=== PATIENT | female | born 1940 | race Caucasian/White ===

== ENCOUNTER 2018-01-03 10:59 | Emergency (ER) | payer OTHER ==
[~2018-01-03] VITALS: Ht 152.4 cm; Wt 69.9 kg
[~2018-01-03 10:59] MED LIST: PRED1SUS3 OPR
[2018-01-03 11:03] VITALS: TEMP 36.6; Ht 152.4 cm; Wt 69.9 kg
[2018-01-03 11:28] VITALS: O2SAT 97
[2018-01-03] MEDS ORDERED: OPTIRAY 320 IV PRN (11:30)
--- NOTE | 2018-01-03 11:39 | EMERGENCY ROOM VISIT NOTE ---
ED Visit Note First contact with patient: 11:06 CHIEF COMPLAINT: Shortness of breath, left upper back pain HISTORY OF PRESENTING ILLNESS: This is a 77-year-old female who presents to the emergency department with complaint of shortness of breath and left upper back pain that started yesterday. Patient states that she has been having a cough for the past week that she attributes to allergies, she states yesterday she was having a coughing fit when she got a sudden sharp pain in her left upper back. She describes the pain is constant, sharp and stabbing, worse with lying down, better with getting up and walking, rates as 8/10. She has been taking ibuprofen which she states helps the pain. She states that her cough has been productive of some light yellow sputum, she denies any blood. She denies any fevers or chills. She denies any chest pain. She denies any dizziness or syncope. She denies abdominal pain, back pain, nausea or vomiting, diarrhea, bloody or black stools, urinary symptoms, or unusual rash. Patient states that she has not seen her doctor in several years. REVIEW OF SYSTEMS: A complete 10 point review of systems was reviewed with the patient with pertinent positives and negatives as per history of present illness. All else were negative. PAST MEDICAL HISTORY: Patient reports a remote history of iron deficiency anemia , she is not currently on medications for this. SOCIAL HISTORY: Lives at home. She denies tobacco use, alcohol or recreational drug use. ALLERGIES: No known allergies. PHYSICAL EXAM: CONSTITUTIONAL: Pleasant and cooperative. No acute distress. Well appearing and well nourished. HEENT: Normocephalic, atraumatic. Pupils equal, round and reactive to light, EOMI. TMs normal. Pharynx normal. NECK: Supple, full active range of motion without discomfort. No cervical adenopathy. RESPIRATORY: Slightly diminished in the bases, otherwise clear to auscultation bilaterally with no wheezing, crackles, rhonchi or stridor. Breathing appears mildly labored, but no tachypnea or accessory muscle use. Equal expansion bilaterally. CARDIOVASCULAR: Regular rate and rhythm with no murmurs, rubs or gallops. Normal peripheral perfusion. No edema. GASTROINTESTINAL: Soft, nontender, nondistended. No palpable masses or HSM. Bowel sounds present in all quadrants. MUSCULOSKELETAL: Full range of motion of all joints without discomfort. INTEGUMENTARY: No rash or other significant dermatologic conditions noted. NEUROLOGIC: Alert and oriented X 4 with normal affect. Normal strength and sensation in all 4 extremities. No focal neurologic deficits noted. Normal speech. Normal gait observed. ED COURSE AND MEDICAL DECISION MAKING: CC: Patient presenting with complaint of left upper back pain, shortness of breath, and cough DIFFERENTIAL DIAGNOSIS: Includes, but not limited to viral URI, bronchitis, pneumonia, PE, rib fracture, musculoskeletal sprain/strain, costochondritis, ACS , among others. INTERPRETATION OF LABS: No leukocytosis, anemia (appears microcytic), no significant electrolyte abnormalities, normal renal function, normal liver enzymes and lipase. Negative troponin. IMAGING: CHEST 2 VIEWS ROUTINE HISTORY: 77 years-old Female CHEST PAIN acute atypical chest pain COMPARISON: None available TECHNIQUE: PA and lateral views of the chest FINDINGS: The cardiomediastinal and hilar silhouettes are within normal limits. No pneumothorax, pleural effusion, focal airspace consolidation or overt pulmonary edema. Degenerative changes of the shoulders and spine. IMPRESSION: No acute process. ----- (CHEST FOR PE) ANGIO WITH CT DOSE: 443.35 mGy.cm HISTORY: 77 years-old Female presents with acute atypical chest pain and shortness of breath with cough TECHNIQUE: Multiple CTA images of the chest were obtained after the intravenous administration of 88 ml Optiray 320. Coronal and sagittal MIPS were obtained from the axial data set and were submitted for review. A dose lowering technique was utilized adhering to the principles of ALARA. COMPARISON: Chest radiographs of same day FINDINGS: CTA: Moderate multichamber cardiac enlargement without pericardial effusion. Coronary arterial calcifications are noted. Thoracic aorta is normal in both course and caliber without aneurysm, dissection or significant atherosclerotic plaquing. The imaged great vessels appear patent. The pulmonary arterial tree is opacified to level of the lobar branches with the segmental and subsegmental branches not well seen secondary to respiratory motion, notably at the level of the lung bases. CT CHEST: No dominant thyroid nodule. 7 mm right tracheoesophageal recess lymph node is seen on image 27 series 4. Mildly enlarged 11 mm subcarinal lymph node. There are multiple prominent nonenlarged paratracheal lymph nodes also present. There is no pneumothorax or pleural effusion. Mild dependent subsegmental atelectasis. No suspicious pulmonary nodules or masses. Mild bronchial wall thickening is noted bilaterally. No acute process of the imaged upper abdomen. Soft tissues are within normal limits. Degenerative changes of the spine are noted. IMPRESSION: 1. No evidence of acute aortic pathology or evidence of pulmonary thromboembolic disease. Study however is limited secondary to respiratory motion as above. 2. Mild mediastinal adenopathy, possibly reactive. 3. Mild bilateral bronchial wall thickening suggests bronchitis. No lobar airspace consolidation to suggest pneumonia. 4. Cardiomegaly with coronary arterial disease. EKG: Shows normal sinus rhythm with a rate of 81 bpm, no acute ischemic changes noted by my interpretation. No previous EKGs available for comparison. MEDICATION RECONCILIATION: I attest that I have personally reviewed the patient 's current medication list. INITIAL VITAL SIGNS REVIEW: I reviewed the patient's initial vital signs and interpret them as follows: T: Afebrile; BP: Hypertensive; HR: Within normal limits; RR: Within normal limits; Pulse Ox: Within normal limits on room air. Blood pressure screening: The patient was found to have an elevated blood pressure and was referred to their primary doctor for recheck and further treatment. SUMMARY: Patient was evaluated at bedside, history and physical exam performed. Patient is alert and oriented, in no acute distress, but does have mildly labored breathing. EKG reviewed at bedside, noting normal sinus rhythm with no acute ischemic changes. Orders were placed at bedside for labs, chest x-ray, CT chest to evaluate for PE. Patient discussed with Dr. Joaquin, who agrees with my assessment and plan. Labs and imaging reviewed as above, no evidence for PE or other significant cardiopulmonary disease. Findings consistent with bronchitis. Patient was given IV Toradol for her pain, with good improvement. She was given an albuterol inhaler with spacer for her cough, she states that this has helped. Labs notable for anemia, which appears to be microcytic. Digital rectal exam was performed with survey cad technician serving as rn cardiovascular icu, noting brown stool that is guaiac negative. Patient does report a history of iron deficiency anemia in the past, but states she has not been taking iron supplements for years. Spoke with Tyrell from case management, we are unable to obtain any previous lab values for comparison. Given patient's reported history of iron deficiency anemia and that she appears to be clinically stable, I do feel she is appropriate for discharge with PCP follow-up. Case management worked with the patient to establish a follow-up appointment with her PCP to address the anemia, as well as follow-up on her hypertension and bronchitis from today. Patient reassessed multiple times throughout ED stay, she appears more comfortable and states that she is feeling much better. She is asking to be discharged home. Patient was updated on all results and plan for discharge, she was encouraged to follow closely with her PCP. She was sent home with the albuterol inhaler and instructed on its use. Patient was also given strict return precautions should her symptoms worsen, she verbalized understanding. Patient was discharged home in stable condition and ambulatory. Current/Historical Medications No Active Prescriptions or Reported Meds Allergies Coded Allergies: No Known Allergies (Unverified , 01/03/18) Vital Signs Date Time Temp Pulse Resp B/P (MAP) Pulse Ox O2 Delivery O2 Flow Rate FiO2 01/03/18 15:11 93 20 198/93 100 01/03/18 14:11 83 20 207/91 97 Room Air 01/03/18 12:52 95 01/03/18 12:46 95 20 209/97 98 Room Air 01/03/18 11:28 97 Room Air 01/03/18 11:03 36.6 74 18 166/75 100 Room Air Laboratory Results 01/03/18 11:20 Red Blood Count 3.80, Mean Corpuscular Volume 78.2, Mean Corpuscular Hemoglobin 23.4, Mean Corpuscular Hemoglobin Concent 30.0, Mean Platelet Volume 9.6, Neutrophils (%) (Auto) 53.0, Lymphocytes (%) (Auto) 32.1, Monocytes (%) (Auto) 10.4, Eosinophils (%) (Auto) 3.7, Basophils (%) (Auto) 0.4, Neutrophils # (Auto ) 2.59, Lymphocytes # (Auto) 1.57, Monocytes # (Auto) 0.51, Eosinophils # (Auto ) 0.18, Basophils # (Auto) 0.02 01/03/18 11:20 Test 01/03/18 11:20 White Blood Count 4.89 K/uL (4.8-10.8) Red Blood Count 3.80 M/uL (4.2-5.4) Hemoglobin 8.9 g/dL (12.0-16.0) Hematocrit 29.7 % (37-47) Mean Corpuscular Volume 78.2 fL (80-100) Mean Corpuscular Hemoglobin 23.4 pg (25-34) Mean Corpuscular Hemoglobin Concent 30.0 g/dl (32-36) Platelet Count 365 K/uL (130-400) Mean Platelet Volume 9.6 fL (7.4-10.4) Neutrophils (%) (Auto) 53.0 % Lymphocytes (%) (Auto) 32.1 % Monocytes (%) (Auto) 10.4 % Eosinophils (%) (Auto) 3.7 % Basophils (%) (Auto) 0.4 % Neutrophils # (Auto) 2.59 K/uL (1.4-6.5) Lymphocytes # (Auto) 1.57 K/uL (1.2-3.4) Monocytes # (Auto) 0.51 K/uL (0.11-0.59) Eosinophils # (Auto) 0.18 K/uL (0-0.5) Basophils # (Auto) 0.02 K/uL (0-0.2) RDW Standard Deviation 47.4 fL (36.4-46.3) RDW Coefficient of Variation 16.6 % (11.5-14.5) Immature Granulocyte % (Auto) 0.4 % Immature Granulocyte # (Auto) 0.02 K/uL (0.00-0.02) Red Blood Cell Morphology Unremarkable Anion Gap 5.0 mmol/L (3-11) Est Creatinine Clear Calc Drug Dose 33.7 ml/min Estimated GFR () 50.1 Estimated GFR (Non- 43.3 BUN/Creatinine Ratio 13.5 (10-20) Calcium Level 8.5 mg/dl (8.5-10.1) Total Bilirubin 0.3 mg/dl (0.2-1) Direct Bilirubin 0.1 mg/dl (0-0.2) Aspartate Amino Transf (AST/SGOT) 19 U/L (15-37) Alanine Aminotransferase (ALT/SGPT) 21 U/L (12-78) Alkaline Phosphatase 100 U/L (45-117) Troponin I < 0.015 ng/ml (0-0.045) Total Protein 7.7 gm/dl (6.4-8.2) Albumin 3.4 gm/dl (3.4-5.0) Lipase 159 U/L (73-393) Medications Administered Medications (Trade) Dose Ordered Sig/Ana Route Start Time Stop Time Status Last Admin Dose Admin Ketorolac Tromethamine (Toradol Inj) 15 mg NOW STAT IV 01/03/18 13:56 01/03/18 13:58 DC 01/03/18 14:04 15 MG Albuterol (Ventolin Hfa Inhaler) 2 puffs NOW ONCE INH 01/03/18 14:00 01/03/18 14:01 DC 01/03/18 14:04 2 PUFFS Departure Information Impression Primary Impression: Musculoskeletal back pain Additional Impression: Acute bronchitis Dispostion Home / Self-Care Condition GOOD Prescriptions No Active Prescriptions or Reported Meds Referrals Lionel Marroquin D.O. (PCP) Patient Instructions ED Bronchitis Asthmatic, ED Spasm Back No Trauma, My [facility] Additional Instructions You have been evaluated in the emergency department for your cough and back pain. There is no evidence of pneumonia on your chest x-ray. It is suspected that you have bronchitis, which is most likely caused by a virus. Use the albuterol inhaler TWO puffs every 4 hours with the spacer as needed for cough, wheezing, chest tightness. You should also use this before bed to help prevent coughing so that you can sleep better at night. For chest pain, you can use the following [id number] medicines (if >12 yo) : - Regular strength (325mg/tab) Tylenol (acetaminophen) 2 tabs every 4-6 hours as needed. Do not exceed 10 tablets in a 24 hour period. Avoid taking more than 3000 mg of Tylenol per day. This includes any other sources of acetaminophen you may take on a regular basis. - Regular strength (200 mg/tab) Advil (ibuprofen) 3 tabs every 6-8 hours as needed. Do not exceed a dose of 2400 mg per day. - For best results, alternate dosing of Tylenol and Advil. Take it easy for the next few days, no strenuous activity, heavy lifting, or bending/twisting motions, to allow your back to rest. Alternate heat and ice for comfort. After heat, you may do gentle stretching and massage to the area. Drink plenty of fluids to stay well hydrated. Please follow-up with your PCP in the next few days to be rechecked if your symptoms are not getting any better. You also need to have your blood pressure rechecked and follow-up of your anemia. Please return to the emergency department if your symptoms worsen over the next 2-3 days despite treatment course outlined above. Return to the emergency department if you develop the following symptoms of: inability to swallow solids , liquids, or drool; excessive wheezing or inability to catch your breath; worsening chest pain, coughing up blood, severe dizziness or passing out; fever or pain that becomes unmanageable with [id number] medications; or any other concerns. Problem Qualifiers Additional Impression: Acute bronchitis Bronchitis organism: unspecified organism Qualified Codes: J20.9 - Acute bronchitis, unspecified
[2018-01-03 11:58] LABS: ALBUMIN 3.4 gm/dl (3.4-5.0); ALT/SGPT 21 U/L (12-78); AST/SGOT 19 U/L (15-37); BLOOD UREA NITROGEN 16 mg/dl (7-18); CALCIUM 8.5 mg/dl (8.5-10.1); CARBON DIOXIDE 24 mmol/L (21-32); GLUCOSE 96 mg/dl (70-99); HEMATOCRIT 29.7 % (37-47); HEMOGLOBIN 8.9 g/dL (12.0-16.0); LIPASE 159 U/L (73-393); MEAN CELL VOLUME 78.2 fL (80-100); MEAN CORPUSCULAR HEMOGLOBIN 23.4 pg (25-34); MEAN PLATELET VOLUME 9.6 fL (7.4-10.4); PLATELET COUNT 365 K/uL (130-400); POTASSIUM 4.1 mmol/L (3.5-5.1); RED CELL DISTRIBUTION WIDTH CV 16.6 % (11.5-14.5); RED CELL DISTRIBUTION WIDTH SD 47.4 fL (36.4-46.3); SODIUM 141 mmol/L (136-145); WHITE BLOOD COUNT 4.89 K/uL (4.8-10.8)
[2018-01-03 12:03] LABS: ALKALINE PHOSPHATASE 100 U/L (45-117); TOTAL PROTEIN 7.7 gm/dl (6.4-8.2)
--- NOTE | 2018-01-03 12:21 | DIAGNOSTIC IMAGING REPORT ---
CHEST 2 VIEWS ROUTINE HISTORY: 77 years-old Female CHEST PAIN acute atypical chest pain COMPARISON: None available TECHNIQUE: PA and lateral views of the chest FINDINGS: The cardiomediastinal and hilar silhouettes are within normal limits. No pneumothorax, pleural effusion, focal airspace consolidation or overt pulmonary edema. Degenerative changes of the shoulders and spine. IMPRESSION: No acute process. The above report was generated using voice recognition software. It may contain grammatical, syntax or spelling errors. Electronically signed by: Yung Maguire M.D. 01/03/2018 12:20 PM Dictated Date/Time: 01/03/2018 12:18 PM
--- NOTE | 2018-01-03 12:55 | DIAGNOSTIC IMAGING REPORT ---
(CHEST FOR PE) ANGIO WITH CT DOSE: 443.35 mGy.cm HISTORY: 77 years-old Female presents with acute atypical chest pain and shortness of breath with cough TECHNIQUE: Multiple CTA images of the chest were obtained after the intravenous administration of 88 ml Optiray 320. Coronal and sagittal MIPS were obtained from the axial data set and were submitted for review. A dose lowering technique was utilized adhering to the principles of ALARA. COMPARISON: Chest radiographs of same day FINDINGS: CTA: Moderate multichamber cardiac enlargement without pericardial effusion. Coronary arterial calcifications are noted. Thoracic aorta is normal in both course and caliber without aneurysm, dissection or significant atherosclerotic plaquing. The imaged great vessels appear patent. The pulmonary arterial tree is opacified to level of the lobar branches with the segmental and subsegmental branches not well seen secondary to respiratory motion, notably at the level of the lung bases. CT CHEST: No dominant thyroid nodule. 7 mm right tracheoesophageal recess lymph node is seen on image 27 series 4. Mildly enlarged 11 mm subcarinal lymph node. There are multiple prominent nonenlarged paratracheal lymph nodes also present. There is no pneumothorax or pleural effusion. Mild dependent subsegmental atelectasis. No suspicious pulmonary nodules or masses. Mild bronchial wall thickening is noted bilaterally. No acute process of the imaged upper abdomen. Soft tissues are within normal limits. Degenerative changes of the spine are noted. IMPRESSION: 1. No evidence of acute aortic pathology or evidence of pulmonary thromboembolic disease. Study however is limited secondary to respiratory motion as above. 2. Mild mediastinal adenopathy, possibly reactive. 3. Mild bilateral bronchial wall thickening suggests bronchitis. No lobar airspace consolidation to suggest pneumonia. 4. Cardiomegaly with coronary arterial disease. The above report was generated using voice recognition software. It may contain grammatical, syntax or spelling errors. Electronically signed by: Yung Maguire M.D. 01/03/2018 12:53 PM Dictated Date/Time: 01/03/2018 12:47 PM
[2018-01-03 12:57] LABS: BASO % 0.4 %; BASO ABS # 0.02 K/uL (0-0.2); EOS % 3.7 %; EOS ABS # 0.18 K/uL (0-0.5); IG# 0.02 K/uL (0.00-0.02); LYMPH % 32.1 %; LYMPH ABS # 1.57 K/uL (1.2-3.4); MONO % 10.4 %; MONO ABS # 0.51 K/uL (0.11-0.59); NEUT ABS # 2.59 K/uL (1.4-6.5)
--- NOTE | 2018-01-03 13:04 | EMERGENCY ROOM VISIT NOTE ---
ED Visit Note First contact with patient: 11:06 Patient was seen by our PA/SENIOR ADVISOR. I was involved in the patient's care and did evaluate the patient myself. I was involved in the care throughout the ER stay. The patient presents with pleuritic chest pain. Hemoglobin is somewhat low, this will need to be further investigated. Cardiac workup is benign. No findings to suggest PE or pneumonia or pneumothorax by CT, bronchitis was suggested. Patient was reassured and will be discharged home with outpatient follow-up.
[2018-01-03] MEDS ORDERED: KETOROLAC TROMETHAMINE 30 MG/ML VIAL IV STA (13:56)
[2018-01-03] MEDS ORDERED: ALBUTEROL HFA 8 GM INHALER INH ONE (14:00)
[2018-01-03 15:11] VITALS: BP 198/93; PULSE 93; O2SAT 100
== END 2018-01-03 15:13 | disposition home or self-care (01) ==
LOC: C.EDB 11:01 → C.EDC 15:13
DX: J20.9 Acute bronchitis, unspecified (principal); M54.9 Dorsalgia, unspecified

== ENCOUNTER 2021-04-16 09:07 | Observation (INO) ==
[2021-04-16] MEDS ORDERED: ONDANSETRON INJ 2 MG/ML 2 ML VIAL IV STA (09:30)
[2021-04-16] MEDS ORDERED: KETOROLAC TROMETHAMINE 15 MG/ML VIAL IV ONE (09:30)
[2021-04-16] MEDS ORDERED: MoRPHine SULFATE 2 MG/ML CARP IV STA (09:30)
--- NOTE | 2021-04-16 09:33 | Emergency Department Note ---
Impression & Plan Cecum mass, Anemia, Hypertension, Back pain ED Provider Note NAME: KATJA TSAI AGE: 80 SEX: F : 1940 ARRIVES VIA: Walk-In INFORMANT: Patient ED PROVIDER(S): Bryan Cordero DO CHIEF COMPLAINT: Left back pain HPI: Patient is an 80-year-old female who presents ER for left lower back pain. This has been present for the past 6 months. She notes it comes and goes. Pain currently is an 8 out of 10. She notes it is worse when lying down and she will get spasms and shocks to get up. When she walks around it improves. She denies any belly pain, nausea, vomiting, or diarrhea. She has been taking Tylenol with minimal improvement. Denies any dysuria, urgency, or frequency. No other exacerbating or remitting factors other than significantly worsened with palpation. She denies any weakness or numbness in the legs. Pain does go down to her left lower buttocks. She has spasms going up to her left mid thoracic spine. ROS: See above HPI for pertinent positives & negatives. A total of 10 systems reviewed and were otherwise negative. PAST MEDICAL HISTORY:See Below PAST SURGICAL HISTORY:See Below FAMILY HISTORY:See Below SOCIAL HISTORY:See Below HOME MEDICATIONS:See Below ALLERGIES:See Below VITALS:See Below PHYSICAL EXAMINATION: GENERAL: Sitting up in bed, alert, well appearing, well nourished, no distress, non-toxic EYE EXAM: normal conjunctiva. NECK: supple, no nuchal rigidity, no adenopathy, non-tender LUNGS: Clear to auscultation. Normal chest wall mechanics HEART: S1 normal and S2 normal ABDOMEN: abdomen soft, non-tender, normo-active bowel sounds, no masses, no rebound or guarding. BACK: Back is symmetrical on inspection and there is no deformity, no midline tenderness, diffuse lower lumbar paraspinal tenderness tracking up to the lower mid thoracic SKIN: no rashes and no bruising UPPER EXTREMITIES: upper extremities are grossly normal. LOWER EXTREMITIES: Flexion and extension of the hips, knees, ankles, and EHL 5/5 bilaterally. Gross sensation is intact. DPs are 2/4 bilateral. Patellar and Achilles reflexes are 2/4 bilateral. Able to walk without difficulty. NEURO EXAM: Normal sensorium, cranial nerves II-XII grossly intact, normal speech, no gross weakness of arms, no gross weakness of legs. MEDICAL DECISION MAKING: Patient is an 80-year-old female who presents the ER for left-sided back pain. On exam she has reproducible pain radiating down to the back. IV was established blood work was obtained. Labs show no significant leukocytosis. There is a significant anemia of 5.9. Patient was fairly pale appearing. BMP with a slightly low CO2 at 20. LFTs bilirubin was unremarkable. Lipase was normal. UA was clean. Covid was negative. Patient was typed and crossed. She was ordered 2 units of PRBCs. Rectal was performed with nurse at bedside but no stool present. It was heme-negative. CT abdomen pelvis shows cecal mass. CT lumbar spine showed DJD. Patient was given IV fluids morphine and updated bedside. She was given an order 2 units of PRBCs while in the ER. Discussed with hospitalist admitted for further work-up. Triage Nursing notes reviewed. Limited review of prior medical records performed Vital Signs: reviewed and remarkable for HTN Differential diagnosis: Differential diagnoses includes but is not limited to lumbar radiculopathy, kidney stone, muscle strain, facture, cauda equina, mass, and disc herniation. ER treatment provided: See below Diagnostics interpreted by me: Cardiac Monitoring: An order was placed for continuous cardiac monitoring. The monitor shows a rate of 62 with sinus rhythm. Laboratory studies: As stated above and show below. Imaging studies: CT abdomen pelvis shows a cecal mass Consultation(s): Discussed with Hugh Calabrese for admission Discussed with Debra carias from general surgery in regards to the CT showing cecal mass and pushing on the appendix with mild surrounding inflammation Procedures: none Critical Care: I have personally spent 31 minutes of critical care time in the direct management of this patient. This includes bedside care, interpretation of diagnostic studies, and testing, discussion with consultants, patient, and family members, and other required patient management activities. This 31 minutes is in excess of all separately billable procedures. Past Med/Surg History Medical History (Updated 04/16/21 @ 16:14 by Bryan Cordero DO) Anemia CKD (chronic kidney disease) stage 4, GFR 15-29 ml/min Surgical History (Updated 04/16/21 @ 12:18 by Juancho Calabrese MD) H/O section Social History (Updated 04/16/21 @ 12:19 by Juancho Calabrese MD) Smoking Status: Former smoker Tobacco Type: Cigarettes Hx Alcohol Use: Yes (Occasional) Alcohol type: beer Hx Substance Use: No Feels Safe at Home: Yes Allergies Allergies Allergy/AdvReac Type Severity Reaction Status Date / Time No Known Allergies Allergy Unverified 04/16/21 11:26 Home Meds Home Medications Medication Instructions Recorded Confirmed acetaminophen 500 mg tablet 1,000 mg PO Q6H PRN 04/16/21 04/16/21 (Tylenol Extra Strength) Results & Data (ED) Vital Signs Vital Signs - 24 hr 04/16/21 09:12 04/16/21 09:54 04/16/21 10:22 Temperature 36.4 C L Temperature Source Oral Pulse Rate 78 Pulse Rate [Finger] 97 H Pulse Rhythm Regular Pulse Strength Normal Respiratory Rate 20 22 Respiratory Effort / Characteristics Non-Labored Spontaneous Respiratory Depth Normal Respiratory Pattern Regular Blood Pressure 173/67 H Blood Pressure [Left Arm] 193/81 H Blood Pressure Mean 102 Blood Pressure Mean [Left Arm] 118 Pulse Oximetry 100 96 96 Oxygen Delivery Method Room Air Room Air Room Air Sepsis Recent Fever Within 48 Hours No Sepsis New/Unexplained Change in Mental Status N/A Sepsis Action Taken by Nursing No Action Required 04/16/21 10:47 04/16/21 12:08 Temperature 36.8 C Temperature Source Oral Pulse Rate 69 Pulse Rate [Finger] 94 H Pulse Rhythm Pulse Strength Respiratory Rate 20 14 Respiratory Effort / Characteristics Respiratory Depth Respiratory Pattern Blood Pressure 187/65 H Blood Pressure [Left Arm] 191/86 H Blood Pressure Mean 105 Blood Pressure Mean [Left Arm] 121 Pulse Oximetry 98 97 Oxygen Delivery Method Room Air Sepsis Recent Fever Within 48 Hours Sepsis New/Unexplained Change in Mental Status Sepsis Action Taken by Nursing Laboratory Data Result diagrams: 04/16/21 09:45 04/16/21 09:45 Lab Results 04/16/21 04/16/21 04/16/21 Range/Units 09:45 09:45 10:29 WBC 6.69 (4.8-10.8) K/uL RBC 3.57 L (4.2-5.4) M/uL Hgb 5.9 L* (12.0-16.0) g/dL Hct 22.8 L (37-47) % MCV 63.9 L (80-100) fL MCH 16.5 L (25-34) pg MCHC 25.9 L (32-36) g/dL RDW Std Deviation 48.3 H (36.4-46.3) fL RDW Coeff of Stevie 20.4 H (11.5-14.5) % Plt Count 656 H (130-400) K/uL MPV 9.2 (7.4-10.4) fL Immature Gran % (Auto) 0.1 % Neut % (Auto) 55.7 % Lymph % (Auto) 33.5 % [place] % (Auto) 6.6 % Eos % (Auto) 3.7 % Baso % (Auto) 0.4 % Neut # (Auto) 3.72 (1.4-6.5) K/uL Lymph # (Auto) 2.24 (1.2-3.4) K/uL [place] # (Auto) 0.44 (0.11-0.59) K/uL Eos # (Auto) 0.25 (0-0.5) K/uL Baso # (Auto) 0.03 (0-0.2) K/uL Immature Gran # (Auto) 0.01 (0.00-0.02) K/uL Hypochromasia Present Anisocytosis Present Sodium 143 (136-145) mmol/L Potassium 4.2 (3.5-5.1) mmol/L Chloride 112 H (98-107) mmol/L Carbon Dioxide 20 L (21-32) mmol/L Anion Gap 11.0 (3-11) BUN 13 (7-18) mg/dl Creatinine 1.29 H (0.6-1.2) mg/dl Est Cr Clr Drug Dosing 26.0 ml/min Est GFR ( Amer) 45.0 ml/min Est GFR (Non-Af Amer) 38.8 ml/min BUN/Creatinine Ratio 10.3 (10-20) Glucose 90 (70-99) mg/dl Calcium 8.5 (8.5-10.1) mg/dl Total Bilirubin 0.3 (0.2-1) mg/dl AST 11 L (15-37) U/L ALT 11 L (12-78) U/L Alkaline Phosphatase 110 (45-117) U/L Total Protein 7.5 (6.4-8.2) gm/dl Albumin 3.3 L (3.4-5.0) gm/dl Globulin 4.2 H (2.5-4.0) gm/dl Albumin/Globulin Ratio 0.8 L (0.9-2) Lipase 135 (73-393) U/L COVID-19 Eval Order SARS-CoV-2 (PCR) (Negative) Blood Type A Positive Blood Type Recheck Antibody Screen NEGATIVE Crossmatch See Detail 04/16/21 04/16/21 04/16/21 Range/Units 11:03 11:45 11:45 WBC (4.8-10.8) K/uL RBC (4.2-5.4) M/uL Hgb (12.0-16.0) g/dL Hct (37-47) % MCV (80-100) fL MCH (25-34) pg MCHC (32-36) g/dL RDW Std Deviation (36.4-46.3) fL RDW Coeff of Stevie (11.5-14.5) % Plt Count (130-400) K/uL MPV (7.4-10.4) fL Immature Gran % (Auto) % Neut % (Auto) % Lymph % (Auto) % [place] % (Auto) % Eos % (Auto) % Baso % (Auto) % Neut # (Auto) (1.4-6.5) K/uL Lymph # (Auto) (1.2-3.4) K/uL [place] # (Auto) (0.11-0.59) K/uL Eos # (Auto) (0-0.5) K/uL Baso # (Auto) (0-0.2) K/uL Immature Gran # (Auto) (0.00-0.02) K/uL Hypochromasia Anisocytosis Sodium (136-145) mmol/L Potassium (3.5-5.1) mmol/L Chloride (98-107) mmol/L Carbon Dioxide (21-32) mmol/L Anion Gap (3-11) BUN (7-18) mg/dl Creatinine (0.6-1.2) mg/dl Est Cr Clr Drug Dosing ml/min Est GFR ( Amer) ml/min Est GFR (Non-Af Amer) ml/min BUN/Creatinine Ratio (10-20) Glucose (70-99) mg/dl Calcium (8.5-10.1) mg/dl Total Bilirubin (0.2-1) mg/dl AST (15-37) U/L ALT (12-78) U/L Alkaline Phosphatase (45-117) U/L Total Protein (6.4-8.2) gm/dl Albumin (3.4-5.0) gm/dl Globulin (2.5-4.0) gm/dl Albumin/Globulin Ratio (0.9-2) Lipase (73-393) U/L COVID-19 Eval Order Covid19 at [facility] SARS-CoV-2 (PCR) NEGATIVE (Negative) Blood Type Blood Type Recheck A Positive Antibody Screen Crossmatch Administered Medications Discontinued Medications Ioversol (Optiray 320 100ml) 95 ml IV ONCE ONE Stop: 04/16/21 10:35 Last Admin: 04/16/21 10:35 Dose: 95 ml Documented by: [id number] Ketorolac Tromethamine (Ketorolac Tromethamine 15 Mg/Ml Vial) 10 mg IV NOW ONE Stop: 04/16/21 09:31 Last Admin: 04/16/21 09:50 Dose: 10 mg Documented by: [id number] Morphine Sulfate (Morphine Sulfate 2 Mg/Ml Carp) 2 mg IV NOW STA Stop: 04/16/21 09:31 Last Admin: 04/16/21 09:50 Dose: 2 mg Documented by: [id number] Morphine Sulfate (Morphine Sulfate 10 Mg/Ml Carp/Vial) 6 mg IV NOW STA Stop: 04/16/21 10:39 Last Admin: 04/16/21 10:44 Dose: 6 mg Documented by: [id number] Ondansetron HCl (Ondansetron Inj 2 Mg/Ml 2 Ml Vial) 4 mg IV NOW STA Stop: 04/16/21 09:31 Last Admin: 04/16/21 09:49 Dose: 4 mg Documented by: [id number] Imaging Data Radiologist's Impression: Lumbar Spine CT 04/16/21 09:30 CT OF THE LUMBAR SPINE CLINICAL HISTORY: Lower back pain. COMPARISON STUDY: No previous studies for comparison. TECHNIQUE: Helical axial images of the lumbar spine were obtained. Sagittal and coronal reconstructions were viewed. Automated exposure control was utilized for the study. A dose lowering technique was utilized adhering to the principles of ALARA. FINDINGS: For purposes of numbering on this exam, the L5-S1 disc space is assigned to axial image 293 of 351. There is mild dextroscoliosis of the upper lumbar spine and mild levoscoliosis of the mid to lower lumbar spine. Vertebral body heights are maintained. No acute fracture. There are no suspicious osseous lesions. Paravertebral soft tissues are unremarkable. There bilateral renal parapelvic cysts. Several small bilateral renal calculi are present. No suspicious lesions are identified within visualized skeletal structures. The sacroiliac joints are intact. The central canal and neural foramen are suboptimally assessed by CT. There is moderate multilevel facet arthrosis and degenerative disc disease with disc space narrowing and osteophytosis. There is vacuum disc phenomenon at several levels. Multiple disc bulges are present. There is no evidence for severe central canal stenosis. IMPRESSION: 1. No acute lumbar spine fracture or subluxation. 2. Moderate multilevel degenerative disc disease and facet arthrosis within the lumbar spine. Suboptimal evaluation of central canal given CT technique. 3. Mild S-shaped scoliosis of the lumbar spine. 4. Right-sided nephrolithiasis. ACT 112: Negative or not required by law. Electronically signed by: Carlos Linn M.D. 04/16/2021 10:15 AM Abdomen/Pelvis CT 04/16/21 10:[address] WITH IV CONTRAST CT DOSE: 333.29 mGycm HISTORY: Acute low back pain and lower abdominal discomfort back pain lower hgb TECHNIQUE: Multiaxial CT images of the abdomen and pelvis were performed following the IV administration of 95 cc of Optiray, A dose lowering technique was utilized adhering to the principles of ALARA. COMPARISON STUDY: CT lumbar spine of same day FINDINGS: Moderate cardiomegaly. Mild bibasilar atelectasis/scarring. No pneumatosis or pneumoperitoneum. The spleen, pancreas and adrenal glands are unremarkable. Mild gallbladder distention. Unremarkable liver. Patency of the hepatic and portal veins. Bilateral renal sinus cysts. Cortical thinning of the kidneys. 2 mm nonobstructing calculus of the interpolar right kidney. No ureteral calculi or hydronephrosis. Pelvic floor relaxation with small cystocele. Mild urinary bladder wall thickening. Small fat filled left inguinal hernia. The fundal endometrium measures the upper limits of normal at 5 mm. The fundal uterus is heterogeneous. No adnexal mass lesion. Moderate atherosclerosis of the aorta without aneurysm. Unremarkable IVC. No adenopathy. No paravertebral edema or retroperitoneal hematoma identified. No bowel obstruction. Colonic diverticulosis. Masslike thickening within the base of the cecum measures 4.6 x 3.2 x 3.7 cm. There are a few adjacent lymph nodes within the right lower quadrant mesentery measuring up to 6 mm. The appendix measures the upper limits of normal at 6 mm and is fluid-filled. Trace periappendiceal stranding. Unremarkable soft tissues. Degenerative changes of the spine, pelvis and hips. Mild sigmoidal scoliosis of the lumbar spine. No suspicious bone lesions. IMPRESSION: 1. Masslike thickening at the base of the cecum measuring up to 4.6 cm is suspicious for a possible mucosal neoplasm. Correlation with colonoscopy recommended. No associated bowel obstruction. 2. The appendix measures in the upper limits of normal at 6 mm and is fluid- filled with trace periappendiceal stranding. The previously described abnormality of the cecum may partially obstruct the appendix. Correlate with clinical exam findings and laboratory analysis to exclude acute appendicitis. 3. Nonenlarged lymph nodes of the right lower quadrant mesentery, equivocal for lymphatic metastasis. 4. Nonobstructing right nephrolithiasis. 5. Additional findings as above. ACT 112: Negative or not required by law. The above report was generated using voice recognition software. It may contain grammatical, syntax or spelling errors. Electronically signed by: Timo Maguire M.D. 04/16/2021 11:05 AM Chest X-Ray 04/16/21 10:02 SINGLE VIEW CHEST CLINICAL HISTORY: Thoracic back pain FINDINGS: An AP, portable, upright chest radiograph is compared to chest x-ray and chest CT dated 01/03/2018. The heart is enlarged noting atherosclerotic calcification of the thoracic aorta. The pulmonary vasculature is noncongested. Enlargement of the central pulmonary arteries suggests pulmonary artery hypertension. Chronic interstitial thickening is similar to previous. There is bibasilar scarring/atelectasis. No airspace consolidation or large pleural effusion is identified. No pneumothorax is seen. The skeletal structures are osteopenic. The bony thorax is grossly intact. IMPRESSION: Cardiomegaly with no acute cardiopulmonary abnormality. ACT 112: Negative or not required by law. Electronically signed by: Stephon Mendieta M.D. 04/16/2021 11:05 AM Discharge Plan Visit Data Chief Complaint: Back Injury/Pain Stated Complaint: BACK PAIN ED Provider: Bryan Cordero Discharge Problem: Cecum mass, Anemia, Hypertension, Back pain Patient Disposition: Admitted As Inpatient Discharge Instructions Interventions: ED Discharge Assessment Last Done: 04/16/21 15:06
[2021-04-16 10:01] LABS: Hematocrit (blood only) 22.8 % (37-47); Hemoglobin 5.9 g/dL (12.0-16.0); Mean Corpuscular Hemoglobin 16.5 pg (25-34); Mean Corpuscular Hgb Conc 25.9 g/dL (32-36); Mean Corpuscular Volume 63.9 fL (80-100); Mean Platelet Volume 9.2 fL (7.4-10.4); Platelet Count 656 K/uL (130-400); RDW Coefficient of Variation 20.4 % (11.5-14.5); RDW Standard Deviation 48.3 fL (36.4-46.3); Red Blood Count 3.57 M/uL (4.2-5.4); White Blood Count 6.69 K/uL (4.8-10.8)
[2021-04-16] MEDS ORDERED: SODIUM CHLORIDE 0.9% 250 ML IV PRN (10:02)
--- NOTE | 2021-04-16 10:16 | CT Scan Report ---
CT OF THE LUMBAR SPINE CLINICAL HISTORY: Lower back pain. COMPARISON STUDY: No previous studies for comparison. TECHNIQUE: Helical axial images of the lumbar spine were obtained. Sagittal and coronal reconstruct ions were viewed. Automated exposure control was utilized for the study. A dose lowering technique was utilized adhering to the principles of ALARA. FINDINGS: For purposes of numbering on this exam, the L5-S1 disc space is assigned to axial image 293 of 351. There is mild dextroscoliosis of the upper lumbar spine and mild levoscoliosis of the mid to lower lumbar spine. Vertebral body heights are maintained. No acute fracture. There are no suspiciou s osseous lesions. Paravertebral soft tissues are unremarkable. There bilateral renal parapelvic cyst s. Several small bilateral renal calculi are present. No suspicious lesions are identified within vis ualized skeletal structures. The sacroiliac joints are intact. The central canal and neural foramen a re suboptimally assessed by CT. There is moderate multilevel facet arthrosis and degenerative disc di sease with disc space narrowing and osteophytosis. There is vacuum disc phenomenon at several levels. Multiple disc bulges are present. There is no evidence for severe central canal stenosis. IMPRESSION: 1. No acute lumbar spine fracture or subluxation. 2. Moderate multilevel degenerative disc disease and facet arthrosis within the lumbar spine. Subopti mal evaluation of central canal given CT technique. 3. Mild S-shaped scoliosis of the lumbar spine. 4. Right-sided nephrolithiasis. ACT 112: Negative or not required by law. Electronically signed by: Carlos Linn M.D. 04/16/2021 10:15 AM
[2021-04-16 10:18] LABS: Albumin Level 3.3 gm/dl (3.4-5.0); BUN Creatinine Ratio 10.3 (10-20); Calcium 8.5 mg/dl (8.5-10.1); Est GFR (Non-African American) 38.8 ml/min; Potassium 4.2 mmol/L (3.5-5.1)
[2021-04-16 10:21] LABS: Albumin Globulin Ratio 0.8 (0.9-2); Bilirubin,Total 0.3 mg/dl (0.2-1); Globulin 4.2 gm/dl (2.5-4.0); Total Protein 7.5 gm/dl (6.4-8.2)
[2021-04-16 10:30] LABS: Anisocytosis Present; Basophils # (auto) 0.03 K/uL (0-0.2); Basophils % (auto) 0.4 %; Eosinophils # (auto) 0.25 K/uL (0-0.5); Eosinophils % (auto) 3.7 %; Hypochromasia Present; Immature Granulocytes # (auto) 0.01 K/uL (0.00-0.02); Immature Granulocytes % (auto) 0.1 %; Lymphocytes # (auto) 2.24 K/uL (1.2-3.4); Lymphocytes % (auto) 33.5 %; Monocytes # (auto) 0.44 K/uL (0.11-0.59); Monocytes % (auto) 6.6 %; Neutrophils # (auto) 3.72 K/uL (1.4-6.5); Neutrophils % (auto) 55.7 %
[2021-04-16] MEDS ORDERED: OPTIRAY 320 100ml IV ONE (10:34)
[2021-04-16] MEDS ORDERED: MoRPHine SULFATE 10 MG/ML CARP/VIAL IV STA (10:38)
--- NOTE | 2021-04-16 11:06 | XRay Report ---
SINGLE VIEW CHEST CLINICAL HISTORY: Thoracic back pain FINDINGS: An AP, portable, upright chest radiograph is compared to chest x-ray and chest CT dated 12/23. The heart is enlarged noting atherosclerotic calcification of the thoracic aorta. The pulmona ry vasculature is noncongested. Enlargement of the central pulmonary arteries suggests pulmonary [place] ry hypertension. Chronic interstitial thickening is similar to previous. There is bibasilar scarring/ atelectasis. No airspace consolidation or large pleural effusion is identified. No pneumothorax is se en. The skeletal structures are osteopenic. The bony thorax is grossly intact. IMPRESSION: Cardiomegaly with no acute cardiopulmonary abnormality. ACT 112: Negative or not required by law. Electronically signed by: Stephon Mendieta M.D. 04/16/2021 11:05 AM
--- NOTE | 2021-04-16 11:06 | CT Scan Report ---
ABDOMEN AND PELVIS CT WITH IV CONTRAST CT DOSE: 333.29 mGycm HISTORY: Acute low back pain and lower abdominal discomfort back pain lower hgb TECHNIQUE: Multiaxial CT images of the abdomen and pelvis were performed following the IV administrat ion of 95 cc of Optiray, A dose lowering technique was utilized adhering to the principles of ALARA. COMPARISON STUDY: CT lumbar spine of same day FINDINGS: Moderate cardiomegaly. Mild bibasilar atelectasis/scarring. No pneumatosis or pneumoperiton eum. The spleen, pancreas and adrenal glands are unremarkable. Mild gallbladder distention. Unremarka ble liver. Patency of the hepatic and portal veins. Bilateral renal sinus cysts. Cortical thinning of the kidneys. 2 mm nonobstructing calculus of the in terpolar right kidney. No ureteral calculi or hydronephrosis. Pelvic floor relaxation with small cyst ocele. Mild urinary bladder wall thickening. Small fat filled left inguinal hernia. The fundal endome trium measures the upper limits of normal at 5 mm. The fundal uterus is heterogeneous. No adnexal mas s lesion. Moderate atherosclerosis of the aorta without aneurysm. Unremarkable IVC. No adenopathy. No paravertebral edema or retroperitoneal hematoma identified. No bowel obstruction. Colonic diverticulosis. Masslike thickening within the base of the cecum measur es 4.6 x 3.2 x 3.7 cm. There are a few adjacent lymph nodes within the right lower quadrant mesentery measuring up to 6 mm. The appendix measures the upper limits of normal at 6 mm and is fluid-filled. Trace periappendiceal stranding. Unremarkable soft tissues. Degenerative changes of the spine, pelvis and hips. Mild sigmoidal scoliosis of the lumbar spine. No suspicious bone lesions. IMPRESSION: 1. Masslike thickening at the base of the cecum measuring up to 4.6 cm is suspicious for a possible m ucosal neoplasm. Correlation with colonoscopy recommended. No associated bowel obstruction. 2. The appendix measures in the upper limits of normal at 6 mm and is fluid-filled with trace periapp endiceal stranding. The previously described abnormality of the cecum may partially obstruct the appe ndix. Correlate with clinical exam findings and laboratory analysis to exclude acute appendicitis. 3. Nonenlarged lymph nodes of the right lower quadrant mesentery, equivocal for lymphatic metastasis. 4. Nonobstructing right nephrolithiasis. 5. Additional findings as above. ACT 112: Negative or not required by law. The above report was generated using voice recognition software. It may contain grammatical, syntax o r spelling errors. Electronically signed by: Timo Maguire M.D. 04/16/2021 11:05 AM
--- NOTE | 2021-04-16 12:27 | History & Physical Report ---
Date of Service April 16, 2021 Assessment & Plan (1) Anemia: Plan: Hgb of 5.9 in the ED. Microcytic. Pending 2 units of PRBCs. No overt melena or hematochezia; this likely represents chronic bleed from cancer and iron deficiency. - Recheck hgb tomorrow morning after units of blood given (2) Cecum mass: Plan: Concerning for cancer given lack of prior screenings. - Clear liquid diet - GI consulted for possible inpatient colonoscopy (3) Back pain: Plan: Chief complaint. Almost certainly MSK as she has clear tenderness to palpation along the left-side of her back. No spinal tenderness or pain. No red-flag symptoms. - Tylenol PRN - Voltaren gel TID along left back - Baclofen TID PRN (4) CKD (chronic kidney disease) stage 4, GFR 15-29 ml/min: Plan: Cr was 1.29. Last Cr was 1.2 in 2018. I suspect CKD rather than acute kidney injury. Appears euvolemic on exam. - Monitor Cr (5) Hypertension: Plan: Likely undiagnosed as her BP is steadily 170-180/60s in the ED. No symptoms of urgency/emergency. Not a "pill taker," so unclear if she will take HTN meds as outpatient in any event. - Monitor (6) DVT prophylaxis: Plan: SCDs - Holding heparin until after discussion about colonoscopy with GI. I doubt she is having an acute bleed, and cancer would place her at a higher risk of VTE, so consider chemoprophylaxis if no colonoscopy planned for tomorrow. History of Present Illness Primary Care Provider: Manjeet Heath MD 80yo F w/ no major PMH (rarely sees doctors) who presents with anemia and cecal mass. Actually presented with chief complaint of MSK back pain on the left side. The pain began on Friday without inciting event. Goes from left shoulder to left SI joint. Has tried Tylenol, OTC lotions, and massage with only minimal improvement. Came to the ER for this. Routine labs were ordered due to her l ooking pale, and she was found to be anemic. CT a/p revealed a cecal mass concerning for malignancy. She reports no change in appetite, but does admit to weight loss from 159 lbs -> 125 lbs over the last few months. Denies any melena, hematochezia, or other GI changes. No fevers, chills, sweats, shortness of breath, or other concerns. She will get 2 units of PRBC in the ED. GI consulted for plan for colonoscopy which she is open to having done. Allergies Allergy/AdvReac Type Severity Reaction Status Date / Time No Known Allergies Allergy Unverified 04/16/21 11:26 Home Medications Medication Instructions Recorded Confirmed Type acetaminophen 500 mg tablet 1,000 mg PO Q6H PRN 04/16/21 04/16/21 History (Tylenol Extra Strength) Past Med/Surg History Medical History (Updated 04/16/21 @ 12:25 by Juancho Calabrese MD) Anemia CKD (chronic kidney disease) stage 4, GFR 15-29 ml/min Surgical History (Updated 04/16/21 @ 12:18 by Juancho Calabrese MD) H/O section Social History (Updated 04/16/21 @ 12:19 by Juancho Calabrese MD) Smoking Status: Former smoker Tobacco Type: Cigarettes Hx Alcohol Use: Yes (Occasional) Alcohol type: beer Hx Substance Use: No Feels Safe at Home: Yes Review of Systems Review of Systems: All systems reviewed & are unremarkable except as noted in HPI & below Physical Exam Constitutional: WD/WN, vitals as above Eyes: EOM intact bilaterally; no conjunctival abnormality ENMT: external ear and nose normal, oropharynx normal Neck: trachea midline, no thyromegaly normal visual inspection Respiratory: normal respiratory effort, lungs clear to auscultation no respiratory distress Cardiovascular: RRR, no murmur, no edema Gastrointestinal (Abdomen): Inspection/Auscultation: abdomen normal to inspection; abdomen not distended Musculoskeletal: no cyanosis or clubbing, extremities motor strength 5/5 Skin: no rashes, warm and dry Neurologic: moves all extremities and awake Psychiatric: Orientation: alert, oriented to person and cooperative Results & Data Results & Data ([facility]) Vital Signs (Past 12 Hours) Vital Signs Temp Pulse Pulse Resp BP BP Pulse Ox 04/16/21 12:08 36.8 C 69 14 187/65 H 97 04/16/21 10:47 94 H 20 191/86 H 98 04/16/21 10:22 97 H 22 193/81 H 96 04/16/21 09:54 96 04/16/21 09:12 36.4 C L 78 20 173/67 H 100 Code Status & VTE Plan VTE Prophylaxis Plan VTE Prophylaxis will be ordered: Yes PG Care Time/CCT Total # of Minutes Spent Total Time Spent with Patient: Total time spent is greater than 50% in coordination of care (as documented) at patient's floor/unit and/or counseling patient: Coding Level of Care Code 42443 Initial Inpt Care Lvl 3 Diagnoses Cecum mass K63.89 Anemia D64.9 Back pain M54.9 Hypertension I10 DVT prophylaxis Z29.9 CKD (chronic kidney disease) stage 4, GFR 15-29 ml/min N18.4
[2021-04-16 15:21] LABS: Appearance Urine Clear (Clear); Bilirubin Urine Negative (Negative); Blood Urine Negative (Negative); Color Urine Yellow; Glucose Urine UA Negative (Negative); Ketones Urine Negative (Negative); Leukocyte Esterase Urine Negative (Negative); Nitrite Urine Negative (Negative); Protein Urine Negative (Negative); Specific Gravity Urine 1.023 (1.000-1.030); Urobilinogen Urine Negative (Negative); pH Urine 5.5 (4.5-7.5)
[2021-04-16] MEDS ORDERED: ONDANSETRON INJ 2 MG/ML 2 ML VIAL IV PRN (16:12)
[2021-04-16] MEDS ORDERED: ACETAMINOPHEN 500 MG TAB PO PRN (16:35)
[2021-04-16] MEDS ORDERED: hydrALAZINE HCL 20 MG/ML VIAL IV PRN (16:50)
--- NOTE | 2021-04-16 17:23 | Gastrointestinal Consultation ---
Date of Consultation April 16, 2021 Assessment & Plan (1) Cecum mass: (2) Anemia: (3) Abnormal CT of the abdomen: Patient agreeable to undergo colonoscopy tomorrow Clear liquid diet Dulcolax/Miralax bowel prep tonight NPO after bowel prep Colonoscopy in the AM Transfuse PRN as per the primary team Control of HTN as per primary team History of Present Illness Reason for Consultation: Abnormal CT scan Abdomen Attending Physician: Juancho Calabrese MD History of Present Illness Jeana Carrera is a pleasant 80 yo CF who presented to the [facility] ER today with complaints of back pain. She underwent lab testing, and was noted to be profoundly anemic with an H/H of 5.9/22.8. She subsequently underwent a CT scan of the abd/pelvis, and was noted to have a probable mass in the cecum. She received 2u PRBC in transfusion. She was subsequently admitted. At the time I saw her, she states that she continues to have back pain, rated at 5/10 in intensity, chronic achy, and relieved with "pain medications." She states that she is not having any fevers, chills, nausea, vomiting, hematemesis, melena, hematochezia, dysuria, hematuria or abdominal pain. She states that she has never undergone a colonoscopy in the past. 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 Beliefs That Will Affect Care: None Current Living Situation: Significant Other Feels Safe at Home: Yes Assistive Devices: Denture - Upper and Denture - Lower Review of Systems Constitutional: as per Subjective / HPI Eyes: as per Subjective / HPI Ear, Nose, Mouth, Throat: as per Subjective / HPI Respiratory: as per Subjective / HPI Cardiovascular: as per Subjective / HPI Gastrointestinal: as per Subjective / HPI Musculoskeletal: as per Subjective / HPI Integumentary: as per Subjective / HPI Neurologic: as per Subjective / HPI Psychiatric: as per Subjective / HPI Endocrine: as per Subjective / HPI Hematologic / Lymphatic: as per Subjective / HPI Allergy / Immunological: as per Subjective / HPI Physical Exam Constitutional: WD/WN, vitals as above Eyes: + anicteric sclerae ENMT: external ear and nose normal, oropharynx normal Neck: trachea midline, no thyromegaly Respiratory: normal respiratory effort, lungs clear to auscultation Cardiovascular: RRR, no murmur, no edema Gastrointestinal (Abdomen): normal bowel sounds, soft, nontender, no hepatosplenomegaly Skin: + pallor Psychiatric: A+Ox3, euthymic affect Results & Data ([facility]) Vital Signs (Past 12 Hours) Vital Signs Temp Pulse Pulse Resp BP BP BP 04/16/21 16:39 68 216/74 H 04/16/21 16:21 36.5 C 76 18 192/77 H 04/16/21 16:12 36.5 C 76 18 192/77 H 04/16/21 15:27 37 C 65 20 205/75 H 04/16/21 15:10 36.7 C 70 18 185/71 H 04/16/21 15:06 55 L 20 176/83 H 04/16/21 14:41 36.6 C 60 22 173/71 H 04/16/21 14:40 36.6 C 60 18 176/83 H 04/16/21 14:26 36.7 C 58 L 20 148/81 H 04/16/21 14:25 36.6 C 59 L 20 177/77 H 04/16/21 14:10 36.6 C 60 20 170/75 H 04/16/21 13:44 74 20 170/67 H 04/16/21 13:43 36.6 C 60 20 170/67 H 04/16/21 13:10 36.6 C 62 18 145/71 H 04/16/21 12:40 36.9 C 67 15 185/42 H 04/16/21 12:25 36.7 C 64 20 171/81 H 04/16/21 12:08 36.8 C 69 14 187/65 H 04/16/21 10:47 94 H 20 191/86 H 04/16/21 10:22 97 H 22 193/81 H 04/16/21 09:54 04/16/21 09:12 36.4 C L 78 20 173/67 H Pulse Ox 04/16/21 16:39 04/16/21 16:21 97 04/16/21 16:12 97 04/16/21 15:27 98 04/16/21 15:10 99 04/16/21 15:06 95 04/16/21 14:41 94 04/16/21 14:40 95 04/16/21 14:26 99 04/16/21 14:25 96 04/16/21 14:10 95 04/16/21 13:44 97 04/16/21 13:43 95 04/16/21 13:10 98 04/16/21 12:40 99 04/16/21 12:25 97 04/16/21 12:08 97 04/16/21 10:47 98 04/16/21 10:22 96 04/16/21 09:54 96 04/16/21 09:12 100 PG Care Time/CCT Total # of Minutes Spent Total Time Spent with Patient: Total time spent is greater than 50% in coordination of care (as documented) at patient's floor/unit and/or counseling patient: Coding Level of Care Code 84979 Initial Inpt Care Lvl 3 Diagnoses Cecum mass K63.89 Anemia D64.9 Anemia type: unspecified type Abnormal CT of the abdomen R93.5 (1) Anemia Anemia type: unspecified type Qualified Code(s): D64.9 - Anemia, unspecified
[2021-04-16] MEDS: DICLOFENAC SOD 1% GEL 100 GM TUBE EXT SCH ×2 (17:49→20:39)
[2021-04-16] MEDS ORDERED: bisacodyL 5 MG TABEC PO ONE (18:00)
[2021-04-16] MEDS ORDERED: POLYETHYLENE (MIRALAX) 17 GM PACK PO ONE (20:00)
[2021-04-17] MEDS ORDERED: POLYETHYLENE (MIRALAX) 17 GM PACK PO ONE (02:00)
[2021-04-17 07:41] LABS: Hematocrit (blood only) 30.3 % (37-47); Hemoglobin 8.9 g/dL (12.0-16.0); Mean Corpuscular Hemoglobin 20.6 pg (25-34); Mean Corpuscular Hgb Conc 29.4 g/dL (32-36); Mean Corpuscular Volume 70.3 fL (80-100); Mean Platelet Volume 9.6 fL (7.4-10.4); Platelet Count 514 K/uL (130-400); RDW Standard Deviation 61.9 fL (36.4-46.3); Red Blood Count 4.31 M/uL (4.2-5.4); White Blood Count 8.43 K/uL (4.8-10.8)
[2021-04-17 08:13] LABS: BUN Creatinine Ratio 12.9 (10-20); Calcium 8.6 mg/dl (8.5-10.1); Creatinine Clr Calc Pharmacy 24.6 ml/min; Est GFR (Non-African American) 38.8 ml/min; Magnesium 2.2 mg/dl (1.8-2.4); Potassium 3.8 mmol/L (3.5-5.1)
--- NOTE | 2021-04-17 09:16 | History & Physical Bridge Note ---
Date of Service April 17, 2021 History & Physical Bridge Note I have examined the patient, reviewed the History & Physical and in the interval since the performance of the History & Physical I have noted the following changes of clinical significance: no changes noted proceed with colonoscopy. risks/benefits and procedure discussed with patient, who agrees to proceed
[2021-04-17] MEDS: DICLOFENAC SOD 1% GEL 100 GM TUBE EXT SCH ×3 (09:34→20:34)
--- NOTE | 2021-04-17 09:38 | Anesthesiology Consultation ---
Date of Service April 17, 2021 Assessment & Plan Chart Review Chart Review: Acceptable Risk for Surgery Consults Requested none History Surgery Operation Date: 04/17/21 16:30 Proposed Procedures p Colonoscopy Dr. Bartlett - Elias Bartlett DO Height/Weight Height: 5 ft Weight: 52.2 kg Allergies Allergy/AdvReac Type Severity Reaction Status Date / Time No Known Allergies Allergy Unverified 04/16/21 11:26 Medications Home Medications Medication Instructions Recorded Confirmed Last Taken acetaminophen 500 mg tablet 1,000 mg PO Q6H PRN 04/16/21 04/16/21 04/16/21 06:30 (Tylenol Extra Strength) 1000 mg Active Medications Generic Name Dose Route Start Last Admin Trade Name Freq PRN Reason Stop Dose Admin Diclofenac Sodium 4 gm 04/16/21 16:12 04/17/21 09:34 Diclofenac Sod 1% Gel 100 Gm Tube EXT 05/16/21 16:11 Not Given TID PARUL Hydralazine HCl 5 mg 04/16/21 16:50 04/16/21 17:49 Hydralazine Hcl 20 Mg/Ml Vial IV 05/16/21 16:49 5 mg Q4 PRN Administration hypertension Past Medical History Medical History Anemia CKD (chronic kidney disease) stage 4, GFR 15-29 ml/min Past Surgical History Surgical History H/O section Social History Smoking Status: Former smoker Hx Alcohol Use: Yes Alcohol type: beer alcohol intake frequency: a few times a month Hx Substance Use: No Physical Exam Vital Signs Last Vital Signs Temp 36.7 C 04/17/21 07:19 Pulse 68 04/17/21 07:19 Resp 17 04/17/21 07:19 BP 184/67 H 04/17/21 07:19 Pulse Ox 98 04/17/21 07:19 Testing Laboratory Results 04/17/21 07:08 04/17/21 07:08 Urine Color Yellow 04/16/21 14:10 Urine Appearance Clear (Clear) 04/16/21 14:10 Urine pH 5.5 (4.5-7.5) 04/16/21 14:10 Ur Specific [place] 1.023 (1.000-1.030) 04/16/21 14:10 Urine Protein Negative (Negative) 04/16/21 14:10 Urine Glucose (UA) Negative (Negative) 04/16/21 14:10 Urine Ketones Negative (Negative) 04/16/21 14:10 Urine Nitrite Negative (Negative) 04/16/21 14:10 Ur Leukocyte Esterase Negative (Negative) 04/16/21 14:10 Blood Type A Positive 04/16/21 10:29 Antibody Screen NEGATIVE 04/16/21 10:29
[2021-04-17] MEDS ORDERED: PROPOFOL IV EMULSION 10 MG/ML 20 ML VIAL IV ONE (09:49)
[2021-04-17] MEDS ORDERED: LIDOCAINE 2% 2 ML VIAL/AMP(20MG/ML) INFIL ONE (09:49)
[2021-04-17] MEDS ORDERED: ONDANSETRON INJ 2 MG/ML 2 ML VIAL ONE (09:49)
[2021-04-17] MEDS ORDERED: ENDOSCOPIC MARKER 5 ML SYR TOP ONE (09:50)
--- NOTE | 2021-04-17 10:42 | GI REPORT ---
Patient Name: Jeana Carrera Procedure Date: 04/17/2021 9:51 AM Date of : 1940 Admit Type: Inpatient Age: 80 Gender: Female Attending MD: Pipe Keller MD Procedure: Colonoscopy Providers: Pipe Keller MD Referring MD: Nora Doll Md Indications: Abnormal CT of the GI tract Medicines: Monitored Anesthesia Care Complications: No immediate complications. Estimated blood loss: None. Estimated Blood Loss: Estimated blood loss: none. Procedure: Pre-Anesthesia Assessment: - Prior Anticoagulants: The patient has taken no previous anticoagulant or antiplatelet agents. - ASA Grade Assessment: II - A patient with mild systemic disease. After I obtained informed consent, the scope was passed under direct vision. Throughout the procedure, the patient's blood pressure, pulse, and oxygen saturations were monitored continuously. The scope was introduced through the anus and advanced to the cecum, identified by appendiceal orifice and ileocecal valve. The colonoscopy was performed without difficulty. The patient tolerated the procedure well. The quality of the bowel preparation was fair. Findings: A fungating and infiltrative partially obstructing large mass was found in the cecum and at the ileocecal valve. No bleeding was present. Biopsies were taken with a cold forceps for histology. Estimated blood loss: none. Area was tattooed with an injection of 3 mL of Fanta ink. Non-bleeding internal hemorrhoids were found. The hemorrhoids were small. Multiple small and large-mouthed diverticula were found in the sigmoid colon and descending colon. Impression: - Preparation of the colon was fair. 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 Biopsied. Tattooed. - Non-bleeding internal hemorrhoids. - Diverticulosis in the sigmoid colon and in the descending colon. Recommendation: - Resume previous diet today. - Await pathology results. -surgical consultation for possible resection -obtain CT chest with contrast to further evaluate - Return patient to [facility] for ongoing care. Pipe Keller MD 04/17/2021 10:42:17 AM This report has been signed electronically. Note Initiated On: 04/17/2021 9:51 AM Number of Addenda: 0 I attest to the content of the Intraoperative Record and orders documented therein, exceptions below {[id number]}
--- NOTE | 2021-04-17 11:03 | Anesthesiology Progress Note ---
Date of Service April 17, 2021 Anesthesia Post Procedure Vital Signs Vital Signs: Temp Pulse Pulse Resp BP BP BP 04/17/21 10:53 86 18 151/78 H 04/17/21 10:38 97 H 18 151/78 H 04/17/21 09:34 36.8 C 69 16 170/79 H 04/17/21 07:19 36.7 C 68 17 184/67 H 04/16/21 22:29 36.6 C 66 16 153/66 H 04/16/21 16:39 68 216/74 H 04/16/21 16:21 36.5 C 76 18 192/77 H 04/16/21 16:12 36.5 C 76 18 192/77 H 04/16/21 15:27 37 C 65 20 205/75 H 04/16/21 15:10 36.7 C 70 18 185/71 H 04/16/21 15:06 55 L 20 176/83 H 04/16/21 14:41 36.6 C 60 22 173/71 H 04/16/21 14:40 36.6 C 60 18 176/83 H 04/16/21 14:26 36.7 C 58 L 20 148/81 H 04/16/21 14:25 36.6 C 59 L 20 177/77 H 04/16/21 14:10 36.6 C 60 20 170/75 H 04/16/21 13:44 74 20 170/67 H 04/16/21 13:43 36.6 C 60 20 170/67 H 04/16/21 13:10 36.6 C 62 18 145/71 H 04/16/21 12:40 36.9 C 67 15 185/42 H 04/16/21 12:25 36.7 C 64 20 171/81 H 04/16/21 12:08 36.8 C 69 14 187/65 H Pulse Ox 04/17/21 10:53 98 04/17/21 10:38 98 04/17/21 09:34 100 04/17/21 07:19 98 04/16/21 22:29 97 04/16/21 16:39 04/16/21 16:21 97 04/16/21 16:12 97 04/16/21 15:27 98 04/16/21 15:10 99 04/16/21 15:06 95 04/16/21 14:41 94 04/16/21 14:40 95 04/16/21 14:26 99 04/16/21 14:25 96 04/16/21 14:10 95 04/16/21 13:44 97 04/16/21 13:43 95 04/16/21 13:10 98 04/16/21 12:40 99 04/16/21 12:25 97 04/16/21 12:08 97 Pain Intensity Back: Pain Intensity: 3 Transfer of Care Handoff Completed per policy Notes Mental Status: alert / awake / arousable and participated in evaluation Patient Amnestic to Procedure: Yes Nausea / Vomiting: adequately controlled Pain: adequately controlled Airway Patency, RR, SpO2: stable & adequate BP & HR: stable & adequate Hydration State: stable & adequate Anesthetic Complications: no major complications apparent
[2021-04-17] MEDS: BACLOFEN 10 MG TAB PO PRN (11:37)
[2021-04-17] MEDS ORDERED: IRON SUCROSE 300 MG in SODIUM CHLORIDE 0.9% 250 ML IV ONE (12:30)
[2021-04-17] MEDS ORDERED: OPTIRAY 320 100ml IV ONE (13:25)
--- NOTE | 2021-04-17 14:20 | Hospitalist Progress Note ---
Date of Service April 17, 2021 Assessment & Plan (1) Anemia: Plan: Presented with Hgb of 5.9 in the ED. Microcytic. No overt melena or hematochezia; this likely represents chronic bleed from cancer and iron deficiency. Hemoglobin 3 years ago was also low at 8.9 during an ER visit for back pain and cough, but she never followed up with a primary care physician at that time she has not seen a doctor in for 5 years Received 2 units of PRBCs overnight and hemoglobin has improved to 8.9 today -Give IV Venofer 300 mg x 1 now -Follow CBC in the morning -Management of cecal mass as below (2) Cecum mass: Plan: Concerning for cancer on imaging and on colonoscopy Mass is partially obstructing but not a complete obstruction, she is moving her bowels regularly and has no abdominal pain Appreciate GI consultation-colonoscopy showed a fungating and infiltrative partially obstructing large mass in the cecum and at the ileocecal valve without bleeding. Biopsies were taken and are pending -Obtain chest CT to look for metastases-this is negative -Advance to regular diet as patient is undecided about whether she wants to have surgical resection of this mass -Consult general surgery appreciated-patient would like to discuss with her children and get back to us on whether or not she would like a surgical resection Will check preoperative ECG. She does have chronic kidney disease and I auscultated a right carotid bruit on examination but no heart murmur. She can achieve at least 4 METS prior to admission. She does not have diabetes but does have untreated hypertension Overall, she is likely average perioperative risk for cardiovascular morbidity and mortality as long as carotid Doppler without significant stenosis and ECG without obvious abnormality. She should proceed with surgery as planned if she chooses to. (3) Back pain: Plan: Chief complaint. Almost certainly MSK as she has clear tenderness to palpation along the left-side of her back. No spinal tenderness or pain. CT chest negative Possibly related just to severe anemia-is improving now after transfusion and muscle relaxers as well as Voltaren gel - Tylenol PRN - Voltaren gel TID along left back - Baclofen TID PRN (4) CKD (chronic kidney disease) stage 4, GFR 15-29 ml/min: Plan: Cr was 1.29 on admission and stable now. Last Cr was 1.2 in 2018. I suspect CKD stage III-IV rather than acute kidney injury. Appears euvolemic on exam. -Avoid nephrotoxins -renally dose meds when appropriate -follow BMP (5) Hypertension: Plan: Blood pressures are consistently high now and on previous ER visit from several years ago She has not followed by a physician routinely She is agreeable to starting treatment for hypertension Given that she is with elevation in creatinine and at risk for dehydration with upcoming possible surgery and/or chemotherapy, will start metoprolol 12.5 mg p.o. twice daily and titrate upwards as needed (6) Carotid bruit: Plan: Right side Check carotid ultrasound (7) Thrombocytosis: Plan: Platelets are elevated in the 600s on admission now improved in the 500s This is certainly a reactive thrombocytosis to severe anemia (8) DVT prophylaxis: Plan: SCDs, no chemical anticoagulation due to likely GI bleeding Disposition-continued stay Admission and Anticipated Discharge Date Admission Date: April 16, 2021 Subjective Patient just returned for colonoscopy. She knows that she has a mass in her cecum that was biopsied and is waiting to see if it is cancer. She denies any abdominal pain. The left sided back pain she was having stretched from her left shoulder all the way down to her lower back and felt like spasms coming and going. It is improved somewhat today with muscle relaxers. She received 2 units of PRBCs yesterday and her blood count is up. We discussed options for surgical resection of her tumor versus oncology follow- up with just chemotherapy if it does indeed nocturnist to be a cancer. She reports that typically she can go up and down flight of stairs and walk around her house without any chest pain. She does get some shortness of breath with walking up hills. She has never had any cardiac issues. She has been told in the past that she had high blood pressure but is not on medication. She has never smoked. She reports last time she went to her doctor was about 4-5 years ago. I discussed her care with the surgery PA Review of Systems Review of Systems: All systems reviewed & are unremarkable except as noted in HPI & below Physical Exam Constitutional: WD/WN, vitals as above Eyes: + anicteric sclerae Neck: trachea midline, no thyromegaly Respiratory: normal respiratory effort, lungs clear to auscultation Cardiovascular: RRR, no murmur, no edema Chest (Breasts): Chest: normal inspection of chest Gastrointestinal (Abdomen): normal bowel sounds, soft, nontender, no hepatosplenomegaly Musculoskeletal: Extremities: extremities normal to inspection; no cyanosis and no clubbing Positive tenderness palpation over left paraspinous muscles up and down the spine Skin: no rashes, warm and dry Neurologic: moves all extremities and awake; no focal motor deficits Psychiatric: A+Ox3, euthymic affect Lymphatic: no lymphedema Results & Data Results & Data ([facility]) Vital Signs (Past 12 Hours) Vital Signs Temp Pulse Resp BP BP Pulse Ox 04/17/21 12:30 36.7 C 82 17 178/61 H 100 04/17/21 11:29 36.7 C 70 16 182/81 H 100 04/17/21 11:08 84 18 172/75 H 98 04/17/21 10:53 86 18 151/78 H 98 04/17/21 10:38 97 H 18 151/78 H 98 04/17/21 09:34 36.8 C 69 16 170/79 H 100 04/17/21 07:19 36.7 C 68 17 184/67 H 98 Laboratory Results 04/17/21 04/17/21 Range/Units 07:08 07:08 WBC 8.43 (4.8-10.8) K/uL RBC 4.31 (4.2-5.4) M/uL Hgb 8.9 L D (12.0-16.0) g/dL Hct 30.3 L (37-47) % MCV 70.3 L D (80-100) fL MCH 20.6 L (25-34) pg MCHC 29.4 L (32-36) g/dL RDW Std Deviation 61.9 H (36.4-46.3) fL RDW Coeff of Stevie 24.0 H (11.5-14.5) % Plt Count 514 H (130-400) K/uL MPV 9.6 (7.4-10.4) fL Sodium 141 (136-145) mmol/L Potassium 3.8 (3.5-5.1) mmol/L Chloride 111 H (98-107) mmol/L Carbon Dioxide 21 (21-32) mmol/L Anion Gap 9.0 (3-11) BUN 17 (7-18) mg/dl Creatinine 1.29 H (0.6-1.2) mg/dl Est Cr Clr Drug Dosing 24.6 ml/min Est GFR ( Amer) 45.0 ml/min Est GFR (Non-Af Amer) 38.8 ml/min BUN/Creatinine Ratio 12.9 (10-20) Glucose 87 (70-99) mg/dl Calcium 8.6 (8.5-10.1) mg/dl Magnesium 2.2 (1.8-2.4) mg/dl PG Care Time/CCT Total # of Minutes Spent Total Time Spent with Patient: Total time spent is greater than 50% in coordination of care (as documented) at patient's floor/unit and/or counseling patient: Coding Level of Care Code 52026 Subseq Hosp Care Lvl 3 Diagnoses Anemia D64.9 Anemia type: unspecified type Cecum mass K63.89 Back pain M54.5 Back pain laterality: unspecified Back pain location: low back pain Chronicity: acute Sciatica presence: unspecified whether sciatica present CKD (chronic kidney disease) stage 4, GFR 15-29 ml/min N18.4 Hypertension I10 Hypertension type: unspecified DVT prophylaxis Z29.9 Carotid bruit R09.89 Thrombocytosis D47.3 (1) Anemia Anemia type: unspecified type Qualified Code(s): D64.9 - Anemia, unspecified (2) Back pain Back pain laterality: unspecified Back pain location: low back pain Chronicity: acute Sciatica presence: unspecified whether sciatica present Qualified Code(s): M54.5 - Low back pain (3) Hypertension Hypertension type: unspecified Qualified Code(s): I10 - Essential (primary) hypertension
--- NOTE | 2021-04-17 14:22 | CT Scan Report ---
CT OF THE CHEST WITH IV CONTRAST CLINICAL HISTORY: suspected colon CA,CT chest for staging COMPARISON STUDY: Chest CT January 03, 2018. Chest radiograph April 16, 2021. TECHNIQUE: Following IV administration of 94 mL of Optiray, helical axial images of the chest were o btained. Sagittal and coronal reconstructions were viewed as well as maximal intensity projections o n an independent 3-D workstation. Automated exposure control was utilized for the study. A dose low ering technique was utilized adhering to the principles of ALARA. CT DOSE: 204.31 mGycm FINDINGS: No enlarged axillary, mediastinal or hilar lymph nodes are present. Moderate cardiomegaly is noted. There is no pericardial effusion. There is no pneumothorax or pleural effusion. Linear opac ities within the lungs favor atelectasis. There is no suspicious pulmonary nodule. There is no consol idation to suggest pneumonia. No suspicious lesions are identified within visualized portions of the bony thorax. Visualized portions of the upper abdomen are unremarkable. IMPRESSION: No evidence of metastatic disease within the chest. ACT 112: Negative or not required by law. Electronically signed by: Carlos Linn M.D. 04/17/2021 2:21 PM
--- NOTE | 2021-04-17 15:40 | Ultrasound Report ---
US carotid doppler BI CLINICAL HISTORY: 80 years-old Female with right carotid bruit. COMPARISON: None TECHNIQUE: Multiple real time sonographic images of the carotid bifurcations were obtained assessing sung scale, color Doppler and spectral wave form appearance FINDINGS: RIGHT CAROTID: The peak systolic velocity measured within the right ICA is83 cm/sec. The end diasto lic velocity measured 21 cm/sec. The ICA to CCA ratio measured 1.2 which correlates with a stenosis of 0-50%. Mild atherosclerotic plaque of the right carotid bulb. LEFT CAROTID: The peak systolic velocity measured within the left ICA is114 cm/sec. The end diastol ic velocity measured 37 cm/sec. The ICA to CCA ratio measured 1.6 which correlates with a stenosis of 0-50%. Mild atherosclerotic plaque of the left carotid bulb. There is normal antegrade vertebral flow bilaterally. IMPRESSION: 1. Mild atherosclerotic plaque of the carotid bulbs without hemodynamically significant stenosis. 2. Normal antegrade vertebral flow bilaterally. ACT 112: Negative or not required by law. The above report was generated using voice recognition software. It may contain grammatical, syntax o r spelling errors. Electronically signed by: Timo Maguire M.D. 04/17/2021 3:38 PM
--- NOTE | 2021-04-17 16:17 | Surgery Consultation ---
Date of Consultation April 17, 2021 Assessment & Plan (1) Cecum mass: 80 year-old female who presented to ED for left back pain found to be anemic with hgb of [address] scan of abdomen and pelvis showing cecal mass. 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 Biopsies obtained. CT of chest showing no evidence of metastatic disease. She is not having any abdominal pain. Plan: Patient is unsure what she would want in regards to surgical intervention and does want surgical intervention tomorrow. Discussed options of surgical resection, no surgical intervention, and oncology evaluation for possible chemo and/or radiation. Will discuss with patient tomorrow further about options as she needs some time to think about everything continue reg diet continue medical management (2) Anemia: likely secondary to colonic mass s/p transfusion Dr. baltazar has seen and discussed above with patient History of Present Illness Reason for Consultation: Cecal mass Requesting Physician: Nora Doll MD Attending Physician: Nora Doll MD History of Present Illness Jeana is a 80 year-old female who presented to emergency department yesterday with complaint of left sided back pain. She looked pale upon ED evaluation and labs and ct scan were ordered which showed hemoglobin of 5 and a cecal mass respectively. She did not present to the emergency department due to abdominal pain. Lost about 20 pounds in last few months. Never had prior colonoscopy. She underwent colonoscopy today which showed a fungating partially obstructing mass in the cecum and ileocecal valve. No active bleeding. Biopsies were obtained. Our services consulted for possible resection. Allergies Allergy/AdvReac Type Severity Reaction Status Date / Time No Known Allergies Allergy Verified 04/17/21 09:54 Home Medications Medication Instructions Recorded Confirmed Type acetaminophen 500 mg tablet 1,000 mg PO Q6H PRN 04/16/21 04/16/21 History (Tylenol Extra Strength) Patient History Medical History (Updated 04/17/21 @ 14:21 by Nora Doll MD) Anemia Carotid bruit CKD (chronic kidney disease) stage 4, GFR 15-29 ml/min Surgical History H/O section Social History Smoking Status: Former smoker Tobacco Type: Cigarettes Hx Alcohol Use: Yes Alcohol type: beer Hx Substance Use: No Preferred Language: Spanish Communication Ability: Effective Adobe Cq Developer Required: No Beliefs That Will Affect Care: None Current Living Situation: Significant Other Feels Safe at Home: Yes Assistive Devices: None Physical Exam Constitutional: WD/WN, vitals as above no acute distress and not ill appearing Respiratory: normal respiratory effort; no respiratory distress, no labored breathing and no retractions Skin: no rashes, warm and dry Psychiatric: Orientation: alert and oriented x 3 Results & Data ([facility]) Vital Signs (Past 12 Hours) Vital Signs Temp Pulse Resp BP BP Pulse Ox 04/17/21 15:30 37.2 C 95 H 17 169/73 H 97 04/17/21 12:30 36.7 C 82 17 178/61 H 100 04/17/21 11:29 36.7 C 70 16 182/81 H 100 04/17/21 11:08 84 18 172/75 H 98 04/17/21 10:53 86 18 151/78 H 98 04/17/21 10:38 97 H 18 151/78 H 98 04/17/21 09:34 36.8 C 69 16 170/79 H 100 04/17/21 07:19 36.7 C 68 17 184/67 H 98 Laboratory Results 04/17/21 04/17/21 Range/Units 07:08 07:08 WBC 8.43 (4.8-10.8) K/uL RBC 4.31 (4.2-5.4) M/uL Hgb 8.9 L D (12.0-16.0) g/dL Hct 30.3 L (37-47) % MCV 70.3 L D (80-100) fL MCH 20.6 L (25-34) pg MCHC 29.4 L (32-36) g/dL RDW Std Deviation 61.9 H (36.4-46.3) fL RDW Coeff of Stevie 24.0 H (11.5-14.5) % Plt Count 514 H (130-400) K/uL MPV 9.6 (7.4-10.4) fL Sodium 141 (136-145) mmol/L Potassium 3.8 (3.5-5.1) mmol/L Chloride 111 H (98-107) mmol/L Carbon Dioxide 21 (21-32) mmol/L Anion Gap 9.0 (3-11) BUN 17 (7-18) mg/dl Creatinine 1.29 H (0.6-1.2) mg/dl Est Cr Clr Drug Dosing 24.6 ml/min Est GFR ( Amer) 45.0 ml/min Est GFR (Non-Af Amer) 38.8 ml/min BUN/Creatinine Ratio 12.9 (10-20) Glucose 87 (70-99) mg/dl Calcium 8.6 (8.5-10.1) mg/dl Magnesium 2.2 (1.8-2.4) mg/dl Diagnostic Findings ABDOMEN AND PELVIS CT WITH IV CONTRAST CT DOSE: 333.29 mGycm HISTORY: Acute low back pain and lower abdominal discomfort back pain lower hgb TECHNIQUE: Multiaxial CT images of the abdomen and pelvis were performed following the IV administration of 95 cc of Optiray, A dose lowering technique was utilized adhering to the principles of ALARA. COMPARISON STUDY: CT lumbar spine of same day FINDINGS: Moderate cardiomegaly. Mild bibasilar atelectasis/scarring. No pneumatosis or pneumoperitoneum. The spleen, pancreas and adrenal glands are unremarkable. Mild gallbladder distention. Unremarkable liver. Patency of the hepatic and portal veins. Bilateral renal sinus cysts. Cortical thinning of the kidneys. 2 mm nonobstructing calculus of the interpolar right kidney. No ureteral calculi or hydronephrosis. Pelvic floor relaxation with small cystocele. Mild urinary bladder wall thickening. Small fat filled left inguinal hernia. The fundal endometrium measures the upper limits of normal at 5 mm. The fundal uterus is heterogeneous. No adnexal mass lesion. Moderate atherosclerosis of the aorta without aneurysm. Unremarkable IVC. No adenopathy. No paravertebral edema or retroperitoneal hematoma identified. No bowel obstruction. Colonic diverticulosis. Masslike thickening within the base of the cecum measures 4.6 x 3.2 x 3.7 cm. There are a few adjacent lymph nodes within the right lower quadrant mesentery measuring up to 6 mm. The appendix measures the upper limits of normal at 6 mm and is fluid-filled. Trace periappendiceal stranding. Unremarkable soft tissues. Degenerative changes of the spine, pelvis and hips. Mild sigmoidal scoliosis of the lumbar spine. No suspicious bone lesions. IMPRESSION: 1. Masslike thickening at the base of the cecum measuring up to 4.6 cm is suspicious for a possible mucosal neoplasm. Correlation with colonoscopy recommended. No associated bowel obstruction. 2. The appendix measures in the upper limits of normal at 6 mm and is fluid- filled with trace periappendiceal stranding. The previously described abnormality of the cecum may partially obstruct the appendix. Correlate with clinical exam findings and laboratory analysis to exclude acute appendicitis. 3. Nonenlarged lymph nodes of the right lower quadrant mesentery, equivocal for lymphatic metastasis. 4. Nonobstructing right nephrolithiasis. 5. Additional findings as above. CT OF THE CHEST WITH IV CONTRAST CLINICAL HISTORY: suspected colon CA,CT chest for staging COMPARISON STUDY: Chest CT January 03, 2018. Chest radiograph April 16, 2021. TECHNIQUE: Following IV administration of 94 mL of Optiray, helical axial images of the chest were obtained. Sagittal and coronal reconstructions were viewed as well as maximal intensity projections on an independent 3-D workstation. Automated exposure control was utilized for the study. A dose lowering technique was utilized adhering to the principles of ALARA. CT DOSE: 204.31 mGycm FINDINGS: No enlarged axillary, mediastinal or hilar lymph nodes are present. Moderate cardiomegaly is noted. There is no pericardial effusion. There is no pneumothorax or pleural effusion. Linear opacities within the lungs favor atelectasis. There is no suspicious pulmonary nodule. There is no consolidation to suggest pneumonia. No suspicious lesions are identified within visualized portions of the bony thorax. Visualized portions of the upper abdomen are unremarkable. IMPRESSION: No evidence of metastatic disease within the chest. (1) Anemia Anemia type: unspecified type Qualified Code(s): D64.9 - Anemia, unspecified
[2021-04-17] MEDS: METOPROLOL TARTRATE 25 MG TAB PO SCH ×2 (16:39→20:33)
[2021-04-18] MEDS: DICLOFENAC SOD 1% GEL 100 GM TUBE EXT SCH ×2 (07:50→15:43)
[2021-04-18] MEDS: METOPROLOL TARTRATE 25 MG TAB PO SCH (07:50)
[2021-04-18 08:00] LABS: Hematocrit (blood only) 31.9 % (37-47); Mean Corpuscular Hemoglobin 20.3 pg (25-34); Mean Corpuscular Hgb Conc 28.2 g/dL (32-36); Mean Corpuscular Volume 71.8 fL (80-100); Mean Platelet Volume 9.5 fL (7.4-10.4); Platelet Count 490 K/uL (130-400); RDW Coefficient of Variation 24.9 % (11.5-14.5); RDW Standard Deviation 64.9 fL (36.4-46.3); Red Blood Count 4.44 M/uL (4.2-5.4); White Blood Count 6.79 K/uL (4.8-10.8)
[2021-04-18 08:12] LABS: Anisocytosis Present; Basophils # (auto) 0.02 K/uL (0-0.2); Basophils % (auto) 0.3 %; Eosinophils # (auto) 0.22 K/uL (0-0.5); Eosinophils % (auto) 3.2 %; Hypochromasia Present; Immature Granulocytes # (auto) 0.02 K/uL (0.00-0.02); Immature Granulocytes % (auto) 0.3 %; Lymphocytes # (auto) 1.62 K/uL (1.2-3.4); Lymphocytes % (auto) 23.9 %; Microcytosis Present; Monocytes # (auto) 0.49 K/uL (0.11-0.59); Monocytes % (auto) 7.2 %; Neutrophils # (auto) 4.42 K/uL (1.4-6.5); Neutrophils % (auto) 65.1 %
[2021-04-18 08:29] LABS: BUN Creatinine Ratio 11.8 (10-20); Calcium 8.4 mg/dl (8.5-10.1); Creatinine Clr Calc Pharmacy 22.5 ml/min; Est GFR (African American) 40.4 ml/min; Est GFR (Non-African American) 34.8 ml/min; Potassium 3.4 mmol/L (3.5-5.1)
[2021-04-18] MEDS: BACLOFEN 10 MG TAB PO PRN (08:32)
[2021-04-18] MEDS ORDERED: POTASSIUM CHLORIDE CRTAB 20 MEQ TABCR PO STA (10:41)
[2021-04-18] MEDS ORDERED: METOPROLOL TARTRATE 25 MG TAB PO ONE (10:42)
[2021-04-18] MEDS ORDERED: IRON SUCROSE 300 MG in SODIUM CHLORIDE 0.9% 250 ML IV ONE (11:30)
--- NOTE | 2021-04-18 16:08 | XCELERA ---
[id number] \\[id number]
--- NOTE | 2021-04-18 16:38 | Surgery Consultation ---
Date of Consultation April 18, 2021 Assessment & Plan (1) Cecum mass: She has been back on regular diet. She also prefers to home and coordinate timing of surgery with her family. As long as H&H remains stable, she can be discharged and scheduled as an outpatient as early as next week or soon thereafter within the next few weeks. Supervising Physician Co-Signing Physician Notes Patient seen and examined, labs and imaging reviewed, agree with above. 80 y/o female presented with back pain, and noted to be anemic. CT with cecal mass and no mets, colonoscopy with fungating mass in cecum and ic valve, path pending. On exam afvss, nad, aaox3. abd soft, nt, nd. hct stable after transfusion, CT personally reviewed and agree with cecal mass and no e/o mets, though some enlarged lymph nodes. Recommend laparoscopic assisted right hemicolectomy, offered as inpatient or outpatient, patient elects for outpatient surgery. CEA pending, follow up in clinic to schedule. History of Present Illness Attending Physician: Nora Doll MD History of Present Illness 80 y/o female came to the ED for back pain, was found to be anemic and admitted for evaluation. H&H has been stable after 2 units PRBCs, colonoscopy shows cecal mass, no active bleeding. She requested second opinion for laparoscopic resection. Allergies Allergy/AdvReac Type Severity Reaction Status Date / Time No Known Allergies Allergy Verified 04/17/21 09:54 Home Medications Medication Instructions Recorded Confirmed Type acetaminophen 500 mg tablet 1,000 mg PO Q6H PRN 04/16/21 04/16/21 History (Tylenol Extra Strength) Patient History Medical History Anemia Carotid bruit CKD (chronic kidney disease) stage 4, GFR 15-29 ml/min Surgical History H/O section Social History Smoking Status: Former smoker Tobacco Type: Cigarettes Hx Alcohol Use: Yes Alcohol type: beer Hx Substance Use: No Preferred Language: Hebrew Communication Ability: Effective Squaring Shear Operator Required: No Beliefs That Will Affect Care: None Current Living Situation: Significant Other Feels Safe at Home: Yes Assistive Devices: None Review of Systems Constitutional: no fatigue, no malaise, no weakness and no weight loss Gastrointestinal: no abdominal pain, no nausea, no blood in stools and no melena Physical Exam Constitutional: WD/WN, vitals as above Respiratory: normal respiratory effort, lungs clear to auscultation Cardiovascular: RRR, no murmur, no edema Gastrointestinal (Abdomen): Inspection/Auscultation: + abdominal surgical scar; abdomen not distended Percussion/Palpation: abdomen soft; abdomen nontender Results & Data ([facility]) Vital Signs (Past 12 Hours) Vital Signs Temp Pulse Resp BP Pulse Ox 04/18/21 16:16 37.0 C 56 L 16 161/62 H 97 04/18/21 07:25 36.8 C 53 L 16 170/65 H 97 PG Care Time/CCT Total # of Minutes Spent Total Time Spent with Patient: Total time spent is greater than 50% in coordination of care (as documented) at patient's floor/unit and/or counseling patient: Coding Level of Care Code 01571 Initial Inpt Care Lvl 1 Diagnoses Cecum mass K63.89
--- NOTE | 2021-04-18 17:11 | Discharge Summary ---
Date of Service April 18, 2021 Admission HPI Per Admitting Provider 80yo F w/ no major PMH (rarely sees doctors) who presents with anemia and cecal mass. Actually presented with chief complaint of MSK back pain on the left side. The pain began on Friday without inciting event. Goes from left shoulder to left SI joint. Has tried Tylenol, OTC lotions, and massage with only minimal improvement. Came to the ER for this. Routine labs were ordered due to her looking pale, and she was found to be anemic. CT a/p revealed a cecal mass concerning for malignancy. She reports no change in appetite, but does admit to weight loss from 159 lbs -> 125 lbs over the last few months. Denies any melena, hematochezia, or other GI changes. No fevers, chills, sweats, shortness of breath, or other concerns. She will get 2 units of PRBC in the ED. GI consulted for plan for colonoscopy which she is open to having done. Principal Diagnosis Severe anemia, Cecal mass, Left sided MSK back pain, HTN Discharge Exam Constitutional WD/WN, vitals as above Eyes + anicteric sclerae Neck trachea midline, no thyromegaly Respiratory normal respiratory effort, lungs clear to auscultation Cardiovascular RRR, no murmur, no edema Chest (Breasts) Chest: normal inspection of chest Gastrointestinal (Abdomen) normal bowel sounds, soft, nontender, no hepatosplenomegaly Musculoskeletal Extremities: extremities normal to inspection; no cyanosis and no clubbing Skin no rashes, warm and dry Neurologic moves all extremities and awake; no focal motor deficits Psychiatric A+Ox3, euthymic affect Lymphatic no lymphedema Discharge Data Allergies Allergy/AdvReac Type Severity Reaction Status Date / Time No Known Allergies Allergy Verified 04/17/21 09:54 Consultations 04/16/21 11:22 ED Decision to Admit Stat 04/16/21 12:14 Consult Gastroenterology Routine 04/17/21 11:57 Consult General Surgery Routine 04/18/21 14:17 Consult General Surgery Routine Procedures Performed Operation Date: 04/17/21 16:30 Actual Procedures p Colonoscopy Biopsy Cytology - Pipe Keller MD Ordered Studies 04/16/21 09:30 CT lumbar spine wo con Stat 04/16/21 10:02 CT abd pelvis IV con only Stat 04/17/21 12:00 CT chest diagnostic w con Routine 04/17/21 15:00 US carotid doppler BI Urgent Hospital Course (1) Anemia: Presented with Hgb of 5.9 in the ED. Microcytic. No overt melena or hematochezia; this likely represents chronic bleed from cancer and iron deficiency. Hemoglobin 3 years ago was also low at 8.9 during an ER visit for back pain and cough, but she never followed up with a primary care physician at that time she has not seen a doctor in for 5 years Received 2 units of PRBCs as well as 2 doses of IV Venofer 300mg--> hemoglobin has improved to 9.0 today and stable -continue FeSO4 325mg po bid and docusate 100mg po bid on discharge -Follow CBC as outpt with PCP -Management of cecal mass as below (2) Cecum mass: Concerning for cancer on imaging and on colonoscopy Mass is partially obstructing but not a complete obstruction, she is moving her bowels regularly and has no abdominal pain Appreciate GI consultation-colonoscopy showed a fungating and infiltrative partially obstructing large mass in the cecum and at the ileocecal valve without bleeding. 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 She does have chronic kidney disease and I auscultated a right carotid bruit on examination a heart murmur. ECHO without WMAs and with preserved EF, mild increased RVSP Carotid DOppler negative She can achieve at least 4 METS prior to admission. She does not have diabetes but does have untreated hypertension which is being managed Overall, she is average perioperative risk for cardiovascular morbidity and mortality. She should proceed with surgery as planned if she chooses to. Check CEA-pending at time of discharge Discharge to home with close outpt f/u with GI, Surgery, PCP (3) Back pain: Chief complaint. Almost certainly MSK as she has clear tenderness to palpation along the left-side of her back. No spinal tenderness or pain. CT chest negative Possibly related just to severe anemia-is improving now after transfusion and muscle relaxers as well as Voltaren gel - Tylenol PRN - Voltaren gel TID along left back - Baclofen TID PRN (4) CKD (chronic kidney disease) stage 4, GFR 15-29 ml/min: Cr was 1.29 on admission and now 1.4. Last Cr was 1.2 in 2018. I suspect CKD stage III-IV rather than acute kidney injury. Appears euvolemic on exam. -Avoid nephrotoxins -renally dose meds when appropriate -follow BMP as outpt (5) Hypertension: Blood pressures are consistently high now and on previous ER visit from several years ago She has not followed by a physician routinely She is agreeable to starting treatment for hypertension Given that she is with elevation in creatinine and at risk for dehydration with upcoming possible surgery and/or chemotherapy, will start metoprolol 25 mg p.o. twice daily and titrate upwards as needed Follow up with PCP (6) Carotid bruit: Right side carotid ultrasound normal (7) Thrombocytosis: Platelets are elevated in the 600s on admission now improved in the 400s after PRBC transfusion This is certainly a reactive thrombocytosis to severe anemia (8) DVT prophylaxis: SCDs, no chemical anticoagulation due to likely GI bleeding Disposition-dc to home Total Time Total Time Spent Total Time Spent (In Minutes): 45 min Discharge Plan Discharge Items Patient Disposition: Home - Self-Care Reason For Visit: ANEMIA, CECAL MASS Discharge Diagnosis: Anemia, colon mass, Left sided back pain, Hypertension Condition on Discharge: Good Activity: As commented below Lifting: Gradually increase as tolerated Bathing: No limitations Exercise/Sports: Gradually increase as tolerated Weightbearing: Full weightbearing Non-emergency contact: Primary Care Provider, Surgeon and Guest Services Coordinator Call non-emergency contact if: you have any medication questions and your symptoms worsen Follow-up/Referrals: Uriah Heath MD [Primary Care Provider] - (Please follow up within 1-2 weeks for your hospitalization) Ronal Corbin DO, RAMON [Physician] - (If you decide to have surgery next week please call to be seen Friday or Friday, otherwise call to make an appointment in the next 1-2 weeks) Pipe Keller MD [Physician] - (Please follow up within 1 week to review your biopsy results from your colonoscopy) Diet: Heart Healthy Addtl Attending Provider Instructions: You were admitted for a finding of a severely low red blood count/anemia. You were given a blood transfusion and 2 IV iron transfusions. Your blood count improved, but is not yet back to normal. Please continue taking iron pills twice a day along with a stool softener to prevent constipation. You were found to have a large mass in your colon on colonoscopy and on a CT scan. A biopsy was taken and is still pending to see if this is cancerous or not. You were seen by the Surgeon and should call his office if you decide to schedule a colon surgery to remove the mass. You should follow up with the GI doctor within 1 week to review the results of your biopsy. You were also found to have very elevated blood pressures and were started on a blood pressure medication called metoprolol. Follow up with Dr. Heath within 1-2 weeks. Pending Studies at Discharge: Yes Stand-Alone Forms: My [facility] Medications and DC Order Prescriptions: New baclofen 5 mg tablet 5 mg PO Q8H PRN (Reason: muscle spasm) Qty: 20 RF: 0 metoprolol tartrate 25 mg Tablet 25 mg PO BID Qty: 60 RF: 0 diclofenac sodium [Voltaren Arthritis Pain] 1 % Gel 4 g EXT TID PRN (Reason: back pain) Qty: 100 RF: 0 ferrous sulfate 325 mg (65 mg iron) tablet 325 mg PO BID Qty: 60 RF: 0 docusate sodium 100 mg capsule 100 mg PO BID Qty: 60 RF: 0 Continued acetaminophen [Tylenol Extra Strength] 500 mg Tablet 1,000 mg PO Q6H PRN (Reason: Pain) RF: 0 Discharge Orders: Discharge Order (Routine); Ordered 04/18/21 Ordered By: Nora Doll Admission Data Admit Date/Time: 04/16/21 12:14 Attending Provider: Nora Doll Admit Provider: Juancho Calabrese Primary Care Provider: Uriah Heath Other Providers: Elias Bartlett ; Juancho Calabrese ; Ariel Metz ; Ronal Corbin Other Interventions: Discharge Summary Assessment (RN) Last Done: 04/17/21 10:53 Coding Level of Care Code D/C DAY MANAGEMENT >30 MINS Diagnoses Anemia D64.9 Anemia type: unspecified type Cecum mass K63.89 Back pain M54.5 Back pain laterality: unspecified Back pain location: low back pain Chronicity: acute Sciatica presence: unspecified whether sciatica present CKD (chronic kidney disease) stage 4, GFR 15-29 ml/min N18.4 Hypertension I10 Hypertension type: unspecified Carotid bruit R09.89 Thrombocytosis D47.3 DVT prophylaxis Z29.9
[2021-04-18] MEDS ORDERED: METOPROLOL TARTRATE 25 MG TAB PO SCH (21:00)
--- NOTE | 2021-04-20 16:48 | Electrocardiogram Report ---
Test Reason : Blood Pressure : / mmHG Vent. Rate : 063 BPM Atrial Rate : 063 BPM P-R Int : 242 ms QRS Dur : 078 ms QT Int : 412 ms P-R-T Axes : 058 -20 029 degrees QTc Int : 421 ms Sinus rhythm with 1st degree A-V block Moderate voltage criteria for LVH, may be normal variant Inferior infarct , age undetermined Abnormal ECG When compared with ECG of 03-JAN-2018 11:36, [place] interval has increased Inferior infarct is now Present Confirmed by Zachery Maddox ([id number]) on 04/20/2021 4:47:41 PM Referred By: Uriah Heath Confirmed By:Zachery Maddox
== END 2021-04-18 18:30 | disposition home or self-care (01) ==
LOC: ED 09:07 → INTOOBSV 12:14 → SUATTDRO 12:14 → 3N 12:14

== ENCOUNTER 2021-11-04 12:49 | Inpatient (IN) ==
[2021-11-04] MEDS ORDERED: SODIUM CHLORIDE 0.9% 1000ML 1,000 ML IV ONE (13:00)
[2021-11-04] MEDS ORDERED: ACETAMINOPHEN 1,000 MG/100 ML VIAL IV STA (13:00)
[2021-11-04 13:29] LABS: Appearance Urine Clear (Clear); Bacteria Urine Automated 1+ (Negative); Bilirubin Urine Negative (Negative); Blood Urine Negative (Negative); Color Urine Yellow; Eosinophils # (auto) 0.01 K/uL (0-0.5); Eosinophils % (auto) 0.1 %; Glucose Urine UA Negative (Negative); Hematocrit (blood only) 43.7 % (37-47); Hemoglobin 14.5 g/dL (12.0-16.0); Immature Granulocytes # (auto) 0.03 K/uL (0.00-0.02); Immature Granulocytes % (auto) 0.3 %; Ketones Urine Trace (Negative); Leukocyte Esterase Urine 2+ (Negative); Lymphocytes # (auto) 1.21 K/uL (1.2-3.4); Lymphocytes % (auto) 13.1 %; Mean Corpuscular Hemoglobin 30.1 pg (25-34); Mean Corpuscular Hgb Conc 33.2 g/dL (32-36); Mean Corpuscular Volume 90.7 fL (80-100); Mean Platelet Volume 11.3 fL (7.4-10.4); Monocytes % (auto) 5.4 %; Neutrophils # (auto) 7.52 K/uL (1.4-6.5); Neutrophils % (auto) 81.1 %; Nitrite Urine Negative (Negative); Platelet Count 385 K/uL (130-400); Protein Urine Negative (Negative); RBC Urine Automated 0-4 /hpf (0-4); RDW Coefficient of Variation 15.4 % (11.5-14.5); RDW Standard Deviation 51.5 fL (36.4-46.3); Red Blood Count 4.82 M/uL (4.2-5.4); Specific Gravity Urine 1.019 (1.000-1.030); Urobilinogen Urine Negative (Negative); WBC Urine Automated >30 /hpf (0-5); White Blood Count 9.27 K/uL (4.8-10.8)
[2021-11-04 13:58] LABS: Albumin Globulin Ratio 1.1 (0.9-2); BUN Creatinine Ratio 42.2 (10-20); Bilirubin,Total 0.5 mg/dl (0.2-1.0); Calcium 9.5 mg/dl (8.5-10.1); Est GFR (African American) 18.6 ml/min; Globulin 3.6 gm/dl (2.5-4.0); Potassium 5.7 mmol/L (3.5-5.1); Total Protein 7.6 gm/dl (6.0-8.3)
[2021-11-04] MEDS ORDERED: THIAMINE HCL 200 MG in SODIUM CHLORIDE 0.9% 50 ML IV STA (14:23)
[2021-11-04] MEDS ORDERED: PIPERACILLIN/TAZOBACTAM 4.5 GM/120 ML BAG IV ONE (14:23)
[2021-11-04] MEDS ORDERED: D5W AND NSS 1,000 ML IV STA (14:23)
[2021-11-04] MEDS ORDERED: PIPERACILL/TAZOBAC CONSULT ACTIVE PRN (14:23)
[2021-11-04 14:25] LABS: Creatine Kinase 16 U/L (26-192); Magnesium 2.3 mg/dl (1.7-2.4)
--- NOTE | 2021-11-04 14:30 | CT Scan Report ---
ABDOMEN AND PELVIS CT WITHOUT CONTRAST CT DOSE: 240.70 mGy.cm HISTORY: Acute generalized abdominal pain with weakness abd pain, weakness TECHNIQUE: Multiaxial CT images of the abdomen and pelvis were performed without contrast. A dose lo wering technique was utilized adhering to the principles of ALARA. COMPARISON STUDY: CT abdomen and pelvis 04/16/2021 FINDINGS: Imaged inferior cardiac chambers are unremarkable. Mild subsegmental bibasilar atelectasis. There are 2 solid nodules of the basal left lower lobe measuring up to 3 mm, indeterminate. Study is degraded by respiratory motion artifact and lack of contrast. No pneumatosis or pneumoperitoneum. The unenhanced spleen, moderately atrophic pancreas and adrenal glands are unremarkable. Gallbladder is mildly distended. The unenhanced liver is unremarkable. Mild nonspecific bilateral perinephric str anding. Renal sinus cysts of the kidneys without hydronephrosis. 2 mm nonobstructing calculus of the posterior interpolar right kidney. No ureteral calculi or hydronephrosis. Moderate urinary bladder di stention. Uterus and adnexa are unremarkable. Atherosclerosis of the aorta without aneurysm. Subcenti meter lymph nodes of the right lower quadrant mesentery. Colonic diverticulosis with mild to moderate rectal fecal retention. 3.4 x 4.4 cm mass of the cecum w ith extension to the ileocecal valve is redemonstrated. This results in high-grade small bowel obstru ction with numerous dilated air-filled loops of small bowel measuring up to 3.9 cm. Several loops of small bowel demonstrate mild wall thickening. Unremarkable soft tissues. Degenerative changes of the spine, pelvis and hips. Mild lumbar levoscoliosis. No destructive bone lesions are identified. IMPRESSION: 1. Infiltrative mass of the cecum and ileocecal valve is redemonstrated compatible with the patient's known biopsy-proven colonic adenocarcinoma. This results in a high-grade small bowel obstruction. 2. No pneumatosis or pneumoperitoneum. 3. Subcentimeter lymph nodes of the right lower quadrant mesentery. Attention at follow-up recommende d to exclude developing local lymphatic metastasis. 4. Nonobstructing right nephrolithiasis. 5. Incidental findings as above. ACT 112: Negative or not required by law. The above report was generated using voice recognition software. It may contain grammatical, syntax o r spelling errors. Electronically signed by: Timo Maguire M.D. 11/04/2021 2:29 PM
--- NOTE | 2021-11-04 14:39 | XRay Report ---
XR chest 1V portable HISTORY: 80 years-old Female abd pain weakness acute generalized abdominal pain with weakness COMPARISON: CT abdomen and pelvis of same day, chest radiograph 04/16/2021 TECHNIQUE: Portable AP view of the chest FINDINGS: Cardiomediastinal and hilar silhouettes are within normal limits. No pneumothorax, pleural effusion o r overt pulmonary edema. Mild subsegmental left basilar atelectasis. Skinfold projects over the later al left hemithorax. Degenerative changes of the shoulders and spine. IMPRESSION: No acute process. ACT 112: Negative or not required by law. The above report was generated using voice recognition software. It may contain grammatical, syntax o r spelling errors. Electronically signed by: Timo Maguire M.D. 11/04/2021 2:37 PM
[2021-11-04 14:43] LABS: Troponin I < 0.03 ng/ml (0-0.04)
[2021-11-04 15:13] LABS: Base Excess VBG -12.8 mEq/L; HCO3 VBG 13 mmol/L; PCO2 VBG 28 mmHg (38-50); PO2 VBG 30 mmHg; pH VBG 7.27 (7.36-7.41)
[2021-11-04 15:15] LABS: Oxygen Saturation VBG < 60.0 %
--- NOTE | 2021-11-04 16:19 | Surgery Consultation ---
Date of Consultation November 04, 2021 Assessment & Plan (1) Adenocarcinoma of cecum: This is an 80y F with a PMH of HTN, CKD, carotid bruit who presents to the [facility] ED on 11/04/21 with complaints of nausea/vomiting over the last couple of weeks. Of significance patient was diagnosed with adenocarcinoma of the cecum in the Fall of last year by colonoscopy. Despite consultations with both surgery and oncology recommending surgery she has not made any attempts to proceed and has been lost to follow up. Today she reports due to obstructive symptoms over the last couple of weeks. A CT a/p that revealed an infiltrative mass of the cecum and ileocecal valve resulting in a high-grade small bowel obstruction, in addition to some surrounding lymphadenopathy. Blood work is notable for hypoglycemia (53), JUAN on CKD with Cr: 2.6, K: 5.7, Lactate 1.2, WBC:9. On exam patient's abdomen is softly distended with mild generalized discomfort. She is tachycardic to the 100's. Patient appears willing to surgical intervention at this point. CEA 15.7 in oct 16. Given this we recommend patient be admitted to the hospitalist service for medical optimization, appreciate their assistance. NGT has been ordered. Keep NPO with IVF. We will likely proceed with OR sometime in the next few days. Pt seen and examined with Dr. Heaton. We will follow along with further recommendations forthcoming. History of Present Illness History of Present Illness This is an 80y F with a PMH of HTN, CKD, carotid bruit who presents to the [facility] ED on 11/04/21 with complaints of nausea/vomiting over the last couple of weeks. Of significance patient was diagnosed with adenocarcinoma of the cecum in the Fall of last year. It was recommended and offered to patient to undergo a right hemicolectomy and she has met with Dr. Corbin (general surgery) and Dr. Gallegos(oncology) both as an outpatient to go over her options in detail. Despite this the patient has taken significant time to think over the decision and has not made any attempts to proceed. Today she reports to the ER due to severe nausea/vomiting over the last two weeks with the inability to keep much of anything down. Today she underwent a CT a/p that revealed an infiltrative mass of the cecum and ileocecal valve resulting in a high-grade small bowel obstruction, in addition to some surrounding lymphadenopathy. Patient states her last BM was today, but was small. She is open to considering surgical intervention now. Allergies Allergy/AdvReac Type Severity Reaction Status Date / Time No Known Allergies Allergy Verified 11/04/21 15:08 Home Medications Medication Instructions Recorded Confirmed Type acetaminophen 500 mg tablet 1,000 mg PO Q6H PRN 04/16/21 11/04/21 History (Tylenol Extra Strength) Patient History Medical History Adenocarcinoma of cecum Anemia Broken ankle Carotid bruit CKD (chronic kidney disease) stage 4, GFR 15-29 ml/min Surgical History H/O section H/O colonoscopy Family History Father Diabetes Mother Kidney disease Social History Smoking Status: Former smoker Tobacco Type: Cigarettes Do You Dip or Chew Tobacco: No; Hx Alcohol Use: No Hx Substance Use: No Preferred Language: Belgian Communication Ability: Effective Private Pilot Required: No Beliefs That Will Affect Care: None marital status: / Current Living Situation: Significant Other current occupational status: retired How many Children do You have: 4 Other Information That Helps Us Care for You: No Feels Safe at Home: Yes Safety Concerns: Feels Safe At This Time Assistive Devices: None Assistive Devices Comment: dentures not here Review of Systems Constitutional: no fever and no chills Gastrointestinal: + bloating, + nausea and + vomiting Physical Exam Physical Exam: awake/alert Respiratory: normal respiratory effort Gastrointestinal (Abdomen): Inspection/Auscultation: + abdomen distended Percussion/Palpation: + abdomen tender (mild generalized discomfort) and abdomen soft Results & Data ([facility]) Vital Signs (Past 12 Hours) Vital Signs Temp Pulse Pulse Resp BP BP Pulse Ox 11/04/21 15:00 109 H 22 138/43 L 98 11/04/21 13:35 100 H 20 115/88 98 11/04/21 12:55 36.5 C 115 H 20 146/94 H 98 Diagnostic Findings ABDOMEN AND PELVIS CT WITHOUT CONTRAST CT DOSE: 240.70 mGy.cm HISTORY: Acute generalized abdominal pain with weakness abd pain, weakness TECHNIQUE: Multiaxial CT images of the abdomen and pelvis were performed without contrast. A dose lowering technique was utilized adhering to the principles of ALARA. COMPARISON STUDY: CT abdomen and pelvis 04/16/2021 FINDINGS: Imaged inferior cardiac chambers are unremarkable. Mild subsegmental bibasilar atelectasis. There are 2 solid nodules of the basal left lower lobe measuring up to 3 mm, indeterminate. Study is degraded by respiratory motion artifact and lack of contrast. No pneumatosis or pneumoperitoneum. The unenhanced spleen, moderately atrophic pancreas and adrenal glands are unremarkable. Gallbladder is mildly distended. The unenhanced liver is unremarkable. Mild nonspecific bilateral perinephric stranding. Renal sinus cysts of the kidneys without hydronephrosis. 2 mm nonobstructing calculus of the posterior interpolar right kidney. No ureteral calculi or hydronephrosis. Moderate urinary bladder distention. Uterus and adnexa are unremarkable. Atherosclerosis of the aorta without aneurysm. Subcentimeter lymph nodes of the right lower quadrant mesentery. Colonic diverticulosis with mild to moderate rectal fecal retention. 3.4 x 4.4 cm mass of the cecum with extension to the ileocecal valve is redemonstrated. This results in high-grade small bowel obstruction with numerous dilated air- filled loops of small bowel measuring up to 3.9 cm. Several loops of small bowel demonstrate mild wall thickening. Unremarkable soft tissues. Degenerative changes of the spine, pelvis and hips. Mild lumbar levoscoliosis. No destructive bone lesions are identified. IMPRESSION: 1. Infiltrative mass of the cecum and ileocecal valve is redemonstrated compatible with the patient's known biopsy-proven colonic adenocarcinoma. This results in a high-grade small bowel obstruction. 2. No pneumatosis or pneumoperitoneum. 3. Subcentimeter lymph nodes of the right lower quadrant mesentery. Attention at follow-up recommended to exclude developing local lymphatic metastasis. 4. Nonobstructing right nephrolithiasis. 5. Incidental findings as above. ACT 112: Negative or not required by law. The above report was generated using voice recognition software. It may contain grammatical, syntax or spelling errors. Electronically signed by: Timo Magurie M.D. 11/04/2021 2:29 PM PG Care Time/CCT Total # of Minutes Spent Total Time Spent with Patient: Total time spent is greater than 50% in coordination of care (as documented) at patient's floor/unit and/or counseling patient: Coding Level of Care Code 69269 Initial Inpt Care Lvl 1 Diagnoses Adenocarcinoma of cecum C18.0
--- NOTE | 2021-11-04 17:20 | History & Physical Report ---
Date of Service November 04, 2021 Assessment & Plan (1) SBO (small bowel obstruction): Plan: SBO 2/[address]: Infiltrative mass of cecum and ileocecal valve, 3.4 x 4.4 cm mass, resulting high-grade small bowel obstruction Surgery consulted. Recommended for admission, anticipate surgical intervention during this hospitalization NGT placed N.p.o. IV FM No leukocytosis Hemoglobin 14, potassium 5.7, creatinine 2.68 from prior 1.6 Troponin negative Procalcitonin negative Covid negativeCXR: No acute process (2) Acute kidney injury superimposed on CKD: Plan: JUAN Creatinine 2.6 from prior baseline 1.64 Suspect prerenal Received fluid resuscitation in ER, 1 L NSS, 1 L D5 NS Continue IV FM as above BMP daily Hold nephrotoxins - Hyperkalemia as below (3) Adenocarcinoma of cecum: Plan: Ileocecal valve adenocarcinoma Diagnosed 04/17/2021 Biopsy-provenpatient had previously refused surgical intervention Follow-up with Dr. Gao and CCP in the past Was following with every 3 hours, CEA creasing from 5.3-15 at last visit Anticipate bowel resection as noted above, may follow-up with CCP as outpatient following this. (4) CKD (chronic kidney disease) stage 4, GFR 15-29 ml/min: Plan: - As above (5) Hypertension: Plan: Patient reports previously on blood pressure medications, possibly metoprolol but she was normotensive to low without these and so these were all discontinued in the past Is not currently taking any home antihypertensives Normotensive at assessment, no additional meds at this time (6) Asymptomatic bacteriuria: Plan: Infected appearing UA -Patient denies any dysuria, burning, urgency, hesitancy, or urinary change UA 2+ leukocyte esterase, increased white blood cells, 10-20 ProThelial cells, 1+ bacteria in ER, UC pending -Follow, received antibiotics as above would not prescribe additional for this unless symptoms develop or signs of infection (7) Hyperkalemia: Plan: Volume depleted, hemoconcentrated on admission Potassium 5.7 on admission No chest pain, EKG changes Received NSS, and D5 NS hydration in ER Repeat BMP following volume resuscitation pending JUAN with management as above - Lactulose/patiromer limited by NPO status, +D5/insulin if remaining hyperkalemic Plan: DVT prophylaxis: Heparin due to JUAN Diet: N.p.o. for bowel obstruction Disposition: Medical/surgical CODE STATUS: Full code per patient, surrogate decision maker would be her miguel Marie available at [phone] History of Present Illness Primary Care Provider: Manjeet Heath MD Jeana is an 80-year-old female with a past medical history of known adenocarcinoma of the bowel, CKD 4, carotid bruits, and hypertension who presents with a small bowel obstruction. CT shows infiltrative mass of the cecum and ileocecal valve and high-grade SBO. Surgery was consulted, recommend admission and anticipate surgical intervention during this hospitalization. Jeana reports that she has had progressive nausea, vomiting, and stomach distention for the last 2 weeks. She has a known cancer in her bowels which she has not wanted surgery or treatment for up until now. She reports that 2 weeks ago her symptoms suddenly worsened, she became very nauseous and would have vomiting with any attempted meals, thin liquids, or milk. She reports her vomiting is mostly light-colored to clear/pinkish/orange. She has had no blood in her emesis, no black emesis. Denies abdominal pain, endorses abdominal soft distention. She is continued to have some bowel movements, takes laxatives at home but these are relatively small. Formed, not liquid and without blood or melena. Denies shortness of breath, difficulty breathing, chest pain, chest pressure, cough. Denies fever, chills, sweats. She denies a history of cardiac or lung disease. Medical History: Reviewed Medications: Reviewed Surgical History: Reviewed Allergies: Reviewed Social History: Code Status: Full code. Discussed with patient, she reports that in emergency she would want her medical decision-maker to be her miguel Marie Jonathan. Available at #[phone] Allergies Allergy/AdvReac Type Severity Reaction Status Date / Time No Known Allergies Allergy Verified 11/04/21 15:08 Home Medications Medication Instructions Recorded Confirmed Type acetaminophen 500 mg tablet 1,000 mg PO Q6H PRN 04/16/21 11/04/21 History (Tylenol Extra Strength) Past Med/Surg History Medical History Anemia Broken ankle Carotid bruit CKD (chronic kidney disease) stage 4, GFR 15-29 ml/min Surgical History H/O section H/O colonoscopy Family History Father Diabetes Mother Kidney disease Social History Smoking Status: Never smoker Tobacco Type: Cigarettes Hx Alcohol Use: Yes Alcohol type: beer Hx Substance Use: No Preferred Language: Guinean Communication Ability: Effective Field Marketing Representative Required: No Beliefs That Will Affect Care: None marital status: / Current Living Situation: Significant Other current occupational status: retired How many Children do You have: 4 Feels Safe at Home: Yes Assistive Devices: None Review of Systems Review of Systems: All systems reviewed & are unremarkable except as noted in HPI & below Physical Exam Physical Exam: General: A&Ox3. NAD. Cooperative. HEENT: Atraumatic, normocephalic. Visual acuity and hearing grossly intact. Pupils equal and reactive to light. Pulm: CTAB A&P. -wheezes, -rales, -rhonchi. Symmetrical chest rise. No increase in work of breathing. No respiratory distress. Cardiac: RRR, -mrg. Radial pulses intact and symmetrical. Abdominal: Softly distended, mild diffuse tenderness without rebound tenderness or guarding. Bowel sounds diminished. Extremities: Warm, dry. No edema. Sensation to soft touch intact in hands and feet without asymmetry. Blind Cleaner strength, ankle dorsiflexion, ankle plantar flexion intact bilaterally. PT pulse and radial pulse intact bilaterally. Results & Data Results & Data ([facility]) Vital Signs (Past 12 Hours) Vital Signs Temp Pulse Pulse Resp BP BP Pulse Ox 11/04/21 16:23 83 20 130/73 98 11/04/21 15:00 109 H 22 138/43 L 98 11/04/21 13:35 100 H 20 115/88 98 11/04/21 12:55 36.5 C 115 H 20 146/94 H 98 PG Care Time/CCT Total # of Minutes Spent Total Time Spent with Patient: Total time spent is greater than 50% in coordination of care (as documented) at patient's floor/unit and/or counseling patient: Coding Level of Care Code 97394 Initial Inpt Care Lvl 3 Diagnoses SBO (small bowel obstruction) K56.609 Adenocarcinoma of cecum C18.0 CKD (chronic kidney disease) stage 4, GFR 15-29 ml/min N18.4 Hypertension I10 Hypertension type: unspecified Acute kidney injury superimposed on CKD N17.9; N18.9 Asymptomatic bacteriuria R82.71 Hyperkalemia E87.5 (1) Hypertension Hypertension type: unspecified Qualified Code(s): I10 - Essential (primary) hypertension
[2021-11-04 18:28] LABS: Potassium 4.3 mmol/L (3.5-5.1)
[2021-11-04 18:29] LABS: BUN Creatinine Ratio 43.8 (10-20); Calcium 7.9 mg/dl (8.5-10.1); Creatinine Clr Calc Pharmacy 12.3 ml/min; Est GFR (African American) 23.7 ml/min; Est GFR (Non-African American) 20.5 ml/min
[2021-11-04] MEDS ORDERED: ACETAMINOPHEN 325 MG TAB PO PRN (19:02)
[2021-11-04] MEDS ORDERED: POLYETHYLENE (MIRALAX) 17 GM PACK PO PRN (19:02)
[2021-11-04] MEDS ORDERED: ONDANSETRON INJ 2 MG/ML 2 ML VIAL IV PRN (19:02)
--- NOTE | 2021-11-04 19:11 | Emergency Department Note ---
Impression & Plan SBO (small bowel obstruction), Adenocarcinoma of cecum, Acute kidney injury superimposed on CKD, Metabolic acidosis ED Provider Note NAME: KATJA TSAI AGE: 80 SEX: F ARRIVES VIA: Ambulance INFORMANT: Patient ED PROVIDER(S): Farhan Cool MD CHIEF COMPLAINT: Abdominal pain, weakness PLAN: Disposition: Admit MEDICAL DECISION MAKING: The patient is a pleasant 80-year-old woman with a past medical history of adenocarcinoma of the cecum for which she has yet to receive medical or surgical treatment who presents to the emergency department accompanied by her for evaluation of acute worsening of abdominal pain with nausea and vomiting for the past several weeks where she reports she is unable to keep food or drink distantly. She reports she has been attempting to hermosillo with milk. She reports she has moved her bowels couple of days. She reports she has been having ongoing mid abdominal pain for the past several months with decreased oral intake. She reports that she has met with apology at the cancer center and also had consultation with surgery but had yet to make any decision regarding her treatment plan. She denies any recent cough, congestion. Reports she does not like hospitals and that is why she delayed coming in but reports finally made the decision to come in today because she has been unable to walk for the past week due to weakness. On arrival the patient is acute on chronically ill-appearing but no acute distress, afebrile with heart rate in the 110s and vital signs otherwise s table. She appears clinically dry and cachectic. Her abdomen is mildly distended but soft and nontender. She exhibits generalized weakness throughout without focal weakness. EKG with ST abnormalities without overt acute ST elevation. Chest x-ray negative for acute cardiopulmonary process. WBC, H/H and platelets within normal limits. Chemistry does demonstrate anion gap metabolic acidosis with bicarbonate of 13 and anion gap of 22 which is suspected to be related to starvation ketoacidosis given the patient's poor oral intake as the patient's lactic acid was 1.2, within normal limits. Patient's VBG did demonstrate a pH of 7.27 with a component of respiratory compensation with PCO2 of 28. The patient's creatinine was elevated from baseline at 2.6, with BUN/Cr > 40 consistent with the patient's clinically dry appearance. Of S okay so CPK is within normal limits. Troponin negative/undetectable. Lipase not elevated. Procalcitonin is not significantly elevated. UA is suspicious for infection with bacteria, WBCs and leuk esterase albeit with epithelial cells present. The patient's COVID-19 RNA, NAAT test was negative. CT of the abdomen pelvis was performed and demonstrates small bowel obstruction secondary to known cecal adenocarcinoma. Evidence of lymphatic metastasis is seen. The patient reported some improvement after initial treatment with IV fluids including dextrose with normal saline. Thiamine was also administered given the patient's cachectic appearance. The patient denied any significant nausea. I did review the findings with her and her at the bedside. She does agree with plan for admission. She initially was resistant against NG tube placement. Case was discussed with general surgery on-call, Peyton Morris, general surgery PAC with Dr. Heaton, general surgery on-call who evaluated the patient at the bedside. Patient then did agree to attempt NG tube. She was also open to the possibility of surgery and so surgery will follow and plan for likely surgical intervention once she is medically stabilized. Case was discussed with Dr. Rivera, [facility] hospitalist, who will evaluate the patient for admission. Triage Nursing notes reviewed and agree them. Prior medical records reviewed Vital Signs: reviewed and remarkable for tachycardia. Differential diagnosis: Appendicitis, ovarian cyst, ovarian torsion, ectopic , TOA, PID, infections, diverticulitis, UTI, obstruction, mesenteric ischemia, aortic pathology, inflammatory bowel disease, renal colic, PUD, pancreatitis, biliary pathology, hernia, volvulus, constipation, as well as other pathologies. ER treatment provided: See below. Diagnostics interpreted by me: ECG: Sinus tachycardia, 105 bpm, P SVC's, ST abnormalities, no overt ST elevation, QTC 452, QRS 72. Cardiac Monitoring: An order for continuous cardiac monitoring was placed and demonstrated Sinus tachycardia, 105 bpm, no ectopy. Laboratory studies: See below Imaging studies: See below Consultation(s): Peyton Morris, general surgery PAC with Dr. Heaton, general surgery. Dr. Rivera, [facility] hospitalist, who will evaluate the patient for admission. HPI: The patient is a pleasant 80-year-old woman with a past medical history of adenocarcinoma of the cecum for which she has yet to receive medical or surgical treatment who presents to the emergency department accompanied by her for evaluation of acute worsening of abdominal pain with nausea and vomiting for the past several weeks where she reports she is unable to keep food or drink distantly. She reports she has been attempting to hermosillo with milk. She reports she has moved her bowels couple of days. She reports she has been having ongoing mid abdominal pain for the past several months with decreased oral intake. She reports that she has met with apology at the cancer center and also had consultation with surgery but had yet to make any decision regarding her treatment plan. She denies any recent cough, congestion. Reports she does not like hospitals and that is why she delayed coming in but reports finally made the decision to come in today because she has been unable to walk for the past week due to weakness. ROS: See above HPI for pertinent positives & negatives. A total of 10 systems reviewed and were otherwise negative. VITALS:See Below PHYSICAL EXAMINATION: GENERAL: Awake, alert, acute on chronically ill-appearing, cachectic, in no distress HENT: Normocephalic, atraumatic. Oropharynx with dry mucous membranes and otherwise unremarkable. EYES: Normal conjunctiva. Sclera non-icteric. NECK: Supple. No nuchal rigidity. FROM. No JVD. RESPIRATORY: Clear to auscultation. CARDIAC: Regular rate, normal rhythm. Extremities warm and well perfused. Pulses equal. ABDOMEN: Mildly distended but soft. Mild generalized discomfort without discrete tenderness to palpation. No rebound or guarding. No masses. RECTAL: Deferred. MUSCULOSKELETAL: Chest examination reveals no tenderness. The back is symmetrical on inspection without obvious abnormality. There is no CVA tenderness to palpation. No joint edema. LOWER EXTREMITIES: Calves are equal size bilaterally and non-tender. No edema. No discoloration. NEURO: Normal sensorium. No sensory or motor deficits noted. SKIN: No rash or jaundice noted. ED COURSE: Critical Care: I have personally spent greater than 75 minutes of critical care time in the di rect management of this patient. This includes bedside care, interpretation of diagnostic studies, and testing, discussion with consultants, patient, and family members, and other required patient management activities. This 75 minutes is in excess of all separately billable procedures. Farhan Cool MD Past Med/Surg History Medical History Adenocarcinoma of cecum Anemia Broken ankle Carotid bruit CKD (chronic kidney disease) stage 4, GFR 15-29 ml/min Surgical History H/O section H/O colonoscopy Family History Father Diabetes Mother Kidney disease Social History Smoking Status: Former smoker Tobacco Type: Cigarettes Do You Dip or Chew Tobacco: No; Hx Alcohol Use: No Hx Substance Use: No Preferred Language: Slovenian Communication Ability: Effective Territory Account Executive Required: No Beliefs That Will Affect Care: None marital status: / Current Living Situation: Significant Other current occupational status: retired How many Children do You have: 4 Other Information That Helps Us Care for You: No Feels Safe at Home: Yes Safety Concerns: Feels Safe At This Time Assistive Devices: None Assistive Devices Comment: dentures not here Allergies Allergies Allergy/AdvReac Type Severity Reaction Status Date / Time No Known Allergies Allergy Verified 11/04/21 15:08 Home Meds Home Medications Medication Instructions Recorded Confirmed acetaminophen 500 mg tablet 1,000 mg PO Q6H PRN 04/16/21 11/04/21 (Tylenol Extra Strength) Results & Data (ED) Vital Signs Vital Signs - 24 hr 11/04/21 12:55 11/04/21 13:35 11/04/21 15:00 Temperature 36.5 C Temperature Source Oral Pulse Rate 115 H Pulse Rate [Left Finger] 100 H 109 H Pulse Rhythm Regular Pulse Rhythm [Left Finger] Regular Pulse Strength Normal Pulse Strength [Left Finger] Normal Respiratory Rate 20 20 22 Respiratory Effort / Characteristics Non-Labored Spontaneous Non-Labored Spontaneous Respiratory Depth Normal Normal Respiratory Pattern Regular Regular Blood Pressure 146/94 H Blood Pressure [Left Arm] 115/88 138/43 L Blood Pressure Mean 111 Blood Pressure Mean [Left Arm] 97 74 Blood Pressure Position Lying Blood Pressure Position [Left Arm] Sitting Lying Pulse Oximetry 98 98 98 Oxygen Delivery Method Room Air Room Air Sepsis Recent Fever Within 48 Hours No Sepsis New/Unexplained Change in Mental Status No Sepsis Action Taken by Nursing No Action Required 11/04/21 16:23 11/04/21 17:00 Temperature Temperature Source Pulse Rate Pulse Rate [Left Finger] 83 94 H Pulse Rhythm Pulse Rhythm [Left Finger] Pulse Strength Pulse Strength [Left Finger] Respiratory Rate 20 22 Respiratory Effort / Characteristics Respiratory Depth Respiratory Pattern Blood Pressure Blood Pressure [Left Arm] 130/73 104/64 Blood Pressure Mean Blood Pressure Mean [Left Arm] 92 77 Blood Pressure Position Blood Pressure Position [Left Arm] Lying Pulse Oximetry 98 96 Oxygen Delivery Method Sepsis Recent Fever Within 48 Hours Sepsis New/Unexplained Change in Mental Status Sepsis Action Taken by Nursing Laboratory Data Attestation: I reviewed the patient's lab results. Result diagrams: 11/04/21 13:15 11/04/21 17:58 Lab Results 11/04/21 11/04/21 11/04/21 Range/Units 13:15 13:15 13:15 WBC 9.27 (4.8-10.8) K/uL RBC 4.82 (4.2-5.4) M/uL Hgb 14.5 (12.0-16.0) g/dL Hct 43.7 (37-47) % MCV 90.7 (80-100) fL MCH 30.1 (25-34) pg MCHC 33.2 (32-36) g/dL RDW Std Deviation 51.5 H (36.4-46.3) fL RDW Coeff of Stevie 15.4 H (11.5-14.5) % Plt Count 385 (130-400) K/uL MPV 11.3 H (7.4-10.4) fL Immature Gran % (Auto) 0.3 % Neut % (Auto) 81.1 % Lymph % (Auto) 13.1 % [place] % (Auto) 5.4 % Eos % (Auto) 0.1 % Baso % (Auto) 0.0 % Neut # (Auto) 7.52 H (1.4-6.5) K/uL Lymph # (Auto) 1.21 (1.2-3.4) K/uL [place] # (Auto) 0.50 (0.11-0.59) K/uL Eos # (Auto) 0.01 (0-0.5) K/uL Baso # (Auto) 0.00 (0-0.2) K/uL Immature Gran # (Auto) 0.03 H (0.00-0.02) K/uL VBG pH (7.36-7.41) VBG pCO2 (38-50) mmHg VBG pO2 mmHg VBG HCO3 mmol/L VBG O2 Saturation % VBG Base Excess mEq/L Barometric Pressure mm/Hg Sodium 134 L (136-145) mmol/L Potassium 5.7 H (3.5-5.1) mmol/L Chloride 98 (98-107) mmol/L Carbon Dioxide 14 L (21-32) mmol/L Anion Gap 22 H (3-11) BUN 113 H (6-23) mg/dl Creatinine 2.68 H (0.6-1.2) mg/dl Est Cr Clr Drug Dosing 10.0 ml/min Est GFR ( Amer) 18.6 ml/min Est GFR (Non-Af Amer) 16.0 ml/min BUN/Creatinine Ratio 42.2 H (10-20) Glucose 53 L* (70-99(Fasting)) mg/dl POC Glucose (70-99) mg/dl Lactate (0.4-2.0) mmol/L Calcium 9.5 (8.5-10.1) mg/dl Phosphorus (2.5-4.9) mg/dl Magnesium (1.7-2.4) mg/dl Total Bilirubin 0.5 (0.2-1.0) mg/dl AST 13 (13-39) U/L ALT 8 (7-52) U/L Alkaline Phosphatase 86 (34-104) U/L Total Creatine Kinase (26-192) U/L Troponin I (0-0.04) ng/ml Total Protein 7.6 (6.0-8.3) gm/dl Albumin 4.0 (3.4-5.0) gm/dl Globulin 3.6 (2.5-4.0) gm/dl Albumin/Globulin Ratio 1.1 (0.9-2) Lipase 56 (11-82) U/L Procalcitonin (0-0.5) ng/ml Urine Color Yellow Urine Appearance Clear (Clear) Urine pH 5.0 (4.5-7.5) Ur Specific [place] 1.019 (1.000-1.030) Urine Protein Negative (Negative) Urine Glucose (UA) Negative (Negative) Urine Ketones Trace H (Negative) Urine Blood Negative (Negative) Urine Nitrite Negative (Negative) Urine Bilirubin Negative (Negative) Urine Urobilinogen Negative (Negative) Ur Leukocyte Esterase 2+ H (Negative) Urine WBC (Auto) >30 H (0-5) /hpf Urine RBC (Auto) 0-4 (0-4) /hpf U Hyaline Cast (Auto) 1-5 (0-5) /lpf U Epithel Cells (Auto) 10-20 H (0-5) /lpf Urine Bacteria (Auto) 1+ H (Negative) Urine Yeast Not Reportable SARS-CoV-2, RNA, NAAT (NEGATIVE) 11/04/21 11/04/21 11/04/21 Range/Units 13:15 14:01 14:36 WBC (4.8-10.8) K/uL RBC (4.2-5.4) M/uL Hgb (12.0-16.0) g/dL Hct (37-47) % MCV (80-100) fL MCH (25-34) pg MCHC (32-36) g/dL RDW Std Deviation (36.4-46.3) fL RDW Coeff of Stevie (11.5-14.5) % Plt Count (130-400) K/uL MPV (7.4-10.4) fL Immature Gran % (Auto) % Neut % (Auto) % Lymph % (Auto) % [place] % (Auto) % Eos % (Auto) % Baso % (Auto) % Neut # (Auto) (1.4-6.5) K/uL Lymph # (Auto) (1.2-3.4) K/uL [place] # (Auto) (0.11-0.59) K/uL Eos # (Auto) (0-0.5) K/uL Baso # (Auto) (0-0.2) K/uL Immature Gran # (Auto) (0.00-0.02) K/uL VBG pH (7.36-7.41) VBG pCO2 (38-50) mmHg VBG pO2 mmHg VBG HCO3 mmol/L VBG O2 Saturation % VBG Base Excess mEq/L Barometric Pressure mm/Hg Sodium (136-145) mmol/L Potassium (3.5-5.1) mmol/L Chloride (98-107) mmol/L Carbon Dioxide (21-32) mmol/L Anion Gap (3-11) BUN (6-23) mg/dl Creatinine (0.6-1.2) mg/dl Est Cr Clr Drug Dosing ml/min Est GFR ( Amer) ml/min Est GFR (Non-Af Amer) ml/min BUN/Creatinine Ratio (10-20) Glucose (70-99(Fasting)) mg/dl POC Glucose (70-99) mg/dl Lactate 1.2 (0.4-2.0) mmol/L Calcium (8.5-10.1) mg/dl Phosphorus 6.0 H (2.5-4.9) mg/dl Magnesium 2.3 (1.7-2.4) mg/dl Total Bilirubin (0.2-1.0) mg/dl AST (13-39) U/L ALT (7-52) U/L Alkaline Phosphatase (34-104) U/L Total Creatine Kinase 16 L (26-192) U/L Troponin I < 0.03 (0-0.04) ng/ml Total Protein (6.0-8.3) gm/dl Albumin (3.4-5.0) gm/dl Globulin (2.5-4.0) gm/dl Albumin/Globulin Ratio (0.9-2) Lipase (11-82) U/L Procalcitonin (0-0.5) ng/ml Urine Color Urine Appearance (Clear) Urine pH (4.5-7.5) Ur Specific [place] (1.000-1.030) Urine Protein (Negative) Urine Glucose (UA) (Negative) Urine Ketones (Negative) Urine Blood (Negative) Urine Nitrite (Negative) Urine Bilirubin (Negative) Urine Urobilinogen (Negative) Ur Leukocyte Esterase (Negative) Urine WBC (Auto) (0-5) /hpf Urine RBC (Auto) (0-4) /hpf U Hyaline Cast (Auto) (0-5) /lpf U Epithel Cells (Auto) (0-5) /lpf Urine Bacteria (Auto) (Negative) Urine Yeast SARS-CoV-2, RNA, NAAT NEGATIVE (NEGATIVE) 11/04/21 11/04/21 11/04/21 Range/Units 14:58 14:58 15:07 WBC (4.8-10.8) K/uL RBC (4.2-5.4) M/uL Hgb (12.0-16.0) g/dL Hct (37-47) % MCV (80-100) fL MCH (25-34) pg MCHC (32-36) g/dL RDW Std Deviation (36.4-46.3) fL RDW Coeff of Stevie (11.5-14.5) % Plt Count (130-400) K/uL MPV (7.4-10.4) fL Immature Gran % (Auto) % Neut % (Auto) % Lymph % (Auto) % [place] % (Auto) % Eos % (Auto) % Baso % (Auto) % Neut # (Auto) (1.4-6.5) K/uL Lymph # (Auto) (1.2-3.4) K/uL [place] # (Auto) (0.11-0.59) K/uL Eos # (Auto) (0-0.5) K/uL Baso # (Auto) (0-0.2) K/uL Immature Gran # (Auto) (0.00-0.02) K/uL VBG pH 7.27 L (7.36-7.41) VBG pCO2 28 L (38-50) mmHg VBG pO2 30 mmHg VBG HCO3 13 mmol/L VBG O2 Saturation < 60.0 % VBG Base Excess -12.8 mEq/L Barometric Pressure 733.9 mm/Hg Sodium (136-145) mmol/L Potassium (3.5-5.1) mmol/L Chloride (98-107) mmol/L Carbon Dioxide (21-32) mmol/L Anion Gap (3-11) BUN (6-23) mg/dl Creatinine (0.6-1.2) mg/dl Est Cr Clr Drug Dosing ml/min Est GFR ( Amer) ml/min Est GFR (Non-Af Amer) ml/min BUN/Creatinine Ratio (10-20) Glucose (70-99(Fasting)) mg/dl POC Glucose 182 H (70-99) mg/dl Lactate (0.4-2.0) mmol/L Calcium (8.5-10.1) mg/dl Phosphorus (2.5-4.9) mg/dl Magnesium (1.7-2.4) mg/dl Total Bilirubin (0.2-1.0) mg/dl AST (13-39) U/L ALT (7-52) U/L Alkaline Phosphatase (34-104) U/L Total Creatine Kinase (26-192) U/L Troponin I (0-0.04) ng/ml Total Protein (6.0-8.3) gm/dl Albumin (3.4-5.0) gm/dl Globulin (2.5-4.0) gm/dl Albumin/Globulin Ratio (0.9-2) Lipase (11-82) U/L Procalcitonin 0.13 (0-0.5) ng/ml Urine Color Urine Appearance (Clear) Urine pH (4.5-7.5) Ur Specific [place] (1.000-1.030) Urine Protein (Negative) Urine Glucose (UA) (Negative) Urine Ketones (Negative) Urine Blood (Negative) Urine Nitrite (Negative) Urine Bilirubin (Negative) Urine Urobilinogen (Negative) Ur Leukocyte Esterase (Negative) Urine WBC (Auto) (0-5) /hpf Urine RBC (Auto) (0-4) /hpf U Hyaline Cast (Auto) (0-5) /lpf U Epithel Cells (Auto) (0-5) /lpf Urine Bacteria (Auto) (Negative) Urine Yeast SARS-CoV-2, RNA, NAAT (NEGATIVE) Administered Medications Heparin Sodium (Porcine) (Heparin Sod 5,000 Unit/0.5 Ml Vial) 5,000 units SQ Q8 PARUL Stop: 12/04/21 21:59 Last Admin: 11/04/21 21:09 Dose: 5,000 units Documented by: [id number] Sodium Chloride (Nss 1000ml) 1,000 mls @ 125 mls/hr IV .Q8H PARUL Stop: 11/05/21 11:01 Last Admin: 11/04/21 19:46 Dose: 125 mls/hr Documented by: [id number] Discontinued Medications Sodium Chloride (Nss 1000ml) 1,000 mls @ 999 mls/hr IV .Q1H1M ONE Stop: 11/04/21 14:00 Last Infusion: 11/04/21 14:20 Dose: 0 mls/hr Documented by: [id number] Admin: 11/04/21 13:19 Dose: 999 mls/hr Documented by: [id number] Acetaminophen (Ofirmev) 1,000 mg in 100 mls @ 400 mls/hr IV NOW STA Stop: 11/04/21 13:14 Last Infusion: 11/04/21 13:34 Dose: 0 mls/hr Documented by: [id number] Admin: 11/04/21 13:19 Dose: 400 mls/hr Documented by: [id number] Thiamine HCl 200 mg/ Sodium (Chloride) 52 mls @ 208 mls/hr IV NOW STA Stop: 11/04/21 14:24 Last Infusion: 11/04/21 14:50 Dose: 0 mls/hr Documented by: [id number] Admin: 11/04/21 14:40 Dose: 208 mls/hr Documented by: [id number] Dextrose/Sodium Chloride (D5w And Nss) 1,000 mls @ 999 mls/hr IV .Q1H1M STA Stop: 11/04/21 15:23 Last Infusion: 11/04/21 15:39 Dose: 0 mls/hr Documented by: [id number] Admin: 11/04/21 14:38 Dose: 999 mls/hr Documented by: [id number] Piperacillin Sod/Tazobactam Sod (Zosyn) 4.5 gm in 120 mls @ 240 mls/hr IV NOW ONE Stop: 11/04/21 14:52 Last Infusion: 11/04/21 15:30 Dose: 0 mls/hr Documented by: [id number] Admin: 11/04/21 15:00 Dose: 240 mls/hr Documented by: [id number] Imaging Data Radiologist's Impression: Abdomen/Pelvis CT 11/04/21 13:[address] WITHOUT CONTRAST CT DOSE: 240.70 mGy.cm HISTORY: Acute generalized abdominal pain with weakness abd pain, weakness TECHNIQUE: Multiaxial CT images of the abdomen and pelvis were performed without contrast. A dose lowering technique was utilized adhering to the principles of ALARA. COMPARISON STUDY: CT abdomen and pelvis 04/16/2021 FINDINGS: Imaged inferior cardiac chambers are unremarkable. Mild subsegmental bibasilar atelectasis. There are 2 solid nodules of the basal left lower lobe measuring up to 3 mm, indeterminate. Study is degraded by respiratory motion artifact and lack of contrast. No pneumatosis or pneumoperitoneum. The unenhanced spleen, moderately atrophic pancreas and adrenal glands are unremarkable. Gallbladder is mildly distended. The unenhanced liver is unremar kable. Mild nonspecific bilateral perinephric stranding. Renal sinus cysts of the kidneys without hydronephrosis. 2 mm nonobstructing calculus of the posterior interpolar right kidney. No ureteral calculi or hydronephrosis. Moderate urinary bladder distention. Uterus and adnexa are unremarkable. Ath erosclerosis of the aorta without aneurysm. Subcentimeter lymph nodes of the right lower quadrant mesentery. Colonic diverticulosis with mild to moderate rectal fecal retention. 3.4 x 4.4 cm mass of the cecum with extension to the ileocecal valve is redemonstrated. This results in high-grade small bowel obstruction with numerous dilated air- filled loops of small bowel measuring up to 3.9 cm. Several loops of small bowel demonstrate mild wall thickening. Unremarkable soft tissues. Degenerative changes of the spine, pelvis and hips. Mild lumbar levoscoliosis. No destructive bone lesions are identified. IMPRESSION: 1. Infiltrative mass of the cecum and ileocecal valve is redemonstrated compatible with the patient's known biopsy-proven colonic adenocarcinoma. This results in a high-grade small bowel obstruction. 2. No pneumatosis or pneumoperitoneum. 3. Subcentimeter lymph nodes of the right lower quadrant mesentery. Attention at follow-up recommended to exclude developing local lymphatic metastasis. 4. Nonobstructing right nephrolithiasis. 5. Incidental findings as above. ACT 112: Negative or not required by law. The above report was generated using voice recognition software. It may contain grammatical, syntax or spelling errors. Electronically signed by: Timo Maguire M.D. 11/04/2021 2:29 PM Chest X-Ray 11/04/21 13:53 XR chest 1V portable HISTORY: 80 years-old Female abd pain weakness acute generalized abdominal pain with weakness COMPARISON: CT abdomen and pelvis of same day, chest radiograph 04/16/2021 TECHNIQUE: Portable AP view of the chest FINDINGS: Cardiomediastinal and hilar silhouettes are within normal limits. No pneumothorax, pleural effusion or overt pulmonary edema. Mild subsegmental left basilar atelectasis. Skinfold projects over the lateral left hemithorax. Degenerative changes of the shoulders and spine. IMPRESSION: No acute process. ACT 112: Negative or not required by law. The above report was generated using voice recognition software. It may contain grammatical, syntax or spelling errors. Electronically signed by: Timo Maguire M.D. 11/04/2021 2:37 PM Discharge Plan Visit Data Chief Complaint: Abdominal Pain Stated Complaint: abdominal pain ED Provider: Cross,Farhan E Discharge Problem: SBO (small bowel obstruction), Adenocarcinoma of cecum, Acute kidney injury wal[place] perimposed on CKD, Metabolic acidosis Patient Disposition: Admitted As Inpatient Discharge Instructions Interventions: ED Discharge Assessment Last Done: 11/04/21 18:30
[2021-11-04] MEDS: SODIUM CHLORIDE 0.9% 1000ML 1,000 ML IV SCH (19:46)
[2021-11-04] MEDS: HEPARIN SOD 5,000 UNIT/0.5 ML VIAL SQ SCH (21:09)
[2021-11-05] MEDS: SODIUM CHLORIDE 0.9% 1000ML 1,000 ML IV SCH (03:39)
[2021-11-05] MEDS: HEPARIN SOD 5,000 UNIT/0.5 ML VIAL SQ SCH ×3 (05:16→22:01)
--- NOTE | 2021-11-05 06:44 | Electrocardiogram Report ---
Test Reason : Blood Pressure : / mmHG Vent. Rate : 105 BPM Atrial Rate : 105 BPM P-R Int : 196 ms QRS Dur : 072 ms QT Int : 342 ms P-R-T Axes : 085 -25 091 degrees QTc Int : 452 ms Poor data quality, interpretation may be adversely affected Sinus tachycardia with Premature supraventricular complexes Septal infarct , age undetermined Nonspecific T wave abnormality Abnormal ECG When compared with ECG of 18-APR-2021 13:39, T wave inversion now evident in Lateral leads Criteria for Inferior infarct no longer present Confirmed by Kaveh Mancia ([id number]) on 11/05/2021 6:44:39 AM Referred By: REFERRED SELF Confirmed By:Kaveh Mancia
[2021-11-05 06:52] LABS: Eosinophils # (auto) 0.02 K/uL (0-0.5); Eosinophils % (auto) 0.3 %; Hematocrit (blood only) 35.1 % (37-47); Hemoglobin 11.5 g/dL (12.0-16.0); Immature Granulocytes # (auto) 0.02 K/uL (0.00-0.02); Immature Granulocytes % (auto) 0.3 %; Lymphocytes # (auto) 0.77 K/uL (1.2-3.4); Lymphocytes % (auto) 12.7 %; Mean Corpuscular Hemoglobin 29.8 pg (25-34); Mean Corpuscular Hgb Conc 32.8 g/dL (32-36); Mean Corpuscular Volume 90.9 fL (80-100); Mean Platelet Volume 11.1 fL (7.4-10.4); Monocytes # (auto) 0.37 K/uL (0.11-0.59); Monocytes % (auto) 6.1 %; Neutrophils # (auto) 4.86 K/uL (1.4-6.5); Neutrophils % (auto) 80.6 %; Platelet Count 265 K/uL (130-400); RDW Coefficient of Variation 15.9 % (11.5-14.5); RDW Standard Deviation 52.8 fL (36.4-46.3); Red Blood Count 3.86 M/uL (4.2-5.4); White Blood Count 6.04 K/uL (4.8-10.8)
--- NOTE | 2021-11-05 06:52 | Surgery Progress Note ---
Date of Service November 05, 2021 Assessment & Plan (1) Adenocarcinoma of cecum: Plan: PAD#! The patient fluid and volume status is improving Renal function is improving Patient will need surgery we will plan to do the next 24 to 48 hours Ideally it would be nice to put her on some bowel prep but I do not think she will be able to tolerate it We will plan to get a KUB today This is an 80y F with a PMH of HTN, CKD, carotid bruit who presents to the [facility] ED on 11/04/21 with complaints of nausea/vomiting over the last couple of weeks. Of significance patient was diagnosed with adenocarcinoma of the cecum in the Fall of last year by colonoscopy. Despite consultations with both surgery and oncology recommending surgery she has not made any attempts to proceed and has been lost to follow up. Today she reports due to obstructive symptoms over the last couple of weeks. A CT a/p that revealed an infiltrative mass of the cecum and ileocecal valve resulting in a high-grade small bowel obstruction, in addition to some surrounding lymphadenopathy. Blood work is notable for hypoglycemia (53), JUAN on CKD with Cr: 2.6, K: 5.7, Lactate 1.2, WBC:9. On exam patient's abdomen is softly distended with mild generalized discomfort. She is tachycardic to the 100's. Patient appears willing to surgical intervention at this point. CEA 15.7 in oct 16. Given this we recommend patient be admitted to the hospitalist service for medical optimization, appreciate their assistance. NGT has been ordered. Keep NPO with IVF. We will likely proceed with OR sometime in the next few days. Pt seen and examined with Dr. Heaton. We will follow along with further recommendations forthcoming. Admission and Anticipated Discharge Date Admission Date: November 04, 2021 Subjective She feels much better this morning has not had any further vomiting stating she is passing flatus she denied NG tube stating that he could not get an answer she did not want it Physical Exam Physical Exam: Much better hydrated oral mucosa moist Resting comfortably in bed without any abdominal discomfort The abdomen is bit softer than yesterday when seen in the emergency room there is no tenderness No palpable masses Results & Data ([facility]) Vital Signs (Past 12 Hours) Vital Signs Temp Pulse Resp BP Pulse Ox 11/04/21 22:19 36.5 C 82 14 105/65 98 PG Care Time/CCT Total # of Minutes Spent Total Time Spent with Patient: Total time spent is greater than 50% in coordination of care (as documented) at patient's floor/unit and/or counseling patient: Coding Level of Care Code 97023 Subseq Hosp Care Lvl 3 Diagnoses Adenocarcinoma of cecum C18.0
[2021-11-05 07:18] LABS: Albumin Globulin Ratio 1.2 (0.9-2); Albumin Level 2.8 gm/dl (3.4-5.0); BUN Creatinine Ratio 48.9 (10-20); Bilirubin,Total 0.3 mg/dl (0.2-1.0); Creatinine Clr Calc Pharmacy 14.6 ml/min; Est GFR (African American) 29.3 ml/min; Est GFR (Non-African American) 25.3 ml/min; Globulin 2.3 gm/dl (2.5-4.0); Potassium 4.3 mmol/L (3.5-5.1); Total Protein 5.1 gm/dl (6.0-8.3)
--- NOTE | 2021-11-05 08:40 | XRay Report ---
KUB HISTORY: follow up bowel obstruction COMPARISON: Abdomen and pelvis CT 11/04/2021. FINDINGS: Distended and gas-filled loops of small bowel are again seen throughout the abdomen consist ent the patient's known high-grade small bowel obstruction. Moderate well-formed stool within the rec pamela. Dextroscoliosis of the lobar spine. No renal calculi. No ureteral calculi. No pneumoperitoneum or pneumatosis. IMPRESSION: No significant change in the high-grade small bowel obstruction. ACT 112: Negative or not required by law. Electronically signed by: Renny Solis M.D. 11/05/2021 8:39 AM
[2021-11-05] MEDS: D5W AND NSS 1,000 ML IV SCH ×2 (08:59→17:52)
--- NOTE | 2021-11-05 13:27 | Hospitalist Progress Note ---
Date of Service November 05, 2021 Assessment & Plan (1) SBO (small bowel obstruction): Plan: SBO 2/[address]: Infiltrative mass of cecum and ileocecal valve, 3.4 x 4.4 cm mass, resulting high-grade small bowel obstruction Surgery consulted. anticipate surgical intervention during this hospitalization, hopefully next day or so. Optimizing renal function as below. NGT was unable to be placed, patient refused reattempt. No vomiting at this time. N.p.o. No leukocytosis Hemoconcentrated on admission, hemoglobin decreased to 11.5 with volume resuscitation no signs of active bleeding. Continue to trend Troponin negative Procalcitonin negative Covid negative CXR: No acute process Patient borderline hypoglycemic, D5 added to NSS, continue at 120 cc/h no signs of volume overload Zosyn narrowed to Unasyn for antimicrobial prophylaxis in anticipation of colorectal surgery (2) Acute kidney injury superimposed on CKD: Plan: JUAN Creatinine 2.6 from prior baseline 1.64. 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 Gao and CCP in the past Was following with every 3 hours, CEA creasing from 5.3-15 at last visit Anticipate bowel resection as noted above, may follow-up with CCP as outpatient following this. (4) CKD (chronic kidney disease) stage 4, GFR 15-29 ml/min: Plan: - As above (5) Hypertension: Plan: Patient reports previously on blood pressure medications, possibly metoprolol but she was normotensive to low without these and so these were all discontinued in the past Is not currently taking any home antihypertensives Normotensive at assessment, no additional meds at this time (6) Asymptomatic bacteriuria: Plan: Infected appearing UA -Patient denies any dysuria, burning, urgency, hesitancy, or urinary change UA 2+ leukocyte esterase, increased white blood cells, 10-20 ProThelial cells, 1+ bacteria in ER, UC pending -Follow, received antibiotics as above would not prescribe additional for this unless symptoms develop or signs of infection did receive empiric Zosyn in ER (7) Hyperkalemia: Plan: Resolved with fluids as above, continue to trend daily Volume depleted, hemoconcentrated on admission Potassium 5.7 on admission, normalized following admission No chest pain, EKG changes Received NSS, and D5 NS hydration in ER JUAN with management as above Plan: DVT prophylaxis: Heparin due to JUAN Diet: N.p.o. for bowel obstruction Disposition: Medical/surgical CODE STATUS: Full code per patient, surrogate decision maker would be her miguel Marie available at [phone] Admission and Anticipated Discharge Date Admission Date: November 04, 2021 Darlene Hills is seen at the bedside this morning. She reports that she has not had any vomiting today, and her nausea is a little bit better. Has not had any bowel movements, minimal flatus. Did not tolerate attempted NG placement, refuses further placement. Amenable to placement under anesthesia if she goes to surgery, but refuses a bedtime assessment and does not feel she needs it. Some abdominal discomfort, thinks a little bit better than yesterday but mostly unchanged. Denies chest pain, chest pressure, shortness of breath, difficulty breathing, fever, chills, sweats, dysuria. He is anticipating undergoing surgery, thinks that it is going to be Friday. No other questions or concerns at time of bedside evaluation. Review of Systems Review of Systems: All systems reviewed & are unremarkable except as noted in Subjective Physical Exam Physical Exam: General: A&Ox3. NAD. Cooperative. HEENT: Atraumatic, normocephalic. Visual acuity and hearing grossly intact. Pupils equal and reactive to light. Pulm: CTAB A&P. -wheezes, -rales, -rhonchi. Symmetrical chest rise. No increase in work of breathing. No respiratory distress. Cardiac: RRR, -mrg. Radial pulses intact and symmetrical. Abdominal: Continued to be softly distended, mild diffuse tenderness without rebound tenderness or guarding. Bowel sounds diminished. Extremities: Warm, dry. No edema. Patternmaker Bench strength, ankle dorsiflexion, ankle plantar flexion intact bilaterally. PT pulse and radial pulse intact bilaterally. PG Care Time/CCT Total # of Minutes Spent Total Time Spent with Patient: Total time spent is greater than 50% in coordination of care (as documented) at patient's floor/unit and/or counseling patient: Coding Level of Care Code 85506 Subseq Hosp Care Lvl 3 Diagnoses SBO (small bowel obstruction) K56.609 Acute kidney injury superimposed on CKD N17.9; N18.9 Adenocarcinoma of cecum C18.0 CKD (chronic kidney disease) stage 4, GFR 15-29 ml/min N18.4 Hypertension I10 Hypertension type: unspecified Asymptomatic bacteriuria R82.71 Hyperkalemia E87.5 (1) Hypertension Hypertension type: unspecified Qualified Code(s): I10 - Essential (primary) hypertension
[2021-11-05] MEDS ORDERED: AMPICILLIN/SULBACTAM SOD 1,500 MG in 0.9 % SODIUM CHLORIDE 100 ML IV SCH (13:30)
[2021-11-05] MEDS: MoRPHine SULFATE 2 MG/ML CARP IV PRN ×2 (15:50→22:02)
[2021-11-06] MEDS: D5W AND NSS 1,000 ML IV SCH ×3 (01:12→17:18)
[2021-11-06] MEDS: MoRPHine SULFATE 2 MG/ML CARP IV PRN ×2 (04:12→10:58)
[2021-11-06] MEDS: HEPARIN SOD 5,000 UNIT/0.5 ML VIAL SQ SCH (05:15)
--- NOTE | 2021-11-06 08:14 | Hospitalist Progress Note ---
Date of Service November 06, 2021 Assessment & Plan (1) SBO (small bowel obstruction): Plan: This is an 80-year-old female with a known history of ileocecal valve adenocarcinoma, hypertension, CKD 4 who presented to [facility] with abdominal distention, nausea and vomiting, subsequently found to have a high-grade small bowel obstruction, secondary to the adenocarcinoma. SBO 2/2 adenocarcinoma Patient presenting with >2 weeks of nausea, vomiting, inability to keep down food CT: Infiltrative mass of cecum and ileocecal valve, 3.4 x 4.4 cm mass, resulting high-grade small bowel obstruction NGT was unable to be placed, patient refused reattempt. No vomiting at this time. Hemoconcentrated on admission, hemoglobin decreased to 11.5 with volume resuscitation no signs of active bleeding. Continue to trend. No leukocytosis, troponin negative, procalcitonin negative, covid negative CXR: No acute process Maintain NPO w/ D5+NSS @ 120cc/hr Continue Unasyn for PPX prior to anticipated surgery Surgery consulted.Anticipate going to the OR later this afternoon. Acute kidney injury superimposed on CKD4 Baseline Cr 1.64, presented with Cr 2.6 -- improving on day-to-day labs, today at 1.46 Likely prerenal in setting of n/v, high-grade SBO Received fluid resuscitation in ER, 1 L NSS, 1 L D5 NS Continue IVF as above BMP daily Avoid nephrotoxins Ileocecal valve adenocarcinoma Diagnosed 04/17/2021 - biopsy-proven, though patient had previously refused surgical intervention Follow-up with Dr. Gao and CCP in the past Was following with every 3 hours, CEA creasing from 5.3-15 at last visit Anticipate bowel resection as noted above, may follow-up with CCP as outpatient following this. Hypertension Patient reports previously on blood pressure medications, possibly metoprolol but she was normotensive to low without these and so these were all discontinued in the past Is not currently taking any home antihypertensives Normotensive at assessment, no additional meds at this time Asymptomatic bacteriuria Infected appearing UA Patient denies any dysuria, burning, urgency, hesitancy, or urinary change UA 2+ leukocyte esterase, increased white blood cells, 10-20 ProThelial cells, 1+ bacteria in ER, UC pending Follow, received antibiotics as above would not prescribe additional for this unless symptoms develop or signs of infection did receive empiric Zosyn in ER Hyperkalemia -- resolved with fluids Volume depleted, hemoconcentrated on admission Potassium 5.7 on admission, normalized on daily labs thereafter No chest pain, EKG changes JUAN management as above - continue mIVF DVT prophylaxis: Heparin due to JUAN Diet: N.p.o. for bowel obstruction Disposition: Medical/surgical CODE STATUS: Full code per patient, surrogate decision maker would be her miguel Marie available at [phone] (2) Adenocarcinoma of cecum: (3) Hyperkalemia: (4) Asymptomatic bacteriuria: (5) Acute kidney injury superimposed on CKD: (6) Carotid bruit: (7) CKD (chronic kidney disease) stage 4, GFR 15-29 ml/min: (8) Hypertension: Admission and Anticipated Discharge Date Admission Date: November 04, 2021 Supervising Physician Co-Signing Physician Notes I personally examined the patient and verified all wade points of history and exam, discussed case, and agree with decision making with Dr Saunders feeling OK - ready for surgery. pt/significant other ask good questions about post op recovery that i answer to the best of my ability vitals noted nad heent nc at mmm breathing unlabored no accessory muscles good effort skin no rashes no pallor or icterus SBO - related to cancer - for resection today. otherwise as above Subjective Feeling pretty lousy this morning. A lot of nausea. Thankfully not too much abdominal pain. Endorses passing a little bit of gas and having a small BM last night. No lightheadedness/dizziness. No CP, palpitations, SOB. Looking forward to surgery this afternoon. Review of Systems Review of Systems: as per HPI Physical Exam Physical Exam: General: Thin and ill appearing 80yoF in mild distress secondary to nausea and vomiting. Emesis bag at bedside. HEENT: NCAT. MMM appear dry. Cardiac: Normal rate and regular rhythm; S1 and S2 present with no murmurs, rubs, or gallops. Pulmonary: Good respiratory effort with symmetric expansion of the chest. No use of accessory muscles. Lungs were clear to auscultation bilaterally with no crackles or wheezes. Abdominal: Hypoactive BS. Abdomen is moderately distended but without TTP, rebound, or guarding. Extremities: Upper and lower extremities are warm and well perfused. Results & Data Results & Data ([facility]) Vital Signs (Past 12 Hours) Vital Signs Temp Pulse Resp BP Pulse Ox 11/06/21 07:25 36.5 C 87 16 131/79 98 11/05/21 21:55 36.6 C 83 14 108/70 97 Resident Activity Tracking Resident Involvement: Resident Care Provided Care Provided: Adult Hospital Medicine (1) Hypertension Hypertension type: unspecified Qualified Code(s): I10 - Essential (primary) hypertension
--- NOTE | 2021-11-06 08:57 | Surgery Progress Note ---
Date of Service November 06, 2021 Assessment & Plan (1) Adenocarcinoma of cecum: Plan: Patient here w/ SBO 2/2 known adenocarcinoma of the cecum Labs pending for this AM, but yesterday's showed improvement in electrolytes Pt has refused NGT since admission She is still having + nausea/vomiting, abdominal pain We discussed with patient the option of taking her to the OR today for laparoscopic assisted R hemicolectomy based on availability. She wishes to speak with either her boyfriend or son before officially confirming, but appears willing to proceeding today We have tentatively placed her on the schedule for this afternoon and will await to hear back from pt regarding consent. Procedure would be performed by Dr. Corbin. Admission and Anticipated Discharge Date Admission Date: November 04, 2021 Supervising Physician Co-Signing Physician Notes Patient seen and examined, labs and imaging reviewed, agree with above. 80-year-old female known to me from prior visit for colon cancer at her ileocecal valve. I saw her in March and she was thinking about her options. Despite multiple attempts by her office to reach out to her she was lost to follow-up. She presented over the weekend completely obstructed from the mass. Otherwise no major issues. Her electrolytes have improved and her creatinine is downtrending. On exam she is afebrile with stable vitals. Her abdomen is distended nontender. Personally reviewed her CT scan and note bowel obstruction with a transition point at the ileocecal valve and the location of the known tumor. Patient is now amenable to surgery. Plan for laparoscopic assisted right hemicolectomy, possible open, possible ostomy Risk the procedure were discussed to include but not limited to bleeding, infection, conversion open, demonstrating structures, leak, abscess, need for future more extensive surgery, and the risks of anesthesia Cefoxitin preop Subjective Patient resting in bed, with + emesis in bag. Said she didn't vomit at all yesterday, but has been in small amount this AM. She is passing flatus. Thinks she had a BM yesterday. Having + belly pain. Physical Exam Gastrointestinal (Abdomen): Inspection/Auscultation: + abdomen distended Percussion/Palpation: abdomen soft Results & Data ([facility]) Vital Signs (Past 12 Hours) Vital Signs Temp Pulse Resp BP Pulse Ox 11/06/21 07:25 36.5 C 87 16 131/79 98 11/05/21 21:55 36.6 C 83 14 108/70 97 PG Care Time/CCT Total # of Minutes Spent Total Time Spent with Patient: Total time spent is greater than 50% in coordination of care (as documented) at patient's floor/unit and/or counseling patient: Coding Level of Care Code 30194 Subseq Hosp Care Lvl 1 Diagnoses Adenocarcinoma of cecum C18.0
[2021-11-06 09:19] LABS: Basophils # (auto) 0.01 K/uL (0-0.2); Basophils % (auto) 0.2 %; Eosinophils # (auto) 0.02 K/uL (0-0.5); Eosinophils % (auto) 0.3 %; Hematocrit (blood only) 37.5 % (37-47); Hemoglobin 12.1 g/dL (12.0-16.0); Immature Granulocytes # (auto) 0.03 K/uL (0.00-0.02); Immature Granulocytes % (auto) 0.5 %; Lymphocytes # (auto) 1.36 K/uL (1.2-3.4); Lymphocytes % (auto) 20.8 %; Mean Corpuscular Hemoglobin 29.4 pg (25-34); Mean Corpuscular Hgb Conc 32.3 g/dL (32-36); Mean Corpuscular Volume 91.2 fL (80-100); Mean Platelet Volume 11.3 fL (7.4-10.4); Monocytes # (auto) 0.49 K/uL (0.11-0.59); Monocytes % (auto) 7.5 %; Neutrophils # (auto) 4.62 K/uL (1.4-6.5); Neutrophils % (auto) 70.7 %; Platelet Count 241 K/uL (130-400); RDW Coefficient of Variation 16.3 % (11.5-14.5); RDW Standard Deviation 54.3 fL (36.4-46.3); Red Blood Count 4.11 M/uL (4.2-5.4); White Blood Count 6.53 K/uL (4.8-10.8)
[2021-11-06 09:51] LABS: Anion Gap 10 (3-11); BUN Creatinine Ratio 41.8 (10-20); Blood Urea Nitrogen 61 mg/dl (6-23); Calcium 6.9 mg/dl (8.5-10.1); Carbon Dioxide 14 mmol/L (21-32); Chloride 121 mmol/L (98-107); Creatinine Clr Calc Pharmacy 20.5 ml/min; Est GFR (African American) 38.7 ml/min; Est GFR (Non-African American) 33.4 ml/min; Glucose 103 mg/dl (70-99(Fasting)); Sodium 145 mmol/L (136-145)
[2021-11-06] MEDS ORDERED: AMPICILLIN/SULBACTAM SOD 1,500 MG in 0.9 % SODIUM CHLORIDE 100 ML IV SCH (11:00)
[2021-11-06] MEDS ORDERED: GLYCOPYRROLATE 0.2 MG/ML VIAL ONE (11:43)
[2021-11-06] MEDS ORDERED: PROPOFOL IV EMULSION 10 MG/ML 20 ML VIAL IV ONE (11:43)
[2021-11-06] MEDS ORDERED: NEOSTIGMINE METHYLSULFATE 1 MG/ML 10ML VIAL ONE (11:43)
[2021-11-06] MEDS ORDERED: LIDOCAINE 2% 2 ML VIAL/AMP(20MG/ML) INFIL ONE (11:43)
[2021-11-06] MEDS ORDERED: DEXAMETHASONE SOD INJ 4 MG/ML VIAL ONE (11:43)
[2021-11-06] MEDS ORDERED: fentaNYL citrate 100 MCG/2 ML VIAL ONE (11:43)
[2021-11-06] MEDS ORDERED: ONDANSETRON INJ 2 MG/ML 2 ML VIAL ONE (11:43)
[2021-11-06] MEDS ORDERED: ePHEDrine sulfate 50 MG/ML AMP IV PRN (12:31)
[2021-11-06] MEDS ORDERED: ONDANSETRON INJ 2 MG/ML 2 ML VIAL IV PRN (12:31)
[2021-11-06] MEDS ORDERED: ATROPINE SULFATE 0.1 MG/ML 10ML SYR IV PRN (12:31)
--- NOTE | 2021-11-06 12:37 | Anesthesiology Consultation ---
Date of Service November 06, 2021 Assessment & Plan (1) Encounter for pre-operative examination: Chart Review Chart Review: Acceptable Risk for Surgery and Patient NOT seen in Pre Admission Testing Consults Requested none History Surgery Operation Date: 11/06/21 13:15 Proposed Procedures p Right Laparoscopic Hemicolectomy, Possible Open - Ronal Corbin DO, FACS Height/Weight Height: 5 ft Weight: 43 kg Allergies Allergy/AdvReac Type Severity Reaction Status Date / Time No Known Allergies Allergy Verified 11/04/21 15:08 Medications Home Medications Medication Instructions Recorded Confirmed Last Taken acetaminophen 500 mg tablet 1,000 mg PO Q6H PRN 04/16/21 11/04/21 04/16/21 06:30 (Tylenol Extra Strength) 1000 mg Active Medications Generic Name Dose Route Start Last Admin Trade Name Freq PRN Reason Stop Dose Admin Heparin Sodium (Porcine) 5,000 units 11/04/21 22:00 11/06/21 05:15 Heparin Sod 5,000 Unit/0.5 Ml Vial SQ 12/04/21 21:59 5,000 units Q8 PARUL Administration Dextrose/Sodium Chloride 1,000 mls @ 125 mls/hr 11/05/21 08:15 11/06/21 12:05 D5w And Nss IV 12/05/21 08:14 125 mls/hr .Q8H PARUL Infusion Ampicillin Sodium/Sulbactam 104 mls @ 200 mls/hr 11/06/21 11:00 11/06/21 12:05 Sodium 1,500 mg/ Sodium IV 11/07/21 22:59 Infused Chloride Q12H PARUL Infusion Protocol Morphine Sulfate 1 mg 11/05/21 15:42 11/06/21 10:58 Morphine Sulfate 2 Mg/Ml Carp IV 11/19/21 15:41 1 mg Q6H PRN Administration Pain Ondansetron HCl 4 mg 11/04/21 19:02 11/06/21 06:43 Ondansetron Inj 2 Mg/Ml 2 Ml Vial IV 12/04/21 19:01 4 mg Q6H PRN Administration Nausea Past Medical History Medical History (Updated 11/06/21 @ 12:44 by Rico Purdy MD) Adenocarcinoma of cecum Anemia Broken ankle Carotid bruit CKD (chronic kidney disease) stage 4, GFR 15-29 ml/min Hypertension SBO (small bowel obstruction) Hospitalist note 11/06/21: SBO 2/2 adenocarcinoma Patient presenting with >2 weeks of nausea, vomiting, inability to keep down food CT: Infiltrative mass of cecum and ileocecal valve, 3.4 x 4.4 cm mass, r esulting high-grade small bowel obstruction NGT was unable to be placed, patient refused reattempt. No vomiting at this time. Hemoconcentrated on admission, hemoglobin decreased to 11.5 with volume resuscitation no signs of active bleeding. Continue to trend. No leukocytosis, troponin negative, procalcitonin negative, covid negative CXR: No acute process. Exercise / Class Metabolic Activity III < 4 Walking/Shop/Light housework Past Family History Family History Father Diabetes Mother Kidney disease Past Surgical History Surgical History H/O section H/O colonoscopy History of PONV No Hx of PONV and No Hx of Motion Sickness Social History Smoking Status: Former smoker Do You Dip or Chew Tobacco: No Hx Alcohol Use: No Alcohol type: beer alcohol intake frequency: a few times a month Hx Substance Use: No Physical Exam Vital Signs Last Vital Signs Temp 36.5 C 11/06/21 07:25 Pulse 87 11/06/21 07:25 Resp 16 11/06/21 07:25 BP 131/79 11/06/21 07:25 Pulse Ox 98 11/06/21 07:25 Testing Laboratory Results 11/06/21 08:39 11/06/21 10:04 Urine Color Yellow 11/04/21 13:15 Urine Appearance Clear (Clear) 11/04/21 13:15 Urine pH 5.0 (4.5-7.5) 11/04/21 13:15 Ur Specific [place] 1.019 (1.000-1.030) 11/04/21 13:15 Urine Protein Negative (Negative) 11/04/21 13:15 Urine Glucose (UA) Negative (Negative) 11/04/21 13:15 Urine Ketones Trace (Negative) H 11/04/21 13:15 Urine Nitrite Negative (Negative) 11/04/21 13:15 Ur Leukocyte Esterase 2+ (Negative) H 11/04/21 13:15 Urine WBC (Auto) >30 /hpf (0-5) H 11/04/21 13:15 Urine RBC (Auto) 0-4 /hpf (0-4) 11/04/21 13:15 U Hyaline Cast (Auto) 1-5 /lpf (0-5) 11/04/21 13:15 U Epithel Cells (Auto) 10-20 /lpf (0-5) H 11/04/21 13:15 Urine Bacteria (Auto) 1+ (Negative) H 11/04/21 13:15 11/04/21 13:15 Urine Culture - Final Urine,Clean Catch More than three types of organisms present, all high counts mixed probable skin jennifer - No further identifications or sensitivities to follow. 11/04/21 14:58 Aerobic Blood Culture - Preliminary Blood No growth in Aerobic bottle after 24 hours. Anaerobic Blood Culture - Preliminary No growth in Anaerobic bottle after 24 hours. 11/04/21 14:36 Aerobic Blood Culture - Preliminary Blood No growth in Aerobic bottle after 24 hours. Anaerobic Blood Culture - Preliminary No growth in Anaerobic bottle after 24 hours. Electrocardiogram Date: 11/04/21 DICTATED BY:Kaveh Mancia MD Test Reason : Blood Pressure : / mmHG Vent. Rate : 105 BPM Atrial Rate : 105 BPM P-R Int : 196 ms QRS Dur : 072 ms QT Int : 342 ms P-R-T Axes : 085 -25 091 degrees QTc Int : 452 ms Poor data quality, interpretation may be adversely affected Sinus tachycardia with Premature supraventricular complexes Septal infarct , age undetermined Nonspecific T wave abnormality Abnormal ECG When compared with ECG of 18-APR-2021 13:39, T wave inversion now evident in Lateral leads Criteria for Inferior infarct no longer present Confirmed by Kaveh Mancia ([id number]) on 11/05/2021 6:44:39 AM Chest X-Ray Date: 11/04/21 XR chest 1V portable HISTORY: 80 years-old Female abd pain weakness acute generalized abdominal pain with weakness COMPARISON: CT abdomen and pelvis of same day, chest radiograph 04/16/2021 TECHNIQUE: Portable AP view of the chest FINDINGS: Cardiomediastinal and hilar silhouettes are within normal limits. No pneumothorax, pleural effusion or overt pulmonary edema. Mild subsegmental left basilar atelectasis. Skinfold projects over the lateral left hemithorax. Degenerative changes of the shoulders and spine. IMPRESSION: No acute process. Echocardiogram Date: 04/18/21 Normal LV size and systolic function EF 65-70% No RWMA Moderate LVH Mild LAD Mild MR Mildly elevated RV systolic pressure
[2021-11-06] MEDS ORDERED: ROCURONIUM BROMIDE 10 MG/ML 5 ML VIAL IV ONE (12:48)
[2021-11-06] MEDS ORDERED: SUCCINYLCHOLINE CHLORIDE 20 MG/ML 10 ML VIAL IV ONE (12:48)
[2021-11-06] MEDS ORDERED: BUPIVACAINE 0.5 % 5 MG/1 ML MPF 30ML VIAL ONE (12:58)
[2021-11-06] MEDS ORDERED: BUPIVACAINE LIPOSOME 1.3% 266 MG/20 ML VIAL ONE (12:59)
[2021-11-06] MEDS ORDERED: SUGAMMADEX SODIUM 200 MG/2 ML VIAL IV ONE (13:25)
[2021-11-06] MEDS ORDERED: ALBUMIN HUMAN 5% 12.5 GM/250 ML VIAL IV ONE (13:51)
[2021-11-06] MEDS ORDERED: cefOXitin 2,000 MG in DEXTROSE 5% 50 ML IV ONE (14:00)
--- NOTE | 2021-11-06 16:17 | Operative Report ---
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 Lateral to medial dissection performed, right hemicolectomy performed. Ileocolic controlled with 2-0 silk suture. [id number] functional end-to-end ileocolic anastomosis, no leak. Mesenteric defect closed with 2-0 Vicryl suture. Reentered laparoscopically, anastomosis appeared healthy with no twist in the bowel. Exparel injected. 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 She had been seen in clinic several months ago and offered surgical resection, patient was lost to follow-up despite multiple attempts to contact. Patient presented over the weekend obstructed. Her electrolytes have been corrected. Plan for laparoscopic assisted right hemicolectomy, possible open, possible ostomy. The risks of the procedure were discussed, all questions were answered, and the patient agreed to proceed with surgery as planned. Description of Procedure The patient was properly identified, consented, and taken to the operating room where she was placed in the supine position. General endotracheal anesthesia was induced. SCDs and a safety belt were placed. Preoperative antibiotics were administered. NG tube and a Chang catheter was placed. The patient's abdomen was prepped and draped in the standard sterile fashion. Surgical timeout was performed and all parties were in agreement that this was the correct patient and procedure to be performed and we continued as planned. A vertical midline infraumbilical incision was made with electrocautery and deepened down to the fascia with blunt dissection. The base of the umbilicus was grasped with a Татьяна. The Татьяан was elevated towards the ceiling and the fascia was incised with a knife. Stay sutures were placed on either side of the midline. The Fe trocar was then placed and the abdomen insufflated with carbon dioxide which the patient tolerated without incident. The laparoscope was inserted and the abdomen inspected. No damage from initial trocar placement was noted. No evidence of metastatic disease or other abnormalities were noted. Next, 5 mm ports were then placed in the midline just above the pubic symphysis with care not to damage the bladder and in the left lower quadrant with care not to damage the epigastric vessels. An additional 5 mm port was placed in the upper abdomen just off the midline to assist with retraction. The patient was placed in Trendelenburg position and the rotated towards the left. The small bowel was very dilated secondary to the obstruction. The transition point was obvious in the right lower quadrant at the ileocolic junction. The small bowel was swept out of the way. The cecum was then grasped and elevated towards the anterior abdominal wall revealing the ileocolic vascular pedicle. Unfortunately, due to the dilated small bowel we are unable to perform a medial to lateral dissection. A lateral to medial dissection was performed. We began by taking down the white line of Toldt along the cecum and ascending colon. Hepatic flexure was taken down using the Sonicision. The terminal ileum was dissected away from the abdominal wall. The colon and small bowel and mesentery were gently dissected away from the retroperitoneal structures. At this point the cecum appeared to reach easily to the anterior abdominal wall, and we decided to exteriorize the colon. Laparoscopy was ceased and the infraumbilical incision was extended inferiorly for a total length of approximately 7 cm. The wound protector was placed within the wound after the fascia was opened and then the colon was exteriorized. The colon reached easily as did the small bowel. A window was created in the mesentery and the ileum approximately 20 cm from the IC valve, and the small bowel was divided using a purple loaded endoscopic EVETTE stapler. The colon was then divided using a purple loaded endoscopic EVETTE stapler in the region of the proximal transverse colon. The mesentery was then divided using the Sonicision. The ileocolic vascular bundle was then controlled using right angle clamps. It was then divided. The specimen was excised and passed off the table. The ileocolic bundle was controlled with a 2-0 silk suture ligature. We then proceeded to create a [id number] functional end-to-end ileocolic anastomosis. Towels were laid around the incision. The corners of the staple lines on the antimesenteric border of both the ileum and colon were excised creating enterotomies. We were able to decompress the small bowel by inserting a pull sucker into the enterotomy and milking the large amount of succus towards it. The area just proximal to our colonic staple line appeared to be slightly dusky. This area was then excised. A 60 mm purple loaded stapler was placed in each enterotomy and fired x2 to create the anastomosis. The prior staple lines were then completely excised using sequential firings of a purple loaded stapler. The staple line was then reinforced with 3-0 silk Lembert sutures. There was no evidence of a leak, and the anastomosis appeared patent. The mesenteric defect was closed with a running 2-0 Vicryl suture. Hemostasis appeared to be good and the anastomosis appeared to have no twist in it. The anastomosis was allowed to drop back into the abdomen. The GelPort was placed and the abdomen was reentered laparoscopically and hemostasis appeared good. The anastomosis appeared to lay well on the right side of the abdomen and appeared to have good blood supply. Laparoscopy was ceased and the periumbilical wound protector was removed. The fascia and skin of the midline incision was injected with Exparel mixed with 0.5% Marcaine. The fascia was closed with a running 0 PDS suture x2 The wound was irrigated and the incision was then closed with interrupted 3-0 Vicryl deep dermal sutures followed by mora. The remaining port sites were closed with Monocryl. Dermabond was placed over these incisions. Sterile dressings were placed over the midline incision. The patient was extubated in the operating room and taken to the PACU where she recovered without apparent incident. All sponge, instrument, and needle counts were correct. The patient tolerated the procedure well. The colon specimen was sent to Pathology. The physician's social research assistant was present and scrubbed for the entirety of the case. He was critical in positioning the patient, prepping and draping, retraction and exposure, driving the laparoscope, resection of the specimen and creation of the anastomosis, closure the incisions, and placement of the dressings. I attest to the content of the Intraoperative Record and any orders documented therein. Any exceptions are noted below.
[2021-11-06] MEDS: fentaNYL citrate 100 MCG/2 ML VIAL IV PRN ×3 (16:30→16:40)
--- NOTE | 2021-11-06 16:30 | Billing Data ---
Date of Service November 06, 2021 Coding Level of Care Code 84615 Subseq Hosp Care Lvl 2
--- NOTE | 2021-11-06 16:42 | Anesthesiology Progress Note ---
Date of Service November 06, 2021 Anesthesia Post Procedure Vital Signs Vital Signs: Temp Pulse Pulse Resp BP Pulse Ox 11/06/21 16:30 96 H 20 177/79 H 100 11/06/21 16:20 97 H 18 178/87 H 99 11/06/21 16:14 36.5 C 95 H 14 176/84 H 100 11/06/21 13:04 37 C 94 H 20 151/78 H 93 11/06/21 07:25 36.5 C 87 16 131/79 98 11/05/21 21:55 36.6 C 83 14 108/70 97 Pain Intensity Bilateral Abdomen: Pain Intensity: 8 Transfer of Care Handoff Completed per policy Notes Mental Status: alert / awake / arousable Patient Amnestic to Procedure: Yes Nausea / Vomiting: adequately controlled Pain: adequately controlled Airway Patency, RR, SpO2: stable & adequate BP & HR: stable & adequate Hydration State: stable & adequate Anesthetic Complications: no major complications apparent
[2021-11-06] MEDS ORDERED: MoRPHine SULFATE 4 MG/ML 1 ML CARP\\VIAL IV PRN (17:08)
[2021-11-06] MEDS ORDERED: MoRPHine SULFATE 2 MG/ML CARP IV PRN (17:08)
[2021-11-06] MEDS: LACTATED RINGER'S 1,000 ML IV SCH (17:37)
[2021-11-06] MEDS: ACETAMINOPHEN 1,000 MG/100 ML VIAL IV SCH (17:40)
[2021-11-06 20:17] LABS: Hematocrit (blood only) 36.2 % (37-47); Hemoglobin 11.8 g/dL (12.0-16.0)
[2021-11-06] MEDS ORDERED: SODIUM CHLORIDE 0.9% 1000ML 1,000 ML IV ONE (20:45)
[2021-11-06] MEDS ORDERED: PIPERACILL/TAZOBAC CONSULT ACTIVE PRN (20:59)
[2021-11-06] MEDS ORDERED: PIPERACILLIN/TAZOBACTAM 4.5 GM in DEXTROSE 5% 100 ML IV SCH (21:00)
[2021-11-06] MEDS ORDERED: PIPERACILLIN/TAZOBACTAM 3.375 GM in DEXTROSE 5% 100 ML IV ONE (21:30)
[2021-11-07] MEDS: LACTATED RINGER'S 1,000 ML IV SCH ×3 (00:32→22:27)
[2021-11-07] MEDS: ACETAMINOPHEN 1,000 MG/100 ML VIAL IV SCH ×3 (01:18→19:00)
[2021-11-07] MEDS ORDERED: PIPERACILLIN/TAZOBACTAM 3.375 GM in DEXTROSE 5% 100 ML IV SCH (06:00)
[2021-11-07 06:04] LABS: Hematocrit (blood only) 35.6 % (37-47); Hemoglobin 11.5 g/dL (12.0-16.0); Immature Granulocytes # (auto) 0.03 K/uL (0.00-0.02); Immature Granulocytes % (auto) 0.4 %; Lymphocytes # (auto) 0.66 K/uL (1.2-3.4); Lymphocytes % (auto) 8.2 %; Mean Corpuscular Hemoglobin 29.9 pg (25-34); Mean Corpuscular Hgb Conc 32.3 g/dL (32-36); Mean Corpuscular Volume 92.7 fL (80-100); Monocytes # (auto) 0.22 K/uL (0.11-0.59); Monocytes % (auto) 2.7 %; Neutrophils # (auto) 7.13 K/uL (1.4-6.5); Neutrophils % (auto) 88.7 %; Platelet Count 211 K/uL (130-400); RDW Coefficient of Variation 16.6 % (11.5-14.5); RDW Standard Deviation 56.9 fL (36.4-46.3); Red Blood Count 3.84 M/uL (4.2-5.4); White Blood Count 8.04 K/uL (4.8-10.8)
[2021-11-07 06:26] LABS: Albumin Globulin Ratio 1.6 (0.9-2); Albumin Level 2.8 gm/dl (3.4-5.0); BUN Creatinine Ratio 28.6 (10-20); Bilirubin,Total 0.4 mg/dl (0.2-1.0); Calcium 7.4 mg/dl (8.5-10.1); Creatinine Clr Calc Pharmacy 19.4 ml/min; Est GFR (African American) 36.3 ml/min; Est GFR (Non-African American) 31.3 ml/min; Globulin 1.7 gm/dl (2.5-4.0); Potassium 3.4 mmol/L (3.5-5.1); Total Protein 4.5 gm/dl (6.0-8.3)
--- NOTE | 2021-11-07 06:59 | Hospitalist Progress Note ---
Date of Service November 07, 2021 Assessment & Plan (1) Adenocarcinoma of cecum: Plan: This is an 80-year-old female with a known history of ileocecal valve adenocarcinoma, hypertension, CKD 4 who presented to [facility] with abdominal distention, nausea and vomiting, subsequently found to have a high-grade small bowel obstruction, secondary to the adenocarcinoma. SBO 2/2 adenocarcinoma Patient presenting with >2 weeks of nausea, vomiting, inability to keep down food CT: Infiltrative mass of cecum and ileocecal valve, 3.4 x 4.4 cm mass, resulting high-grade small bowel obstruction s/p R-sided laparoscopic hemicolectomy on 11/07 by general surgery (Dr. Corbin) H&H stable -- will continue to monitor OK for sips per surgery Maintain NGT for now Transitioned to Zosyn last night. Will revert back to Unasyn - thankfully, no signs of smoldering infection at this time JUAN superimposed on CKD4 (BUN 44 / Cr 1.54) Baseline Cr 1.64, presented with Cr 2.6 -- improving on day-to-day labs, currently stable Likely prerenal in setting of previous n/v, high-grade SBO Continue LR @ 125cc/hr BMP daily Avoid nephrotoxins Ileocecal valve adenocarcinoma Diagnosed 04/17/2021 - biopsy-proven, though patient had previously refused surgical intervention Follow-up with Dr. Gao and CCP in the past Was following with every 3 hours, CEA creasing from 5.3-15 at last visit s/p R-sided laparoscopic hemicolectomy on 11/07 by general surgery (Dr. Corbin) Hypertension Patient reports previously on blood pressure medications, possibly metoprolol but she was normotensive to low without these and so these were all discontinued in the past Is not currently taking any home antihypertensives Normotensive at assessment, no additional meds at this time Asymptomatic bacteriuria Infected appearing UA Patient denies any dysuria, burning, urgency, hesitancy, or urinary change UA 2+ leukocyte esterase, increased white blood cells, 10-20 ProThelial cells, 1+ bacteria in ER, UC pending Follow, received antibiotics as above would not prescribe additional for this unless symptoms develop or signs of infection Hyperkalemia--resolved with fluids Volume depleted, hemoconcentrated on admission Potassium 5.7 on admission, normalized on daily labs thereafter No chest pain, EKG changes JUAN management as above - continue mIVF DVT prophylaxis: Heparin due to JUAN Diet: N.p.o. for bowel obstruction Disposition: Medical/surgical CODE STATUS: Full code per patient, surrogate decision maker would be her miguel Marie available at [phone] (2) Hyperkalemia: (3) Asymptomatic bacteriuria: (4) Acute kidney injury superimposed on CKD: (5) Carotid bruit: (6) CKD (chronic kidney disease) stage 4, GFR 15-29 ml/min: Admission and Anticipated Discharge Date Admission Date: November 04, 2021 Supervising Physician Co-Signing Physician Notes I personally examined the patient and verified all wade points of history and exam, discussed case, and agree with decision making with Dr Saunders \\ generally feeling well and pain well controlled overall vitals noted nad heent nc at mmm breathing unlabored no acccessory muscles good effort ost/msk R>L lower Tspine paraspinals high tone/decreased ROM - direct myofascial ("rib raising") improved. pt tolerated well SBO/cancer - post op, doing well somatic dysfunction thoracic region - OMT done above in attempt to improve /hasten return to bowel function otherwise as above Subjective Received report that overnight patient was diaphoretic and with temperatures in the mid-35 range. High-normal HR in the 90s. BPs stable. Lactate 2.5. H&H obtained at that time stable. Unasyn changed to Zosyn by OVN team. This AM: Feeling much better. No more belly pain. Looking forward to drinking juice. Not yet passing gas. No n/v. No CP, no SOB. No complaints otherwise. Review of Systems Review of Systems: as per HPI Physical Exam Physical Exam: General: Thin appearing 80yoF in NAD HEENT: NCAT. MMM appear dry. Cardiac: Normal rate and regular rhythm; S1 and S2 present with no murmurs, rubs, or gallops. Pulmonary: Good respiratory effort with symmetric expansion of the chest. No use of accessory muscles. Lungs were clear to auscultation bilaterally with no crackles or wheezes. Abdominal: Hypoactive BS. Abdomen is soft, nontender to palpation. Surgical dressing c/d/i Extremities: Upper and lower extremities are warm and well perfused. Results & Data Results & Data ([facility]) Vital Signs (Past 12 Hours) Vital Signs Temp Pulse Pulse Resp BP Pulse Ox 11/07/21 02:58 36.0 C L 97 H 14 139/66 98 11/06/21 23:03 35.6 C L 97 H 18 143/85 H 99 11/06/21 20:14 96 H 16 129/76 98 11/06/21 19:39 35.6 C L 11/06/21 19:01 34.7 C L 98 H 18 139/69 98 Resident Activity Tracking Resident Involvement: Resident Care Provided Care Provided: Adult Hospital Medicine
--- NOTE | 2021-11-07 07:51 | Surgery Progress Note ---
Date of Service November 07, 2021 Assessment & Plan (1) Adenocarcinoma of cecum: Plan: POD 1 lap assisted right colectomy H&H stable UOP adequate maintain NG for now, hope to remove soon OOB, can have sips Admission and Anticipated Discharge Date Admission Date: November 04, 2021 Supervising Physician Co-Signing Physician Notes pnt S&E, labs reviewed, agree with above. POD#1 lap right hemicolectomy for obstruction cecal mass. Doing well, minimal pain, no flatus. Abd soft, apropriately ttp. Dressing c/d/i. labs unremarkable. ng with moderate output. cont ng, ambulate, oobtc. d/c cleaning. Subjective no pain, c/o dry mouth Physical Exam Gastrointestinal (Abdomen): Inspection/Auscultation: + abdominal surgical incision (dressing dry); abdomen not distended Percussion/Palpation: abdomen soft UOP 300 NGT 300 Results & Data ([facility]) Vital Signs (Past 12 Hours) Vital Signs Temp Pulse Pulse Resp BP Pulse Ox 11/07/21 07:27 36.3 C L 74 18 136/78 97 11/07/21 02:58 36.0 C L 97 H 14 139/66 98 11/06/21 23:03 35.6 C L 97 H 18 143/85 H 99 11/06/21 20:14 96 H 16 129/76 98 PG Care Time/CCT Total # of Minutes Spent Total Time Spent with Patient: Total time spent is greater than 50% in coordination of care (as documented) at patient's floor/unit and/or counseling patient: Coding Level of Care Code None Diagnoses Adenocarcinoma of cecum C18.0
[2021-11-07] MEDS: POTASSIUM CHLORIDE / WTR 10 MEQ/100 ML PLCT IV SCH ×4 (10:42→16:32)
[2021-11-07] MEDS: AMPICILLIN/SULBACTAM SOD 1,500 MG in 0.9 % SODIUM CHLORIDE 100 ML IV SCH (13:58)
--- NOTE | 2021-11-07 17:29 | Billing Data ---
Date of Service November 07, 2021 Coding Level of Care Code 73053 Subseq Hosp Care Lvl 2
--- NOTE | 2021-11-07 17:30 | Hospitalist Progress Note ---
Date of Service November 07, 2021 Assessment & Plan Admission and Anticipated Discharge Date Admission Date: November 04, 2021 Results & Data Results & Data ([facility]) Vital Signs (Past 12 Hours) Vital Signs Temp Pulse Resp BP Pulse Ox 11/07/21 17:15 72 18 131/78 95 11/07/21 07:27 97.3 F L 74 18 136/78 97 PG Care Time/CCT Total # of Minutes Spent Total Time Spent with Patient: Total time spent is greater than 50% in coordination of care (as documented) at patient's floor/unit and/or counseling patient: Coding Level of Care Code None CPT Codes Musculoskeletal - Musculoskeletal: [address] 1-2 Body regions ([id number])
[2021-11-07] MEDS: HEPARIN SOD 5,000 UNIT/0.5 ML VIAL SQ SCH (22:23)
[2021-11-08] MEDS: AMPICILLIN/SULBACTAM SOD 1,500 MG in 0.9 % SODIUM CHLORIDE 100 ML IV SCH (00:58)
[2021-11-08] MEDS: ACETAMINOPHEN 1,000 MG/100 ML VIAL IV SCH ×3 (02:02→17:15)
[2021-11-08] MEDS: LACTATED RINGER'S 1,000 ML IV SCH ×3 (05:04→17:15)
[2021-11-08] MEDS: HEPARIN SOD 5,000 UNIT/0.5 ML VIAL SQ SCH ×3 (05:07→21:41)
--- NOTE | 2021-11-08 06:35 | Hospitalist Progress Note ---
Date of Service November 08, 2021 Assessment & Plan (1) Adenocarcinoma of cecum: Plan: This is an 80-year-old female with a known history of ileocecal valve adenocarcinoma, hypertension, CKD 4 who presented to [facility] [address] with abdominal distention, nausea and vomiting, subsequently found to have a high-grade small bowel obstruction, secondary to the adenocarcinoma. She is now s/p R-sided laparoscopic hemicolectomy on 11/07. SBO secondary to Adenocarcinoma Patient presenting with >2 weeks of nausea, vomiting, inability to keep down food CT: Infiltrative mass of cecum and ileocecal valve, 3.4 x 4.4 cm mass, resulting high-grade small bowel obstruction s/p R-sided laparoscopic hemicolectomy on 11/07 by general surgery (Dr. Corbin) H&H stable -- will continue to monitor OK for clears D/C NGT OK to d/c ABX Promote ISBs JUAN superimposed on CKD4 (BUN 44 / Cr 1.54) Baseline Cr 1.64, presented with Cr 2.6 -- improving on day-to-day labs, currently stable Likely prerenal in setting of previous n/v, high-grade SBO Discontinue IVF, promote PO intake BMP daily Avoid nephrotoxins Ileocecal valve adenocarcinoma Diagnosed 04/17/2021 - biopsy-proven, though patient had previously refused surgical intervention Follow-up with Dr. Gao and CCP in the past Was following with every 3 hours, CEA creasing from 5.3-15 at last visit s/p R-sided laparoscopic hemicolectomy on 11/07 by general surgery (Dr. Corbin) Hypertension Patient reports previously on blood pressure medications, possibly metoprolol but she was normotensive to low without these and so these were all discontinued in the past Normotensive at assessment, no additional meds at this time Asymptomatic bacteriuria Infected appearing UA on admission with LE, WBCs, 1+ bacteria Patient denies any dysuria, burning, urgency, hesitancy, or urinary change Perioperative ABX as above, otherwise no indication to treat at this time Hyperkalemia--resolved with fluids Volume depleted, hemoconcentrated on admission Potassium 5.7 on admission, normalized on daily labs thereafter No chest pain, EKG changes JUAN management as above - continue mIVF DVT prophylaxis: Heparin due to JUAN Diet: Clears per surgery Disposition: Medical/surgical CODE STATUS: Full code per patient, surrogate decision maker would be her miguel Marie available at [phone] (2) Hyperkalemia: (3) Asymptomatic bacteriuria: (4) Acute kidney injury superimposed on CKD: (5) Carotid bruit: (6) CKD (chronic kidney disease) stage 4, GFR 15-29 ml/min: Admission and Anticipated Discharge Date Admission Date: November 04, 2021 Supervising Physician Co-Signing Physician Notes I personally examined the patient and verified all wade points of history and exam, discussed case, and agree with decision making with Dr Saunders pain controlled passing flatus vitals noted nad heent nc at mmm breathing unlabored no acccessory muscles good effort ost/msk R>L lower Tspine paraspinals high tone/decreased ROM - direct myofascial ("rib raising") improved. pt tolerated well SBO/cancer - post op, doing well - NG to be dc'd, appreciate surgery input somatic dysfunction thoracic region - OMT done as above again in attempt to improve /hasten return to bowel function otherwise as above Subjective NAEO. Hypoglycemic to low 50s this morning, requiring IV dextrose. Asymptomatic throughout that time. No other complaints. Now passing gas. No nausea. Looking forward to getting NGT out. No CP/palpitations/SOB. Review of Systems Review of Systems: as per HPI Physical Exam Physical Exam: General: Thin appearing 80yoF in NAD HEENT: NCAT. NGT in place. Cardiac: Normal rate and regular rhythm; S1 and S2 present with no murmurs, rubs, or gallops. Pulmonary: Good respiratory effort with symmetric expansion of the chest. No use of accessory muscles. Lungs were clear to auscultation bilaterally with no crackles or wheezes. Abdominal: Hypoactive BS. Abdomen is soft, nontender to palpation. Surgical dressing c/d/i Extremities: Upper and lower extremities are warm and well perfused. Results & Data Results & Data ([facility]) Vital Signs (Past 12 Hours) Vital Signs Temp Pulse Resp BP Pulse Ox 11/07/21 22:24 36.3 C L 95 H 18 130/78 98 Resident Activity Tracking Resident Involvement: Resident Care Provided Care Provided: Adult [facility]
[2021-11-08 07:30] LABS: Hematocrit (blood only) 32.4 % (37-47); Hemoglobin 10.5 g/dL (12.0-16.0); Immature Granulocytes # (auto) 0.03 K/uL (0.00-0.02); Immature Granulocytes % (auto) 0.2 %; Lymphocytes # (auto) 1.14 K/uL (1.2-3.4); Lymphocytes % (auto) 8.9 %; Mean Corpuscular Hemoglobin 29.7 pg (25-34); Mean Corpuscular Hgb Conc 32.4 g/dL (32-36); Mean Corpuscular Volume 91.8 fL (80-100); Mean Platelet Volume 11.2 fL (7.4-10.4); Monocytes # (auto) 0.25 K/uL (0.11-0.59); Monocytes % (auto) 1.9 %; Neutrophils # (auto) 11.41 K/uL (1.4-6.5); Platelet Count 221 K/uL (130-400); RDW Coefficient of Variation 17.3 % (11.5-14.5); RDW Standard Deviation 57.8 fL (36.4-46.3); Red Blood Count 3.53 M/uL (4.2-5.4); White Blood Count 12.83 K/uL (4.8-10.8)
[2021-11-08 08:21] LABS: BUN Creatinine Ratio 24.7 (10-20); Calcium 8.1 mg/dl (8.5-10.1); Creatinine Clr Calc Pharmacy 18.5 ml/min; Est GFR (African American) 34.1 ml/min; Est GFR (Non-African American) 29.5 ml/min; Potassium 4.2 mmol/L (3.5-5.1)
[2021-11-08] MEDS ORDERED: GLUCAGON FOR INJ 1 MG VIAL SQ PRN (08:52)
[2021-11-08] MEDS ORDERED: GLUCOSE 40% GEL 15 GM TUBE PO PRN (08:52)
[2021-11-08] MEDS ORDERED: DEXTROSE 50% 50 ML SYRINGE IV PRN (08:52)
--- NOTE | 2021-11-08 12:53 | Surgery Progress Note ---
Date of Service November 08, 2021 Assessment & Plan (1) H/O hemicolectomy: Plan: POD#2 lap r hemicolectomy d/c ng, start clears, d/c cleaning, decrease ivf's. d/c abx. ambulate, oobtc, heparin sqtid, is Admission and Anticipated Discharge Date Admission Date: November 04, 2021 Subjective POD#2 lap R hemicolectomy for obstructing tumor. Passing flatus, no bm. drinking copious clears while NG tube in. no pain. Physical Exam Constitutional: WD/WN, vitals as above Gastrointestinal (Abdomen): normal bowel sounds, soft, nontender, no hepatosplenomegaly Inspection/Auscultation: + abdominal surgical incision (no infection) Results & Data ([facility]) Laboratory Results Laboratory Results - last 24 hr 11/08/21 11/08/21 11/08/21 06:56 06:56 08:53 WBC 12.83 H RBC 3.53 L Hgb 10.5 L Hct 32.4 L MCV 91.8 MCH 29.7 MCHC 32.4 RDW Std Deviation 57.8 H RDW Coeff of Stevie 17.3 H Plt Count 221 MPV 11.2 H Immature Gran % (Auto) 0.2 Neut % (Auto) 89.0 Lymph % (Auto) 8.9 [place] % (Auto) 1.9 Eos % (Auto) 0.0 Baso % (Auto) 0.0 Neut # (Auto) 11.41 H Lymph # (Auto) 1.14 L [place] # (Auto) 0.25 Eos # (Auto) 0.00 Baso # (Auto) 0.00 Immature Gran # (Auto) 0.03 H Sodium 143 Potassium 4.2 D Chloride 116 H Carbon Dioxide 19 L Anion Gap 8 BUN 40 H Creatinine 1.62 H Est Cr Clr Drug Dosing 18.5 Est GFR ( Amer) 34.1 Est GFR (Non-Af Amer) 29.5 BUN/Creatinine Ratio 24.7 H Glucose 52 L* POC Glucose 48 L* Calcium 8.1 L Nasal Screen MRSA (PCR) 11/08/21 11/08/21 09:20 Unknown WBC RBC Hgb Hct MCV MCH MCHC RDW Std Deviation RDW Coeff of Stevie Plt Count MPV Immature Gran % (Auto) Neut % (Auto) Lymph % (Auto) [place] % (Auto) Eos % (Auto) Baso % (Auto) Neut # (Auto) Lymph # (Auto) [place] # (Auto) Eos # (Auto) Baso # (Auto) Immature Gran # (Auto) Sodium Potassium Chloride Carbon Dioxide Anion Gap BUN Creatinine Est Cr Clr Drug Dosing Est GFR ( Amer) Est GFR (Non-Af Amer) BUN/Creatinine Ratio Glucose POC Glucose 158 H Calcium Nasal Screen MRSA (PCR) Negative PG Care Time/CCT Total # of Minutes Spent Total Time Spent with Patient: Total time spent is greater than 50% in coordination of care (as documented) at patient's floor/unit and/or counseling patient: Coding Level of Care Code None Diagnoses H/O hemicolectomy Z90.49
--- NOTE | 2021-11-08 14:41 | Billing Data ---
Date of Service November 08, 2021 Coding Level of Care Code 27568 Subseq Hosp Care Lvl 2
--- NOTE | 2021-11-08 14:42 | Hospitalist Progress Note ---
Date of Service November 08, 2021 Assessment & Plan Admission and Anticipated Discharge Date Admission Date: November 04, 2021 PG Care Time/CCT Total # of Minutes Spent Total Time Spent with Patient: Total time spent is greater than 50% in coordination of care (as documented) at patient's floor/unit and/or counseling patient: Coding Level of Care Code None CPT Codes Musculoskeletal - Musculoskeletal: [address] 1-2 Body regions ([id number])
[2021-11-09] MEDS: LACTATED RINGER'S 1,000 ML IV SCH ×2 (01:34→09:04)
[2021-11-09] MEDS: ACETAMINOPHEN 1,000 MG/100 ML VIAL IV SCH ×2 (01:34→08:08)
[2021-11-09 06:01] LABS: Eosinophils # (auto) 0.04 K/uL (0-0.5); Eosinophils % (auto) 0.4 %; Hematocrit (blood only) 25.1 % (37-47); Hemoglobin 8.3 g/dL (12.0-16.0); Immature Granulocytes # (auto) 0.02 K/uL (0.00-0.02); Immature Granulocytes % (auto) 0.2 %; Lymphocytes # (auto) 1.09 K/uL (1.2-3.4); Lymphocytes % (auto) 12.2 %; Mean Corpuscular Hemoglobin 29.9 pg (25-34); Mean Corpuscular Hgb Conc 33.1 g/dL (32-36); Mean Corpuscular Volume 90.3 fL (80-100); Mean Platelet Volume 10.4 fL (7.4-10.4); Monocytes # (auto) 0.11 K/uL (0.11-0.59); Monocytes % (auto) 1.2 %; Neutrophils # (auto) 7.69 K/uL (1.4-6.5); Platelet Count 200 K/uL (130-400); RDW Coefficient of Variation 17.1 % (11.5-14.5); RDW Standard Deviation 56.7 fL (36.4-46.3); Red Blood Count 2.78 M/uL (4.2-5.4); White Blood Count 8.95 K/uL (4.8-10.8)
[2021-11-09] MEDS: HEPARIN SOD 5,000 UNIT/0.5 ML VIAL SQ SCH ×3 (06:23→21:42)
[2021-11-09 06:40] LABS: BUN Creatinine Ratio 24.8 (10-20); Calcium 7.1 mg/dl (8.5-10.1); Creatinine Clr Calc Pharmacy 21.2 ml/min; Est GFR (African American) 40.4 ml/min; Est GFR (Non-African American) 34.8 ml/min; Potassium 3.5 mmol/L (3.5-5.1)
--- NOTE | 2021-11-09 07:37 | Hospitalist Progress Note ---
Date of Service November 09, 2021 Assessment & Plan (1) Adenocarcinoma of cecum: Plan: This is an 80-year-old female with a known history of ileocecal valve adenocarcinoma, hypertension, CKD 4 who presented to [facility] with abdominal distention, nausea and vomiting, subsequently found to have a high-grade small bowel obstruction, secondary to the adenocarcinoma. She is now s/p R-sided laparoscopic hemicolectomy on 11/07. SBO secondary to Adenocarcinoma Patient presenting with >2 weeks of nausea, vomiting, inability to keep down food CT: Infiltrative mass of cecum and ileocecal valve, 3.4 x 4.4 cm mass, resulting high-grade small bowel obstruction s/p R-sided laparoscopic hemicolectomy on 11/07 by general surgery (Dr. 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 Gao and CCP in the past Was following with every 3 hours, CEA creasing from 5.3-15 at last visit s/p R-sided laparoscopic hemicolectomy on 11/07 by general surgery (Dr. Corbin) Hypertension Patient reports previously on blood pressure medications, possibly metoprolol but she was normotensive to low without these and so these were all discontinued in the past Normotensive at assessment, no additional meds at this time Asymptomatic bacteriuria Infected appearing UA on admission with LE, WBCs, 1+ bacteria Patient denies any dysuria, burning, urgency, hesitancy, or urinary change Perioperative ABX as above, otherwise no indication to treat at this time -- since completed course Hyperkalemia--resolved with fluids Volume depleted, hemoconcentrated on admission Potassium 5.7 on admission, normalized on daily labs thereafter No chest pain, EKG changes JUAN management as above DVT prophylaxis: Heparin due to JUAN Diet: Low Fiber per surgery Disposition: Medical/surgical CODE STATUS: Full code per patient, surrogate decision maker would be her miguel Marie available at [phone] (2) Hyperkalemia: (3) Asymptomatic bacteriuria: (4) Acute kidney injury superimposed on CKD: (5) Carotid bruit: (6) CKD (chronic kidney disease) stage 4, GFR 15-29 ml/min: Admission and Anticipated Discharge Date Admission Date: November 04, 2021 Supervising Physician Co-Signing Physician Notes I personally examined the patient and verified all wade points of history and exam, discussed case, and agree with decision making with Dr Carcamo no pain passing flatus and BM vitals noted nad heent nc at mmm breathing unlabored no acccessory muscles good effort SBO/cancer - post op, doing well - tolerating diet. pain zero. bowel function returned otherwise as above Subjective Patient evaluated at the bedside. Feeling well this morning. Notes she has been eating her liquid diet well and has been passing gas. Denies any bowel movements at this time, but denies abdominal pain/discomfort. Denies fever, chills, SOB, chest pain. Review of Systems Review of Systems: All systems reviewed & are unremarkable except as noted in Subjective Physical Exam Physical Exam: General: Thin appearing 80yoF in NAD HEENT: NCAT. NGT in place. Cardiac: Normal rate and regular rhythm; S1 and S2 present with no murmurs, rubs, or gallops. Pulmonary: Good respiratory effort with symmetric expansion of the chest. No use of accessory muscles. Lungs were clear to auscultation bilaterally with no crackles or wheezes. Abdominal: Normoactive BS. Abdomen is soft, nontender to palpation. Surgical incision clean, dry, mora intact. Extremities: Upper and lower extremities are warm and well perfused. Results & Data Results & Data ([facility]) Vital Signs (Past 12 Hours) Vital Signs Temp Pulse Resp BP Pulse Ox 11/08/21 21:42 36.7 C 82 16 138/65 96 Resident Activity Tracking Resident Involvement: Resident Care Provided Care Provided: Adult Hospital Medicine
[2021-11-09 10:55] LABS: Hemoglobin 9.8 g/dL (12.0-16.0)
--- NOTE | 2021-11-09 11:52 | Surgery Progress Note ---
Date of Service November 09, 2021 Assessment & Plan (1) Adenocarcinoma of cecum: Plan: POD 3 colectomy full liquids, low fiber tonight or in AM H&H likely dilutional, creatine baseline, consider lasix ambulate, plans to return home Admission and Anticipated Discharge Date Admission Date: November 04, 2021 Supervising Physician Co-Signing Physician Notes Pnt S&E, agree with above. POD#3 lap right hemicolectomy for obstructive adenocarcinoma. passing flatus, having loose bm's. H&H this morning 04/18, repeat 06/23. afvss, incision c/d/i. advance diet to fulls, low fiber likely today or tomorrow. protein shakes. path t3n2, will likely recommend chemo but will discuss as outpnt. will likely be okay for d/c from surgery standpoint in next few days. Dr. Mendes coverning over weekend. Subjective liquid BM, tolerating clear liquids, not amb yet Physical Exam Gastrointestinal (Abdomen): Inspection/Auscultation: + abdominal surgical incision (no erythema or drainage); abdomen not distended Results & Data ([facility]) Vital Signs (Past 12 Hours) Vital Signs Temp Pulse Resp BP Pulse Ox 11/09/21 07:45 36.4 C L 78 16 147/81 H 97 PG Care Time/CCT Total # of Minutes Spent Total Time Spent with Patient: Total time spent is greater than 50% in coordination of care (as documented) at patient's floor/unit and/or counseling patient: Coding Level of Care Code None Diagnoses Adenocarcinoma of cecum C18.0
--- NOTE | 2021-11-09 17:27 | Billing Data ---
Date of Service November 09, 2021 Coding Level of Care Code 23709 Subseq Hosp Care Lvl 2
--- NOTE | 2021-11-09 17:28 | Billing Data ---
Date of Service November 09, 2021 Coding Level of Care Code 65559 Subseq Hosp Care Lvl 2
[2021-11-10] MEDS: HEPARIN SOD 5,000 UNIT/0.5 ML VIAL SQ SCH ×3 (06:26→20:36)
[2021-11-10 08:11] LABS: Eosinophils # (auto) 0.09 K/uL (0-0.5); Eosinophils % (auto) 1.1 %; Hematocrit (blood only) 32.8 % (37-47); Hemoglobin 10.7 g/dL (12.0-16.0); Immature Granulocytes # (auto) 0.04 K/uL (0.00-0.02); Immature Granulocytes % (auto) 0.5 %; Lymphocytes # (auto) 1.62 K/uL (1.2-3.4); Lymphocytes % (auto) 19.1 %; Mean Corpuscular Hemoglobin 29.7 pg (25-34); Mean Corpuscular Hgb Conc 32.6 g/dL (32-36); Mean Corpuscular Volume 91.1 fL (80-100); Mean Platelet Volume 11.1 fL (7.4-10.4); Monocytes # (auto) 0.14 K/uL (0.11-0.59); Monocytes % (auto) 1.7 %; Neutrophils # (auto) 6.58 K/uL (1.4-6.5); Neutrophils % (auto) 77.6 %; Platelet Count 248 K/uL (130-400); RDW Coefficient of Variation 17.7 % (11.5-14.5); RDW Standard Deviation 59.2 fL (36.4-46.3); White Blood Count 8.47 K/uL (4.8-10.8)
[2021-11-10 08:35] LABS: BUN Creatinine Ratio 22.6 (10-20); Calcium 7.4 mg/dl (8.5-10.1); Creatinine Clr Calc Pharmacy 22.5 ml/min; Est GFR (African American) 43.3 ml/min; Est GFR (Non-African American) 37.4 ml/min; Potassium 3.7 mmol/L (3.5-5.1)
[2021-11-10] MEDS: CARBOHYDRATES FOR HYPOGLYCEMIA PO PRN ×3 (08:41→09:20)
--- NOTE | 2021-11-10 08:54 | Hospitalist Progress Note ---
Date of Service November 10, 2021 Assessment & Plan (1) Adenocarcinoma of cecum: Plan: This is an 80-year-old female with a known history of ileocecal valve adenocarcinoma, hypertension, CKD 4 who presented to [facility] with abdominal distention, nausea and vomiting, subsequently found to have a high-grade small bowel obstruction, secondary to the adenocarcinoma. She is now s/p R-sided laparoscopic hemicolectomy on 11/07. SBO secondary to Adenocarcinoma: - Diagnosed with ileocecal valve adenocarcinoma in 04/17/2021; patient refused intervention at that time. - Presented with inability to tolerate adequate PO x2 weeks with N/V. - CTAP: Infiltrative mass of cecum and ileocecal valve, resulting in high-grade small bowel obstruction. - s/p R-sided laparoscopic hemicolectomy on 11/07 by Gen Surg (Dr. Corbin). - Tolerating Low Fiber diet today, will continue. - To continue PT and OT while admitted. Has done well to date and most recent recommendations for home with home services. Hypoglycemia: - Several episodes of hypoglycemia while not on regular diet, including this AM. Resolved with juice. - No history of hypoglycemia per patient or chart. - Suspect this is due to poor PO intake pre and post procedure; suspect will improve as patient's diet improves. - Hypoglycemia protocol in place, will continue to monitor. JUAN superimposed on CKD4: - Resolved; creatinine 1.3 this AM. - Baseline Cr ~1.5, presented with Cr 2.6; prerenal JUAN improved with IV->PO fluids. - Encourage continued PO intake of fluids. - BMP daily while admitted. - Avoid nephrotoxins. Hypertension: - History of, though not on medications at this time. - BP goal for age, no interventions to be performed unless this changes. Asymptomatic bacteriuria: - UA on admission with LE, WBCs, 1+ bacteria. - Patient denies any UTI symptoms. - Perioperative Abx received, otherwise no indication for treatment of asymp tomatic bacteruria. Hyperkalemia: - Resolved. - K 5.7 on admission in the setting of poor PO intake and volume depletion. - Resolved on follow up labs after receiving IV fluids; K today 3.7. - JUAN management as above. DVT prophylaxis: Heparin Diet: Low Fiber Disposition: Med/Surg CODE STATUS: Full Code; surrogate decision maker is miguel Marie ([phone]) (2) Hyperkalemia: (3) Asymptomatic bacteriuria: (4) Acute kidney injury superimposed on CKD: (5) CKD (chronic kidney disease) stage 4, GFR 15-29 ml/min: (6) Hypoglycemia: Admission and Anticipated Discharge Date Admission Date: November 04, 2021 Supervising Physician Co-Signing Physician Notes I personally examined the patient and verified all wade points of history and exam, discussed case, and agree with decision making with Dr Dona nicholson good eating well passing flatus and BM getting stronger - would like to get a little stronger before going home vitals noted nad heent nc at mmm breathing unlabored no accessory muscles good effort SBO/cancer - post op, doing well - tolerating diet. pain well controlled. bowel function returned. getting stronger. home soon- d/w pt her goal of getting stronger before home is rational - but want to balance off the fact that typically patients start to get weaker when in hospital too long - continue for now as she is making gains. otherwise as above Subjective Patient continues to have good pain control with minimal need for pain medications. Was able to ambulate to the bathroom this morning without pain, and tolerating low fiber diet this morning well without increased pain or nausea. This AM noted to have low BSG of 41; given orange juice x2 and glucose with increase in BSG to 80s. At that time had only eaten perhaps 3 bites of toast. Review of Systems Review of Systems: All systems reviewed & are unremarkable except as noted in HPI & below Constitutional: + malaise; no fever and no chills Respiratory: no cough and no dyspnea Cardiovascular: no chest pain, no palpitations and no edema Gastrointestinal: no abdominal pain, no constipation and no diarrhea/loose stools Genitourinary: no dysuria and no hematuria Physical Exam Constitutional: WD/WN, vitals as above Respiratory: normal respiratory effort, lungs clear to auscultation Cardiovascular: RRR, no murmur, no edema Gastrointestinal (Abdomen): normal bowel sounds, soft, nontender, no hepat osplenomegaly Skin: no rashes, warm and dry abdominal surgical incision clean, dry, no purulent drainage or surrounding erythema Psychiatric: A+Ox3, euthymic affect Results & Data Results & Data ([facility]) Vital Signs (Past 12 Hours) Vital Signs Temp Pulse Resp BP BP Pulse Ox 11/10/21 07:43 36.8 C 91 H 16 148/85 H 94 11/09/21 22:47 36.5 C 78 16 148/82 H 97 Resident Activity Tracking Resident Involvement: Resident Care Provided Care Provided: Adult Hospital Medicine
--- NOTE | 2021-11-10 13:26 | Billing Data ---
Date of Service November 10, 2021 Coding Level of Care Code 68316 Subseq Hosp Care Lvl 2
--- NOTE | 2021-11-10 15:11 | Surgery Progress Note ---
Date of Service November 10, 2021 Assessment & Plan (1) H/O hemicolectomy: Plan: Doing well POD#4. On low fiber diet and bowels functioning. No new recommendations. Discharge planning as per medicine service. Admission and Anticipated Discharge Date Admission Date: November 04, 2021 Subjective Feels well. Tolerating low fiber diet. Bowels functioning. Minimal pain. Working with PT/OT Physical Exam Constitutional: WD/WN, vitals as above Respiratory: normal respiratory effort, lungs clear to auscultation Cardiovascular: RRR, no murmur, no edema Gastrointestinal (Abdomen): normal bowel sounds, soft, nontender, no hepatosplenomegaly incision clean and intact Results & Data ([facility]) Vital Signs (Past 12 Hours) Vital Signs Temp Pulse Resp BP Pulse Ox 11/10/21 14:53 36.7 C 89 16 140/82 93 11/10/21 07:43 36.8 C 91 H 16 148/85 H 94 Laboratory Results Abnormal lab results 11/10/21 11/10/21 11/10/21 Range/Units 07:49 07:49 08:39 RBC 3.60 L (4.2-5.4) M/uL Hgb 10.7 L (12.0-16.0) g/dL Hct 32.8 L (37-47) % RDW Std Deviation 59.2 H (36.4-46.3) fL RDW Coeff of Stevie 17.7 H (11.5-14.5) % MPV 11.1 H (7.4-10.4) fL Neut # (Auto) 6.58 H (1.4-6.5) K/uL Immature Gran # (Auto) 0.04 H (0.00-0.02) K/uL Chloride 110 H (98-107) mmol/L Carbon Dioxide 19 L (21-32) mmol/L BUN 30 H (6-23) mg/dl Creatinine 1.33 H (0.6-1.2) mg/dl BUN/Creatinine Ratio 22.6 H (10-20) Glucose 51 L* (70-99(Fasting)) mg/dl POC Glucose 44 L* (70-99) mg/dl Calcium 7.4 L (8.5-10.1) mg/dl 03/19/22 03/19/22 Range/Units 08:58 09:20 RBC (4.2-5.4) M/uL Hgb (12.0-16.0) g/dL Hct (37-47) % RDW Std Deviation (36.4-46.3) fL RDW Coeff of Stevie (11.5-14.5) % MPV (7.4-10.4) fL Neut # (Auto) (1.4-6.5) K/uL Immature Gran # (Auto) (0.00-0.02) K/uL Chloride (98-107) mmol/L Carbon Dioxide (21-32) mmol/L BUN (6-23) mg/dl Creatinine (0.6-1.2) mg/dl BUN/Creatinine Ratio (10-20) Glucose (70-99(Fasting)) mg/dl POC Glucose 52 L* 66 L* (70-99) mg/dl Calcium (8.5-10.1) mg/dl
[2021-11-11] MEDS: HEPARIN SOD 5,000 UNIT/0.5 ML VIAL SQ SCH ×3 (05:39→20:44)
[2021-11-11 06:39] LABS: BUN Creatinine Ratio 23.7 (10-20); Calcium 6.8 mg/dl (8.5-10.1); Creatinine Clr Calc Pharmacy 25.4 ml/min; Est GFR (African American) 50.1 ml/min; Est GFR (Non-African American) 43.2 ml/min; Potassium 3.6 mmol/L (3.5-5.1)
[2021-11-11 07:27] LABS: Eosinophils # (auto) 0.04 K/uL (0-0.5); Eosinophils % (auto) 1.3 %; Hematocrit (blood only) 28.5 % (37-47); Hemoglobin 9.4 g/dL (12.0-16.0); Immature Granulocytes # (auto) 0.04 K/uL (0.00-0.02); Immature Granulocytes % (auto) 1.3 %; Lymphocytes # (auto) 1.09 K/uL (1.2-3.4); Lymphocytes % (auto) 36.2 %; Mean Corpuscular Hemoglobin 29.6 pg (25-34); Mean Corpuscular Volume 89.6 fL (80-100); Mean Platelet Volume 11.2 fL (7.4-10.4); Monocytes # (auto) 0.13 K/uL (0.11-0.59); Monocytes % (auto) 4.3 %; Neutrophils # (auto) 1.71 K/uL (1.4-6.5); Neutrophils % (auto) 56.9 %; Platelet Count 198 K/uL (130-400); RDW Coefficient of Variation 17.6 % (11.5-14.5); RDW Standard Deviation 58.6 fL (36.4-46.3); Red Blood Count 3.18 M/uL (4.2-5.4); White Blood Count 3.01 K/uL (4.8-10.8)
--- NOTE | 2021-11-11 08:40 | Hospitalist Progress Note ---
Date of Service November 11, 2021 Assessment & Plan (1) Adenocarcinoma of cecum: Plan: 80 yo F Hx ileocecal valve adenocarcinoma, HTN, CKD 4 admitted for high grabe SBO 2/2 adenocarcinoma, now s/p R-sided laparoscopic hemicolectomy. SBO secondary to Adenocarcinoma: - Diagnosed with ileocecal valve adenocarcinoma in 04/17/2021; patient refused intervention at that time. - Presented with inability to tolerate adequate PO x2 weeks with N/V. - CTAP: Infiltrative mass of cecum and ileocecal valve, resulting in high-grade small bowel obstruction. - s/p R-sided laparoscopic hemicolectomy on 11/07 by Gen Surg (Dr. Corbin). - Tolerating Low Fiber diet today, will continue. - To continue PT and OT while admitted. Has done well to date except for with stairs, and while PT recommended SNF patient is reticent to do so at this time. Today we discussed that if she ambulates in the unit and finds that she does not feel safe for home, then we will pursue SNF. Plan for discharge home with home services tomorrow vs. SNF referral. Hypoglycemia: - Morning hypoglycemia, resolved with juice. - No history of hypoglycemia per patient or EMR. - Suspect this is due to poor PO intake pre and post procedure; suspect will improve as patient's diet improves. - Hypoglycemia protocol in place, will continue to monitor. - Encouraged PO intake of carb-rich foods in the morning. JUAN superimposed on CKD4: - Resolved, creatinine 1.18 today. - Baseline Cr ~1.5, presented with Cr 2.6; prerenal JUAN improved with IV->PO fluids. - Encourage continued PO intake of fluids. - BMP daily while admitted. - Avoid nephrotoxins. Hypertension: - History of, though not on medications at this time. - BP goal for age, no interventions to be performed unless this changes. Asymptomatic bacteriuria: - UA on admission with LE, WBCs, 1+ bacteria. - Patient denies any UTI symptoms. - Perioperative Abx received, otherwise no indication for treatment of asymptomatic bacteruria. Hyperkalemia: - Resolved. - K 5.7 on admission in the setting of poor PO intake and volume depletion. - Resolved on follow up labs after receiving IV fluids; K normal today. DVT prophylaxis: Heparin Diet: Low Fiber Disposition: Med/Surg CODE STATUS: Full Code; surrogate decision maker is miguel Marie ([phone]) (2) Hyperkalemia: (3) Asymptomatic bacteriuria: (4) Acute kidney injury superimposed on CKD: (5) CKD (chronic kidney disease) stage 4, GFR 15-29 ml/min: (6) Hypoglycemia: Admission and Anticipated Discharge Date Admission Date: November 04, 2021 Supervising Physician Co-Signing Physician Notes I personally examined the patient and verified all wade points of history and exam, discussed case, and agree with decision making with Dr Carcamo feels good overall just weak. does think she needs rehab. vitals noted nad heent nc at mmm breathing unlabored no accessory muscles good effort SBO/cancer - post op, doing well - tolerating diet. pain well controlled. bowel function returned. for rehab - stable for transfer once bed available otherwise as above Subjective Patient without acute events overnight. Tolerating meals well. Able to ambulate around the room but is nervous about her steps in her house and wants to ambulate several times today then go home tomorrow. She does not desire SNF placement at this time. She denies abdominal pain, nausea, vomiting, chest pain, SOB. She endorses a few loose stools since her surgery. Review of Systems Review of Systems: All systems reviewed & are unremarkable except as noted in Subjective Physical Exam Constitutional: WD/WN, vitals as above Respiratory: normal respiratory effort, lungs clear to auscultation Cardiovascular: RRR, no murmur, no edema Gastrointestinal (Abdomen): normal bowel sounds, soft, nontender, no hepatosplenomegaly Skin: no rashes, warm and dry abdominal surgical incision clean, dry, no purulent drainage or surrounding erythema Psychiatric: A+Ox3, euthymic affect Results & Data Results & Data ([facility]) Vital Signs (Past 12 Hours) Vital Signs Temp Pulse Resp BP BP Pulse Ox 11/11/21 07:47 36.4 C L 96 H 18 155/72 H 98 11/10/21 21:13 36.5 C 105 H 18 135/82 95 Resident Activity Tracking Resident Involvement: Resident Care Provided Care Provided: Adult [facility] Medicine
[2021-11-11] MEDS: CARBOHYDRATES FOR HYPOGLYCEMIA PO PRN (10:43)
--- NOTE | 2021-11-11 13:36 | Surgery Progress Note ---
Date of Service November 11, 2021 Assessment & Plan (1) H/O hemicolectomy: Plan: Doing well POD#5. On low fiber diet and bowels functioning. Could consider C. dif testing if loose stool continues. Discharge planning as per medicine team. Admission and Anticipated Discharge Date Admission Date: November 04, 2021 Subjective Has had some loose stool yesterday. Otherwise tolerating diet and feels she is improving. Physical Exam Constitutional: WD/WN, vitals as above Respiratory: normal respiratory effort, lungs clear to auscultation Cardiovascular: RRR, no murmur, no edema Gastrointestinal (Abdomen): normal bowel sounds, soft, nontender, no hepatosplenomegaly incision clean Results & Data ([facility]) Vital Signs (Past 12 Hours) Vital Signs Temp Pulse Resp BP Pulse Ox 11/11/21 07:47 36.4 C L 96 H 18 155/72 H 98 Laboratory Results Abnormal lab results 11/11/21 11/11/21 11/11/21 Range/Units 05:58 07:02 08:39 WBC 3.01 L D (4.8-10.8) K/uL RBC 3.18 L (4.2-5.4) M/uL Hgb 9.4 L (12.0-16.0) g/dL Hct 28.5 L (37-47) % RDW Std Deviation 58.6 H (36.4-46.3) fL RDW Coeff of Stevie 17.6 H (11.5-14.5) % MPV 11.2 H (7.4-10.4) fL Lymph # (Auto) 1.09 L (1.2-3.4) K/uL Immature Gran # (Auto) 0.04 H (0.00-0.02) K/uL Chloride 115 H (98-107) mmol/L Carbon Dioxide 14 L (21-32) mmol/L BUN 28 H (6-23) mg/dl BUN/Creatinine Ratio 23.7 H (10-20) Glucose 63 L (70-99(Fasting)) mg/dl POC Glucose 55 L* (70-99) mg/dl Calcium 6.8 L (8.5-10.1) mg/dl 11/11/21 11/11/21 Range/Units 08:41 09:07 WBC (4.8-10.8) K/uL RBC (4.2-5.4) M/uL Hgb (12.0-16.0) g/dL Hct (37-47) % RDW Std Deviation (36.4-46.3) fL RDW Coeff of Stevie (11.5-14.5) % MPV (7.4-10.4) fL Lymph # (Auto) (1.2-3.4) K/uL Immature Gran # (Auto) (0.00-0.02) K/uL Chloride (98-107) mmol/L Carbon Dioxide (21-32) mmol/L BUN (6-23) mg/dl BUN/Creatinine Ratio (10-20) Glucose (70-99(Fasting)) mg/dl POC Glucose 56 L* 52 L* (70-99) mg/dl Calcium (8.5-10.1) mg/dl
--- NOTE | 2021-11-11 15:07 | Billing Data ---
Date of Service November 11, 2021 Coding Level of Care Code 32269 Subseq Hosp Care Lvl 2
[2021-11-12] MEDS: HEPARIN SOD 5,000 UNIT/0.5 ML VIAL SQ SCH ×3 (05:42→21:57)
[2021-11-12 06:12] LABS: Hemoglobin 9.2 g/dL (12.0-16.0); Mean Corpuscular Hemoglobin 29.8 pg (25-34); Mean Corpuscular Hgb Conc 32.9 g/dL (32-36); Mean Corpuscular Volume 90.6 fL (80-100); Mean Platelet Volume 10.7 fL (7.4-10.4); Platelet Count 201 K/uL (130-400); RDW Coefficient of Variation 17.5 % (11.5-14.5); RDW Standard Deviation 57.6 fL (36.4-46.3); Red Blood Count 3.09 M/uL (4.2-5.4); White Blood Count 2.36 K/uL (4.8-10.8)
[2021-11-12 06:33] LABS: BUN Creatinine Ratio 23.1 (10-20); Calcium 6.9 mg/dl (8.5-10.1); Creatinine Clr Calc Pharmacy 27.7 ml/min; Est GFR (African American) 55.8 ml/min; Est GFR (Non-African American) 48.1 ml/min; Potassium 3.6 mmol/L (3.5-5.1)
[2021-11-12 06:56] LABS: ALC (manual) 0.79 K/uL (1.2-3.4); ANC (manual) 1.39 K/uL (1.4-6.5); Eosinophils # (manual) 0.09 K/uL (0-0.5); Eosinophils % (manual) 3.8 %; Lymphocytes # (manual) 0.79 K/uL (1.2-3.4); Lymphocytes % (manual) 33.3 %; Monocytes # (manual) 0.09 K/uL (0.11-0.59); Monocytes % (manual) 3.8 %; Neutrophils # (manual) 1.39 K/uL (1.4-6.5); Neutrophils % (manual) 59.1 %
--- NOTE | 2021-11-12 07:07 | Hospitalist Progress Note ---
Date of Service November 12, 2021 Assessment & Plan (1) Adenocarcinoma of cecum: Plan: 80 yo F Hx ileocecal valve adenocarcinoma, HTN, CKD 4 admitted for high grabe SBO 2/2 adenocarcinoma, now s/p R-sided laparoscopic hemicolectomy. SBO secondary to Adenocarcinoma: - Diagnosed with ileocecal valve adenocarcinoma in 04/17/2021; patient refused intervention at that time. - Presented with inability to tolerate adequate PO x2 weeks with N/V. - CTAP: Infiltrative mass of cecum and ileocecal valve, resulting in high-grade small bowel obstruction. - s/p R-sided laparoscopic hemicolectomy on 11/07 by Gen Surg (Dr. Corbin). - Tolerating Low Fiber diet - continue - PT/OT working with patient - recommended SNF: patient amenable to this and currently awaiting decision from [facility] Diarrhea 3-4 episodes per day since surgery. C. diff negative. Suspect due to shortened bowel. - continue to trend Leukopenia WBC 8-->3-->2.36 today. No s/s infection. Unclear etiology. - peripheral smear ordered for tomorrow AM - trend CBC daily Normocytic Anemia Suspect anemia of chronic disease (CKD4). - trend daily JUAN on CKD4, JUAN resolved Baseline Cr ~1.5, presented with Cr 2.6; prerenal JUAN resolved with IV->PO fluids. - Encourage continued PO intake - BMP daily - Avoid nephrotoxins HTN - History of, though not on medications at this time - BP goal for age, no interventions to be performed unless this changes Asymptomatic bacteriuria - UA on admission with LE, WBCs, 1+ bacteria. - Patient denies any UTI symptoms. - Perioperative Abx received, otherwise no indication for treatment of asymptomatic bacteruria DVT prophylaxis: Heparin 5000units SQ Q8H Diet: Low Fiber Disposition: Med/Surg, CM on board to assist with SNF placement (decision pending) CODE STATUS: Full Code - surrogate decision maker is miguel Marie ([phone]) (2) Hyperkalemia: (3) Asymptomatic bacteriuria: (4) Acute kidney injury superimposed on CKD: (5) CKD (chronic kidney disease) stage 4, GFR 15-29 ml/min: (6) Hypoglycemia: Admission and Anticipated Discharge Date Admission Date: November 04, 2021 Supervising Physician Co-Signing Physician Notes Attending attestation Pt seen and examined in concert with Dr. Cespedes. In agreement with the documented findings as noted in the resident documentation with any exceptions or additions as noted here. Complaining of ongoing loose BM with some urge type incontinence (can't hold it until the nurses arrive) without significant volume. Controlled abdominal pain on current pain control. Engaged with rehab services. On examination, S1/S2 nl RRR no MCG. CTAB. 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 Agree w continued pain control and monitoring. Counseling re: quality and frequency of BM in the setting of negative C. diff testing. Else see resident documentation as noted. Subjective No acute events overnight. Continues to report 3-4 episodes of diarrhea per day since ~1-2 days after surgery. Otherwise reports doing well. Tolerating low- fiber diet without N/V. No abdominal pain. No redness on/around abdominal incisi on. Denies fever/chills, chest pain, SOB. Review of Systems Review of Systems: All systems reviewed & are unremarkable except as noted in HPI & below Physical Exam Physical Exam: General: A&Ox3. NAD. Cooperative. HEENT: Atraumatic, normocephalic. Pulm: CTAB A&P. -wheezes, -rales, -rhonchi. Symmetrical chest rise. No increase work of breathing. No respiratory distress. Cardiac: RRR, -mrg. Radial pulses intact and symmetrical. Abdominal: soft, non-tender, non-distended, NA BS x 4. Surgical incision with mora in place and without surrounding erythema/warmth/tenderness. Healing well. Skin: warm, dry, no rash Results & Data Results & Data ([facility]) Vital Signs (Past 12 Hours) Vital Signs Temp Pulse Resp BP Pulse Ox 11/11/21 22:05 36.8 C 87 17 134/80 96 Resident Activity Tracking Resident Involvement: Resident Care Provided Care Provided: Adult Hospital Medicine
--- NOTE | 2021-11-12 09:14 | Surgery Progress Note ---
Date of Service November 12, 2021 Assessment & Plan (1) Adenocarcinoma of cecum: Plan: POD 6 right colectomy making progress may shower d/c planning-rehab Admission and Anticipated Discharge Date Admission Date: November 04, 2021 Supervising Physician Co-Signing Physician Notes Pnt S&E, agree with above. Tolerating low fiber diet, having loose bm's. No pain. afvss. nad, aaox3. labs unremarkable. recommend probiotics, banana flakes, continue low fiber diet. Path reviewed, will likely recommend med onc, PET, and likely chemo as outpatient. Okay to d/c from surgery standpoint. Subjective appetite improving, 2-4 loose BMs daily Physical Exam Gastrointestinal (Abdomen): Inspection/Auscultation: + abdominal surgical incision (no erythema); abdomen not distended Percussion/Palpation: abdomen soft Results & Data ([facility]) Vital Signs (Past 12 Hours) Vital Signs Temp Pulse Pulse Resp BP Pulse Ox 11/12/21 07:21 36.3 C L 91 H 16 154/84 H 98 11/11/21 22:05 36.8 C 87 17 134/80 96 PG Care Time/CCT Total # of Minutes Spent Total Time Spent with Patient: Total time spent is greater than 50% in coordination of care (as documented) at patient's floor/unit and/or counseling patient: Coding Level of Care Code None Diagnoses Adenocarcinoma of cecum C18.0
[2021-11-13] MEDS: HEPARIN SOD 5,000 UNIT/0.5 ML VIAL SQ SCH ×3 (06:22→21:25)
--- NOTE | 2021-11-13 07:21 | Hospitalist Progress Note ---
Date of Service November 13, 2021 Assessment & Plan (1) Adenocarcinoma of cecum: Plan: 80 yo F Hx ileocecal valve adenocarcinoma, HTN, CKD [address] [facility] on 11/04 for high grabe SBO 2/2 adenocarcinoma, now s/p R-sided laparoscopic hemicolectomy on 11/07. Pending placement to rehab. SBO secondary to Adenocarcinoma - Diagnosed with ileocecal valve adenocarcinoma in 04/17/2021; patient refused intervention at that time. - Presented with inability to tolerate adequate PO x2 weeks with N/V. - CTAP: Infiltrative mass of cecum and ileocecal valve, resulting in high-grade small bowel obstruction. - s/p R-sided laparoscopic hemicolectomy on 11/07 by Gen Surg (Dr. Corbin). - Tolerating Low Fiber diet - continue - PT/OT working with patient - recommended rehab and CM kindly assisting with this: patient amenable to this and currently decisions on several referrals are pending Diarrhea, improving 3-4 episodes per day since surgery. C. diff negative. Suspect due to shortened bowel. - continue to trend Hypomagnesemia Mg 1.3, suspect 2/2 diarrhea. - repleted - trend in AM Leukopenia, improving WBC 3.72 today. No s/s infection. Unclear etiology. - peripheral smear showed monocytopenia, without dysplastic cells - possibly due to known colon cancer - trend CBC daily Normocytic Anemia Suspect anemia of chronic disease (CKD4). - trend daily JUAN on CKD4, JUAN resolved Baseline Cr ~1.5, presented with Cr 2.6; prerenal JUAN resolved with IV->PO fluids. - Encourage continued PO intake - BMP daily - Avoid nephrotoxins HTN - History of, though not on medications at this time - BP goal for age, no interventions to be performed unless this changes Asymptomatic bacteriuria - UA on admission with LE, WBCs, 1+ bacteria. - Patient denies any UTI symptoms. - Perioperative abx received, otherwise no indication for treatment of asymptom atic bacteruria DVT prophylaxis: Heparin 5000units SQ Q8H Diet: Low Fiber Disposition: Med/Surg, CM on board to assist with rehab placement (referrals pending) CODE STATUS: Full Code - surrogate decision maker is miguel Marie ([phone]) (2) Hyperkalemia: (3) Asymptomatic bacteriuria: (4) Acute kidney injury superimposed on CKD: (5) CKD (chronic kidney disease) stage 4, GFR 15-29 ml/min: (6) Hypoglycemia: Admission and Anticipated Discharge Date Admission Date: November 04, 2021 Supervising Physician Co-Signing Physician Notes Attending attestation Pt seen and examined in concert with Dr. Cespedes. In agreement with the documented findings as noted in the resident documentation with any exceptions or additions as noted here. Decreased volume of loose stool with stable frequency (QID). Controlled abdominal pain on current pain control. Engaged with rehab services. On examination, S1/S2 nl RRR no MCG. CTAB. Abd ND BS+ve Postop lap partial colectomy in the setting of SBO 2/2 colonic adenocarcinoma - gen surg consult, PT - enthusiastic re: rehab services in house and goal of return home when safe. Continue pain and symptomatic management. Hypomagnesemia in the setting of diarrhea - trend daily, repleted CKDIV w/ resolved JUAN - continute to encourage PO fluid intake, avoid nephrotoxins Else see resident documentation as noted. Subjective No acute events overnight. Continues to report 3-4 episodes of diarrhea per day since ~1-2 days after surgery, although amount of diarrhea has been decreasing. Denies abdominal pain or other pain. Otherwise reports doing well. Tolerating low-fiber diet without N/V. No redness on/around abdominal incision. Denies fever/chills, chest pain, SOB. Review of Systems Review of Systems: All systems reviewed & are unremarkable except as noted in HPI & below Physical Exam Physical Exam: General: A&Ox3. NAD. Cooperative. HEENT: Atraumatic, normocephalic. Pulm: CTAB A&P. -wheezes, -rales, -rhonchi. Symmetrical chest rise. No increase work of breathing. No respiratory distress. Cardiac: RRR, -mrg. Radial pulses intact and symmetrical. No LE edema. Abdominal: soft, non-tender, non-distended, NA BS x 4. Surgical incision with mora in place and without surrounding erythema/warmth/tenderness. Healing well. Skin: warm, dry, no rash Results & Data Results & Data ([facility]) Vital Signs (Past 12 Hours) Vital Signs Temp Pulse Resp BP Pulse Ox 11/12/21 23:01 36.6 C 88 18 154/82 H 99 Resident Activity Tracking Resident Involvement: Resident Care Provided Care Provided: Adult Hospital Medicine
[2021-11-13 08:51] LABS: Hematocrit (blood only) 27.7 % (37-47); Hemoglobin 8.9 g/dL (12.0-16.0); Mean Corpuscular Hemoglobin 29.6 pg (25-34); Mean Corpuscular Hgb Conc 32.1 g/dL (32-36); Mean Platelet Volume 10.2 fL (7.4-10.4); Platelet Count 197 K/uL (130-400); RDW Coefficient of Variation 17.3 % (11.5-14.5); RDW Standard Deviation 57.8 fL (36.4-46.3); Red Blood Count 3.01 M/uL (4.2-5.4); White Blood Count 3.72 K/uL (4.8-10.8)
[2021-11-13 09:20] LABS: BUN Creatinine Ratio 18.3 (10-20); Calcium 7.1 mg/dl (8.5-10.1); Creatinine Clr Calc Pharmacy 28.8 ml/min; Est GFR (African American) 58.4 ml/min; Est GFR (Non-African American) 50.3 ml/min; Magnesium 1.3 mg/dl (1.7-2.4)
[2021-11-13 09:28] LABS: ALC (manual) 0.51 K/uL (1.2-3.4); ANC (manual) 2.98 K/uL (1.4-6.5); Basophils # (manual) 0.06 K/uL (0-0.2); Basophils % (manual) 1.7 %; Eosinophils # (manual) 0.03 K/uL (0-0.5); Eosinophils % (manual) 0.9 %; Lymphocytes # (manual) 0.51 K/uL (1.2-3.4); Lymphocytes % (manual) 13.8 %; Metamyelocytes # (manual) 0.06 K/uL (0-0); Metamyelocytes % (manual) 1.7 %; Monocytes # (manual) 0.06 K/uL (0.11-0.59); Monocytes % (manual) 1.7 %; Neutrophils # (manual) 2.98 K/uL (1.4-6.5); Neutrophils % (manual) 80.2 %
[2021-11-13] MEDS: MAGNESIUM SULFATE / D5W 1 GM/100 ML BAG IV SCH ×3 (10:28→14:29)
--- NOTE | 2021-11-13 12:56 | Surgery Progress Note ---
Date of Service November 13, 2021 Assessment & Plan (1) H/O hemicolectomy: Plan: Status post lap assisted right hemicolectomy for obstructing adenocarcinoma of the colon, doing well. Continue low fiber diet Probably should continue to become more solid over time Activity as tolerated, no heavy lifting for 3 weeks Patient may shower, do not soak or scrub wound for 2 weeks Follow-up in general surgery clinic for staple removal in 1 to 2 weeks Patient will likely need PET scan and chemotherapy, will place medical oncology referral as an outpatient General surgery will follow peripherally, call with questions or concerns Admission and Anticipated Discharge Date Admission Date: November 04, 2021 Subjective 80-year-old female POD #7 laparoscopic assisted right hemicolectomy. Continues to have loose bowel movements but they seem to be getting firmer. Tolerating diet. Awaiting placement. Physical Exam Constitutional: WD/WN, vitals as above Gastrointestinal (Abdomen): normal bowel sounds, soft, nontender, no hepatosplenomegaly Inspection/Auscultation: + abdominal surgical incision (Incision with mora, no infection) Results & Data ([facility]) Vital Signs (Past 12 Hours) Vital Signs Temp Pulse Resp BP Pulse Ox 11/13/21 07:56 36.4 C L 88 18 145/84 H 98 Laboratory Results FINAL DIAGNOSIS A. Colon, right, hemicolectomy: - Invasive adenocarcinoma - See synoptic summary for additional information B. Colon, distal, resection: - Benign colonic mucosa - Negative for malignancy at 1121. Clinical History Small bowel obstruction with cecal adenocarcinoma. Procedure performed: Laparoscopic hand assisted right hemicolectomy. Gross Description A. RIGHT COLON The specimen is received in a container labeled right colon with the patient name. The specimen consists of an ileocolonic resection including portion of terminal ileum, cecum with attached appendix and portion of ascending colon. Abundant fatty tissue is attached. The portion of large intestine measures 14 cm in length and ranges from 3 to 4.5 cm in diameter. The serosal surface is pink to sung and appears focally distorted over a portion of the cecum. The distalmost ileum appears adherent to the cecum and the proximal appendix has a markedly dilated appearance. On opening an ulcerated and fungating mucosal mass is noted within the cecum, extending to and involving the ileocecal valve. This also appears to extend into the terminal most portions of the ileum and on sectioning, into the proximal portions of appendix. Overall the mass appears to measure 4.5 x 2 x 2 cm. On sectioning the mass appears to extend through the wall of the cecum into the wall of the terminal most ileum, producing the adhesion noted. The mass focally extends to and possibly invades pericolonic fat. The mass extends to but does not obviously penetrate the serosal surface of the appendix or cecum. The mass is 4.5 cm proximal resection margin; 11 cm from the distal resection margin and 5 cm from the mesenteric resection margin. Two, sessile, smooth surface polyps are noted within the ascending colon with these measuring 0.3 and 0.5 cm in diameter. The nearest is 1.5 cm from the mass. The remaining mucosa of the ascending colon shows a marked attenuation of the rugal pattern and has a neff to slightly grayish coloration. The uninvolved mucosa of the terminal ileum is pink to sung with a normal to focally attenuated rugal pattern. The appendix is distorted but appears to measure 5 cm in length and range from 0.5 to 1.8 cm in diameter. The proximal portions of the wall are thickened by what appears to be extension of the cecal mass. The mid and distal lumen is dilated to varying degrees. Sectioning through the attached fatty tissue reveals multiple lymph nodes which range from 0.2 to 0.8 cm in greatest dimension. Some have a neff to grayish, firm cut surface. Obstetrician Gynecologist sections are submitted in 14 cassettes as follows: A1, en face proximal resection margin; A2, en face distal resection margin; A3, perpendicular mesenteric resection margin; A4 through A7, sections of mass with A5 representing adherent ileum and cecum; A6, ileocecal valve and A7, inked serosa; A8, polyps; A9, random colonic section; A10, appendix; A11 through A14, lymph nodes. B. DISTAL COLON The specimen is received in a container labeled distal colon with the patient name. The specimen consists of a portion of large intestine which measures 3 x 2.5 x 2.5 cm. The serosal surface is mildly hyperemic and smooth. The mucosa is mildly hyperemic with a slight attenuation of the rugal pattern. No obvious abnormality is noted. No lymph nodes are identified within the attached fatty tissue. A medical collections representative section is submitted in a single cassette as B1. SH Synoptic Report PROCEDURE: Right hemicolectomy TUMOR SITE: Cecum HISTOLOGIC TYPE: Adenocarcinoma HISTOLOGIC GRADE: G1, well differentiated TUMOR SIZE: 4.5 x 2 x 2 cm MULTIPLE PRIMARY SITES: Not applicable (no additional primary site(s) present) TUMOR EXTENT: Invades through muscularis propria into pericolorectal tissue MACROSCOPIC TUMOR PERFORATION: Not identified LYMPHOVASCULAR INVASION: Not identified PERINEURAL INVASION: Present TREATMENT EFFECT: No known presurgical therapy MARGIN STATUS FOR INVASIVE CARCINOMA: All margins negative for invasive carcinoma MARGIN STATUS FOR NON-INVASIVE TUMOR: All margins negative for high-grade dysplasia/intramucosal carcinoma and low-grade dysplasia REGIONAL LYMPH NODES: Tumor present in regional lymph node(s) NUMBER OF LYMPH NODES WITH TUMOR: 4 NUMBER OF LYMPH NODES EXAMINED: 13 TUMOR DEPOSITS: Not identified ADDITIONAL FINDINGS: Two tubular adenomas PATHOLOGIC STAGE CLASSIFICATION: [id number] Comment: The tumor appears to arise from the cecum and shows direct extension into the terminal ileum and appendix with adhesion to the ileum. The tumor gets extremely close to the serosa (< 1 mm) but does not obviously invade it. The lymph node metastases show extranodal extension and extensive perineural invasion. PG Care Time/CCT Total # of Minutes Spent Total Time Spent with Patient: Total time spent is greater than 50% in coordination of care (as documented) at patient's floor/unit and/or counseling patient: Coding Level of Care Code None Diagnoses H/O hemicolectomy Z90.49
[2021-11-14] MEDS: HEPARIN SOD 5,000 UNIT/0.5 ML VIAL SQ SCH ×3 (06:06→21:42)
[2021-11-14 06:46] LABS: Basophils # (auto) 0.01 K/uL (0-0.2); Basophils % (auto) 0.2 %; Eosinophils # (auto) 0.03 K/uL (0-0.5); Eosinophils % (auto) 0.7 %; Hematocrit (blood only) 26.1 % (37-47); Hemoglobin 8.5 g/dL (12.0-16.0); Immature Granulocytes # (auto) 0.04 K/uL (0.00-0.02); Lymphocytes # (auto) 0.84 K/uL (1.2-3.4); Lymphocytes % (auto) 20.4 %; Mean Corpuscular Hemoglobin 29.6 pg (25-34); Mean Corpuscular Hgb Conc 32.6 g/dL (32-36); Mean Corpuscular Volume 90.9 fL (80-100); Monocytes # (auto) 0.28 K/uL (0.11-0.59); Monocytes % (auto) 6.8 %; Neutrophils # (auto) 2.92 K/uL (1.4-6.5); Neutrophils % (auto) 70.9 %; Platelet Count 208 K/uL (130-400); RDW Coefficient of Variation 17.1 % (11.5-14.5); RDW Standard Deviation 56.3 fL (36.4-46.3); Red Blood Count 2.87 M/uL (4.2-5.4); White Blood Count 4.12 K/uL (4.8-10.8)
[2021-11-14 07:07] LABS: BUN Creatinine Ratio 15.2 (10-20); Calcium 6.7 mg/dl (8.5-10.1); Creatinine Clr Calc Pharmacy 30.3 ml/min; Est GFR (African American) 61.9 ml/min; Est GFR (Non-African American) 53.4 ml/min; Magnesium 1.9 mg/dl (1.7-2.4); Potassium 3.6 mmol/L (3.5-5.1)
--- NOTE | 2021-11-14 07:14 | Hospitalist Progress Note ---
Date of Service November 14, 2021 Assessment & Plan (1) Adenocarcinoma of cecum: Plan: 80 yo F Hx ileocecal valve adenocarcinoma, HTN, CKD 4 admitted to [facility] on 11/04 for high grabe SBO 2/2 adenocarcinoma, now s/p R-sided laparoscopic hemicolectomy on 11/07. Pending placement to rehab. SBO secondary to Adenocarcinoma - Diagnosed with ileocecal valve adenocarcinoma in 04/17/2021; patient refused intervention at that time. - Presented with inability to tolerate adequate PO x2 weeks with N/V. - CTAP: Infiltrative mass of cecum and ileocecal valve, resulting in high-grade small bowel obstruction. - s/p R-sided laparoscopic hemicolectomy on 11/07 by Gen Surg (Dr. Corbin). - Tolerating Low Fiber diet - continue - PT/OT working with patient - recommended rehab and CM kindly assisting with this: patient amenable to this and currently decisions on several referrals are pending Diarrhea, improving 3-4 episodes per day since surgery, now improved to 2 episodes per day. C. diff negative. Suspect due to shortened bowel. - continue to trend Leukopenia, improving No s/s infection. Unclear etiology. - peripheral smear showed monocytopenia, without dysplastic cells - possibly due to known colon cancer - trend CBC daily Normocytic Anemia Suspect anemia of chronic disease (CKD4), especially given iron studies. - trend daily JUAN on CKD4, JUAN resolved Baseline Cr ~1.5, presented with Cr 2.6; prerenal JUAN resolved with IV->PO fluids. - Encourage continued PO intake - BMP daily - Avoid nephrotoxins HTN - History of, though not on medications at this time - BP goal for age, no interventions to be performed unless this changes Asymptomatic bacteriuria - UA on admission with LE, WBCs, 1+ bacteria. - Patient denies any UTI symptoms. - Perioperative abx received, otherwise no indication for treatment of asymptomatic bacteruria DVT prophylaxis: Heparin 5000units SQ Q8H Diet: Low Fiber Disposition: Med/Surg, CM on board to assist with rehab placement (referrals pending) CODE STATUS: Full Code - surrogate decision maker is miguel Marie ([phone]) (2) Hyperkalemia: (3) Asymptomatic bacteriuria: (4) Acute kidney injury superimposed on CKD: (5) CKD (chronic kidney disease) stage 4, GFR 15-29 ml/min: (6) Hypoglycemia: Admission and Anticipated Discharge Date Admission Date: November 04, 2021 Supervising Physician Co-Signing Physician Notes Attending attestation Pt seen and examined in concert with Dr. Cespedes. In agreement with the documented findings as noted in the resident documentation with any exceptions or additions as noted here. Continued decrease of stool volume though still loose. Controlled abdominal pain on current pain control. Engaged with rehab services. On examination, S1/S2 nl RRR no MCG. CTAB. Abd ND BS+ve Postop lap partial colectomy in the setting of SBO 2/2 colonic adenocarcinoma - gen surg consult, PT - continue rehab services in house and goal of return home when safe. Continue pain and symptomatic management. Hypomagnesemia in the setting of diarrhea - trend daily CKDIV w/ resolved JUAN - continue to encourage PO fluid intake, avoid nephrotoxins Else see resident documentation as noted. Subjective No acute events overnight. Reports that diarrhea only happened twice yesterday and is lessening in amount. Denies abdominal pain or redness around surgical incision. Does complain of tailbone tenderness. Denies fever/chills, chest pain, SOB, N/V, abdominal pain, rash. Review of Systems Review of Systems: All systems reviewed & are unremarkable except as noted in HPI & below Physical Exam Physical Exam: General: A&Ox3. NAD. Cooperative. HEENT: Atraumatic, normocephalic. Pulm: CTAB A&P. -wheezes, -rales, -rhonchi. Symmetrical chest rise. No increase work of breathing. No respiratory distress. Cardiac: RRR, -mrg. Radial pulses intact and symmetrical. No LE edema. Abdominal: soft, non-tender, non-distended, NA BS x 4. Surgical incision with mora in place and without surrounding erythema/warmth/tenderness. Healing well. Skin: sacrum with dressing c/d/i and without surrounding erythema Results & Data Results & Data ([facility]) Vital Signs (Past 12 Hours) Vital Signs Temp Pulse Resp BP Pulse Ox 11/13/21 23:03 36.7 C 45 L 16 150/71 H 98 Resident Activity Tracking Resident Involvement: Resident Care Provided Care Provided: Adult [facility] Medicine
[2021-11-15] MEDS: HEPARIN SOD 5,000 UNIT/0.5 ML VIAL SQ SCH ×3 (05:24→21:53)
[2021-11-15 07:18] LABS: Hematocrit (blood only) 25.7 % (37-47); Hemoglobin 8.3 g/dL (12.0-16.0); Mean Corpuscular Hemoglobin 29.6 pg (25-34); Mean Corpuscular Hgb Conc 32.3 g/dL (32-36); Mean Corpuscular Volume 91.8 fL (80-100); Mean Platelet Volume 10.4 fL (7.4-10.4); Platelet Count 223 K/uL (130-400); RDW Coefficient of Variation 17.6 % (11.5-14.5); RDW Standard Deviation 57.2 fL (36.4-46.3); White Blood Count 3.95 K/uL (4.8-10.8)
[2021-11-15 07:22] LABS: BUN Creatinine Ratio 12.9 (10-20); Calcium 6.8 mg/dl (8.5-10.1); Creatinine Clr Calc Pharmacy 29.7 ml/min; Est GFR (African American) 60.5 ml/min; Est GFR (Non-African American) 52.2 ml/min; Magnesium 1.7 mg/dl (1.7-2.4); Phosphorus 2.1 mg/dl (2.5-4.9); Potassium 3.8 mmol/L (3.5-5.1)
[2021-11-15] MEDS ORDERED: POTASSIUM PHOS 3 MMOL/1 ML INFUSION IV STA (07:38)
[2021-11-15] MEDS ORDERED: POTASSIUM PHOSPHATE 9 MMOL in SODIUM CHLORIDE 0.9% 250 ML IV ONE (08:15)
--- NOTE | 2021-11-15 09:11 | Hospitalist Progress Note ---
Date of Service November 15, 2021 Assessment & Plan (1) Adenocarcinoma of cecum: Plan: 80 yo F Hx ileocecal valve adenocarcinoma, HTN, CKD 4 admitted to [facility] on 11/04 for high grabe SBO 2/2 adenocarcinoma, now s/p R-sided laparoscopic hemicolectomy on 11/07. Pending placement to rehab. SBO secondary to Adenocarcinoma - Diagnosed with ileocecal valve adenocarcinoma in 04/17/2021; patient refused intervention at that time. - Presented with inability to tolerate adequate PO x2 weeks with N/V. - CTAP: Infiltrative mass of cecum and ileocecal valve, resulting in high-grade small bowel obstruction. - s/p R-sided laparoscopic hemicolectomy on 11/07 by Gen Surg (Dr. Corbin). - Tolerating Low Fiber diet - continue - PT/OT working with patient - recommended rehab and CM kindly assisting with this: patient amenable to this and currently decisions on several referrals are pending Diarrhea, resolving 3-4 episodes per day since surgery, now minimal. C. diff negative. Suspect due to shortened bowel. - continue to trend Hypophosphatemia Phos 2.1 - suspect 2/2 diarrhea. - repleted - trend in AM Leukopenia, improving No s/s infection. Unclear etiology. - peripheral smear showed monocytopenia, without dysplastic cells - possibly due to known colon cancer - trend CBC QOD Normocytic Anemia Suspect anemia of chronic disease (CKD4), especially given iron studies. - trend QOD as stated above JUAN on CKD4, JUAN resolved Baseline Cr ~1.5, presented with Cr 2.6; prerenal JUAN resolved with IV->PO fluids. - Encourage continued PO intake - BMP daily - Avoid nephrotoxins HTN - History of, though not on medications at this time - BP goal for age, no interventions to be performed unless this changes DVT prophylaxis: Heparin 5000units SQ Q8H Diet: Low Fiber Disposition: Med/Surg, CM on board to assist with rehab placement (referrals nirali mcclellan) CODE STATUS: Full Code - surrogate decision maker is miguel Marie ([phone]) (2) Hyperkalemia: (3) Asymptomatic bacteriuria: (4) Acute kidney injury superimposed on CKD: (5) CKD (chronic kidney disease) stage 4, GFR 15-29 ml/min: (6) Hypoglycemia: Admission and Anticipated Discharge Date Admission Date: November 04, 2021 Supervising Physician Co-Signing Physician Notes Attending attestation Pt seen and examined in concert with Dr. Cespedes. In agreement with the documented findings as noted in the resident documentation with any exceptions or additions as noted here. Resting comfortably without complaint of loose bowels today. Minimal abdominal pain on current pain control. Engaged with rehab services. On examination, S1/S2 nl RRR no MCG. CTAB. Abd ND BS+ve, mild TTP at surgical site Postop lap partial colectomy in the setting of SBO 2/2 colonic adenocarcinoma - gen surg consult, PT - continue rehab services in house and goal of return home when safe. Continue pain and symptomatic management. Tolerated COVID vaccination well. Hypomagnesemia in the setting of diarrhea - trend daily CKD IV w/ resolved JUAN - continue to encourage PO fluid intake, avoid nephrotoxins Else see resident documentation as noted. Subjective No acute events overnight. Diarrhea minimal - improving. Denies abdominal pain or redness around surgical incision. Denies fever/chills, chest pain, SOB, N/V, abdominal pain, rash. Review of Systems Review of Systems: All systems reviewed & are unremarkable except as noted in HPI & below Physical Exam Physical Exam: General: A&Ox3. NAD. Cooperative. HEENT: Atraumatic, normocephalic. Pulm: CTAB A&P. -wheezes, -rales, -rhonchi. Symmetrical chest rise. No increase work of breathing. No respiratory distress. Cardiac: RRR, -mrg. Radial pulses intact and symmetrical. No LE edema. Abdominal: soft, non-tender, non-distended, NA BS x 4. Surgical incision with mora in place and without surrounding erythema/warmth/tenderness. Healing well. Results & Data Results & Data ([facility]) Vital Signs (Past 12 Hours) Vital Signs Temp Pulse Resp BP Pulse Ox 11/15/21 07:21 36.6 C 88 18 105/59 L 98 11/14/21 22:25 36.6 C 45 L 16 144/76 H 98 Resident Activity Tracking Resident Involvement: Resident Care Provided Care Provided: Adult [facility] Medicine
[2021-11-15] MEDS ORDERED: COVID-19 VAC,AD26(JANSSEN)/PF 0.5 ML SYR IM ONE (10:00)
[2021-11-16] MEDS: HEPARIN SOD 5,000 UNIT/0.5 ML VIAL SQ SCH ×3 (05:53→22:20)
[2021-11-16 07:08] LABS: BUN Creatinine Ratio 11.2 (10-20); Calcium 7.1 mg/dl (8.5-10.1); Est GFR (African American) 56.4 ml/min; Est GFR (Non-African American) 48.6 ml/min; Magnesium 1.6 mg/dl (1.7-2.4); Phosphorus 2.4 mg/dl (2.5-4.9); Potassium 3.9 mmol/L (3.5-5.1)
[2021-11-16] MEDS ORDERED: POTASSIUM PHOS 3 MMOL/1 ML INFUSION IV STA (08:27)
--- NOTE | 2021-11-16 08:33 | Hospitalist Progress Note ---
Date of Service November 16, 2021 Assessment & Plan (1) Adenocarcinoma of cecum: Plan: 80 yo F Hx ileocecal valve adenocarcinoma, HTN, CKD 4 admitted to [facility] on 11/04 for high grabe SBO 2/2 adenocarcinoma, now s/p R-sided laparoscopic hemicolectomy on 11/07. Pending placement to rehab. SBO secondary to Adenocarcinoma - Diagnosed with ileocecal valve adenocarcinoma in 04/17/2021; patient refused intervention at that time. - Presented with inability to tolerate adequate PO x2 weeks with N/V. - CTAP: Infiltrative mass of cecum and ileocecal valve, resulting in high-grade small bowel obstruction. - s/p R-sided laparoscopic hemicolectomy on 11/07 by Gen Surg (Dr. Corbin). - Tolerating Low Fiber diet - continue - PT/OT working with patient - recommended rehab and CM kindly assisting with this: patient amenable to this and currently decisions on several referrals are pending - Patient would like to f/u with Dr. Eli after discharge to discuss treatment options Diarrhea, resolving 3-4 episodes per day since surgery, now minimal. C. diff negative. Suspect due to shortened bowel. - continue to trend Leukopenia, improving No s/s infection. Unclear etiology. - peripheral smear showed monocytopenia, without dysplastic cells - possibly due to known colon cancer - trend CBC QOD Normocytic Anemia Suspect anemia of chronic disease (CKD4), especially given iron studies. - trend QOD as stated above JUAN on CKD4, JUAN resolved Baseline Cr ~1.5, presented with Cr 2.6; prerenal JUAN resolved with IV->PO fluids. - Encourage continued PO intake - BMP daily - Avoid nephrotoxins HTN - History of, though not on medications at this time - BP goal for age, no interventions to be performed unless this changes DVT prophylaxis: Heparin 5000units SQ Q8H Diet: Low Fiber Disposition: Med/Surg, CM on board to assist with rehab placement (referrals pending) CODE STATUS: Full Code - surrogate decision maker is miguel Marie ([phone]) (2) Hyperkalemia: (3) Asymptomatic bacteriuria: (4) Acute kidney injury superimposed on CKD: (5) CKD (chronic kidney disease) stage 4, GFR 15-29 ml/min: (6) Hypoglycemia: Admission and Anticipated Discharge Date Admission Date: November 04, 2021 Supervising Physician Co-Signing Physician Notes I also saw the patient confirmed wade portions of the history and physical examination. I agree with the impression and plan as noted in the resident documentation. Exam 111/63, 86, 16, 36.7, 90% room air Pleasant and alert. No acute distress. Heart regular rate and rhythm Lungs clear throughout with nonlabored respirations Abdomen soft and nontender. Surgical incision is clean dry and intact, mora in place. Data Sodium 136, potassium 3.9, BUN 12, creatinine 1.07 Assessment and plan Status post right hemicolectomy for obstructing adenocarcinoma the colon Continue rehabilitation while in house, discharge pending final disposition Likely will need inpatient rehabilitation with final goal of returning home Will need outpatient oncology evaluation Else see resident documentation as noted. Subjective No acute events overnight. Diarrhea minimal - improving. Denies abdominal pain or redness around surgical incision. Denies fever/chills, chest pain, SOB, N/V, abdominal pain, rash. Review of Systems Review of Systems: All systems reviewed & are unremarkable except as noted in HPI & below Physical Exam Physical Exam: General: A&Ox3. NAD. Cooperative. HEENT: Atraumatic, normocephalic. Pulm: CTAB A&P. -wheezes, -rales, -rhonchi. Symmetrical chest rise. No increase work of breathing. No respiratory distress. Cardiac: RRR, -mrg. Radial pulses intact and symmetrical. No LE edema. Abdominal: soft, non-tender, non-distended, NA BS x 4. Surgical incision with mora in place and without surrounding erythema/warmth/tenderness. Results & Data Results & Data ([facility]) Vital Signs (Past 12 Hours) Vital Signs Temp Pulse Pulse Resp BP Pulse Ox 11/16/21 07:30 36.7 C 86 16 111/63 98 11/15/21 22:30 37.0 C 99 H 14 142/72 H 100 Resident Activity Tracking Resident Involvement: Resident Care Provided Care Provided: [facility] Medicine
[2021-11-16] MEDS ORDERED: POTASSIUM PHOSPHATE 6 MMOL in 0.9 % SODIUM CHLORIDE 100 ML IV ONE (09:00)
[2021-11-16] MEDS: MAGNESIUM SULFATE / D5W 1 GM/100 ML BAG IV SCH ×2 (09:16→11:29)
[2021-11-17] MEDS: HEPARIN SOD 5,000 UNIT/0.5 ML VIAL SQ SCH ×3 (05:26→21:50)
[2021-11-17 07:19] LABS: Hematocrit (blood only) 22.7 % (37-47); Hemoglobin 7.4 g/dL (12.0-16.0); Mean Corpuscular Hemoglobin 30.2 pg (25-34); Mean Corpuscular Hgb Conc 32.6 g/dL (32-36); Mean Corpuscular Volume 92.7 fL (80-100); Mean Platelet Volume 10.2 fL (7.4-10.4); Platelet Count 248 K/uL (130-400); RDW Coefficient of Variation 18.2 % (11.5-14.5); RDW Standard Deviation 58.4 fL (36.4-46.3); Red Blood Count 2.45 M/uL (4.2-5.4); White Blood Count 3.33 K/uL (4.8-10.8)
--- NOTE | 2021-11-17 07:44 | Hospitalist Progress Note ---
Date of Service November 17, 2021 Assessment & Plan (1) Adenocarcinoma of cecum: Plan: 80 yo F Hx ileocecal valve adenocarcinoma, HTN, CKD [address] [facility] on 11/04 for high grabe SBO 2/2 adenocarcinoma, now s/p R-sided laparoscopic hemicolectomy on 11/07. Pending placement to rehab. SBO secondary to Adenocarcinoma - Diagnosed with ileocecal valve adenocarcinoma in 04/17/2021 - CTAP: Infiltrative mass of cecum and ileocecal valve, resulting in high-grade small bowel obstruction. - s/p R-sided laparoscopic hemicolectomy on 11/07 - continue low fiber diet with progression to more solid foods as tolerated - Patient would like to f/u with Dr. Eli after discharge to discuss treatment options Leukopenia, improving No s/s infection. Unclear etiology. - peripheral smear showed monocytopenia, without dysplastic cells - possibly due to known colon cancer - trend CBC QOD Normocytic Anemia Suspect anemia of chronic disease (CKD4), especially given iron studies. - trend QOD as stated above - Hg dropping for 3 days from 9 to 7.4 today. will follow up afternoon H&H. asymptomatic and hemodynamically stable at this time, but could make argument of transfusion threshold at 7 given age, recent surgery, likely CAD with known bruits. If Hg <7.5 will transfuse 1u pRBC and advise close PCP follow up of anemia and leukopenia DVT prophylaxis: Heparin 5000units SQ Q8H Diet: Low Fiber Disposition: Med/Surg, CM on board to assist with rehab placement (referrals pending) CODE STATUS: Full Code - surrogate decision maker is miguel Marie ([phone]) (2) Hyperkalemia: (3) Asymptomatic bacteriuria: (4) Acute kidney injury superimposed on CKD: (5) CKD (chronic kidney disease) stage 4, GFR 15-29 ml/min: (6) Hypoglycemia: Admission and Anticipated Discharge Date Admission Date: November 04, 2021 Supervising Physician Co-Signing Physician Notes I also saw the patient confirmed wade portions of the history and physical examination. I agree with the impression and plan as noted in the resident documentation. She is lying supine in her bed. She really has no complaints. She denies any dizziness at rest or with ambulation. The patient tells me that she was ambulating with a 1 person assist and walker and felt better than she would have expected. Exam 120/68, 81, 18, 36.7, 90% room air Pleasant and alert. No acute distress. Heart regular rate and rhythm Lungs clear throughout with nonlabored respirations Abdomen soft and nontender. Surgical incision is clean dry and intact, mora in place. Data Hemoglobin 7.4, WBC 3.33 Phosphorus 2.5, magnesium 1.8 BUN 11, creatinine 0.9 Assessment and plan Status post right hemicolectomy for obstructing adenocarcinoma the colon Continue rehabilitation while in house, discharge pending final disposition Likely will need inpatient rehabilitation with final goal of returning home Will need outpatient oncology evaluation Anemia, acute on chronic Slowly downtrending, this is probably multifactorial -acute on chronic, postoperative, malignancy, and nutritional. She does not seem to be significantly symptomatic, nor does she have any known/documented coronary artery disease Will monitor; consider transfusion if continues to drop Else see resident documentation as noted. Subjective feeling well this AM, anxious to go home. Energetic, sitting in chair at side of the bed. Review of Systems Review of Systems: All systems reviewed & are unremarkable except as noted in Subjective Physical Exam Physical Exam: Constitutional: thin,in no apparent distress, sitting comfortably in chair at bedside Eyes: EOMI, pupils equal and reactive bilaterally, no scleral icterus Cardiac: RRR, no murmurs, gallops or rubs. Normal S1, S2 Pulm: CTA BL, no wheezes, rhonchi, crackles or rubs, moving air well throughout both lungs Abd: soft, nontender, incision healing well without erythema or drainage, mora in place Extremities: 2+ peripheral pulses, no edema Neuro: no focal deficits, moving all 4 limbs, A&Ox3 Results & Data Results & Data ([facility]) Vital Signs (Past 12 Hours) Vital Signs Temp Pulse Resp BP Pulse Ox 11/17/21 00:40 37 C 91 H 14 116/64 96 Resident Activity Tracking Resident Involvement: Resident Care Provided Care Provided: Adult [facility] Medicine
[2021-11-17 07:46] LABS: BUN Creatinine Ratio 12.2 (10-20); Calcium 6.8 mg/dl (8.5-10.1); Creatinine Clr Calc Pharmacy 33.3 ml/min; Est GFR (African American) 69.5 ml/min; Magnesium 1.8 mg/dl (1.7-2.4); Phosphorus 2.5 mg/dl (2.5-4.9); Potassium 3.5 mmol/L (3.5-5.1)
[2021-11-17 14:43] LABS: Hematocrit (blood only) 26.2 % (37-47); Hemoglobin 8.4 g/dL (12.0-16.0)
[2021-11-18] MEDS: HEPARIN SOD 5,000 UNIT/0.5 ML VIAL SQ SCH ×3 (06:19→20:22)
--- NOTE | 2021-11-18 09:03 | Hospitalist Progress Note ---
Date of Service November 18, 2021 Assessment & Plan (1) Adenocarcinoma of cecum: Plan: 80 yo F Hx ileocecal valve adenocarcinoma, HTN, CKD 4 admitted to [facility] on 11/04 for high grabe SBO 2/2 adenocarcinoma, now s/p R-sided laparoscopic hemicolectomy on 11/07. Pending placement to SNF. SBO secondary to Adenocarcinoma, resolved - Diagnosed with ileocecal valve adenocarcinoma in 04/17/2021 - CTAP: Infiltrative mass of cecum and ileocecal valve, resulting in high-grade small bowel obstruction. - s/p R-sided laparoscopic hemicolectomy on 11/07 - continue low fiber diet with progression to more solid foods as tolerated - Patient would like to f/u with Dr. Eli after discharge to discuss treatment options - Medically stable for discharge, authorization and bed acceptance for SNF pending Leukopenia, stable No s/s infection. Unclear etiology. - peripheral smear showed monocytopenia, without dysplastic cells - possibly due to known colon cancer - trend CBC QOD Normocytic Anemia, stable Suspect anemia of chronic disease (CKD4), especially given iron studies. - trend QOD as stated above - Hg stable at 8.4. Oscillation from 8.5 to 7.4 likely due to lab deviation - continues to be asymptomatic DVT prophylaxis: Heparin 5000units SQ Q8H, ambulate ad nilda with assistance Diet: Low Fiber Disposition: Med/Surg, D/C to [facility] pending CODE STATUS: Full Code - surrogate decision maker is miguel Marie ([phone]) (2) Hyperkalemia: (3) Asymptomatic bacteriuria: (4) Acute kidney injury superimposed on CKD: (5) CKD (chronic kidney disease) stage 4, GFR 15-29 ml/min: (6) Hypoglycemia: Admission and Anticipated Discharge Date Admission Date: November 04, 2021 Supervising Physician Co-Signing Physician Notes I also saw the patient confirmed wade portions of the history and physical examination. I agree with the impression and plan as noted in the resident documentation. Appetite is good. Continue to ambulate with walker. No overnight events. Exam 111/63, 85, 17, 36.2, 96% on room air Pleasant and alert. No acute distress. Heart regular rate and rhythm Lungs clear throughout with nonlabored respirations Abdomen soft and nontender. Surgical incision is clean dry and intact, mora in place. Data Recheck of hemoglobin late yesterday was up to 8.4 Assessment and plan Status post right hemicolectomy for obstructing adenocarcinoma the colon Continue rehabilitation while in house, discharge pending final disposition Tentative plan is for [facility] with physical therapy while there Will need outpatient oncology evaluation Anemia, acute on chronic Repeat yesterday showed improvement/stabilization; early a.m. lab yesterday looks to been artifactually low She does not seem to be significantly symptomatic, nor does she have any known/documented coronary artery disease CBC in a.m. Else see resident documentation as noted. Subjective Doing well this morning. eating and drinking well, ambulating with walker. no complaints. no overnight events. Review of Systems Review of Systems: All systems reviewed & are unremarkable except as noted in Subjective Physical Exam Physical Exam: Constitutional: thin,in no apparent distress, resting comfortably in bed Cardiac: RRR, Pulm: breathing comfortably on room air without any distress Abd: soft, nontender, incision healing well without erythema or drainage, mora in place Extremities: 2+ peripheral pulses, no edema Results & Data Results & Data ([facility]) Vital Signs (Past 12 Hours) Vital Signs Temp Pulse Pulse Resp BP Pulse Ox 11/18/21 07:53 36.2 C L 85 17 111/63 96 11/17/21 22:30 36.7 C 87 16 146/72 H 98 Resident Activity Tracking Resident Involvement: Resident Care Provided Care Provided: Adult Hospital Medicine
[2021-11-19 06:15] LABS: Basophils # (auto) 0.01 K/uL (0-0.2); Basophils % (auto) 0.3 %; Eosinophils # (auto) 0.04 K/uL (0-0.5); Eosinophils % (auto) 1.2 %; Hematocrit (blood only) 26.4 % (37-47); Hemoglobin 8.3 g/dL (12.0-16.0); Immature Granulocytes # (auto) 0.04 K/uL (0.00-0.02); Immature Granulocytes % (auto) 1.2 %; Lymphocytes # (auto) 0.84 K/uL (1.2-3.4); Lymphocytes % (auto) 24.6 %; Mean Corpuscular Hgb Conc 31.4 g/dL (32-36); Mean Corpuscular Volume 95.3 fL (80-100); Mean Platelet Volume 9.8 fL (7.4-10.4); Monocytes # (auto) 0.38 K/uL (0.11-0.59); Monocytes % (auto) 11.1 %; Neutrophils % (auto) 61.6 %; Platelet Count 286 K/uL (130-400); RDW Coefficient of Variation 18.9 % (11.5-14.5); RDW Standard Deviation 64.7 fL (36.4-46.3); Red Blood Count 2.77 M/uL (4.2-5.4); White Blood Count 3.41 K/uL (4.8-10.8)
--- NOTE | 2021-11-19 06:59 | Hospitalist Progress Note ---
Date of Service November 19, 2021 Assessment & Plan (1) Adenocarcinoma of cecum: Plan: 80 yo F Hx ileocecal valve adenocarcinoma, HTN, CKD [address] [facility] on 11/04 for high grabe SBO 2/2 adenocarcinoma, now s/p R-sided laparoscopic hemicolectomy on 11/07. Pending placement to SNF. SBO secondary to Adenocarcinoma, resolved - Diagnosed with ileocecal valve adenocarcinoma in 04/17/2021 - CTAP: Infiltrative mass of cecum and ileocecal valve, resulting in high-grade small bowel obstruction. - s/p R-sided laparoscopic hemicolectomy on 11/07 - continue low fiber diet with progression to more solid foods as tolerated - Patient would like to f/u with Dr. Eli after discharge to discuss treatment options - Medically stable for discharge, tentatively planning for home with home health PT/OT on 11/20 Leukopenia, stable No s/s infection. Unclear etiology. - peripheral smear showed monocytopenia, without dysplastic cells - possibly due to known colon cancer - trend CBC QOD Normocytic Anemia, stable Suspect anemia of chronic disease (CKD4), especially given iron studies. - trend QOD as stated above - Hg stable at 8.4. Oscillation from 8.5 to 7.4 likely due to lab deviation - continues to be asymptomatic DVT prophylaxis: Heparin 5000units SQ Q8H, ambulate ad nilda with assistance Diet: Low Fiber Disposition: Med/Surg, tentatively planning to d/c home with home health PT/OT on 11/20 CODE STATUS: Full Code - surrogate decision maker is miguel Marie ([phone]) (2) Hyperkalemia: (3) Asymptomatic bacteriuria: (4) Acute kidney injury superimposed on CKD: (5) CKD (chronic kidney disease) stage 4, GFR 15-29 ml/min: (6) Hypoglycemia: Admission and Anticipated Discharge Date Admission Date: November 04, 2021 Supervising Physician Co-Signing Physician Notes I personally examined the patient and verified all wade points of history and exam, discussed case, and agree with decision making with Dr Cespedes wants to go home now instead of SNF. d/w therapy at bedside - thinking this is probably reasonable as long as she makes some modifications and maybe is able to handle stairs better vitals noted nad heent ncnat mmm breathing unlabored no accessory muscles good effort skin no rashes no pallor or icterus Assessment and plan Status post right hemicolectomy for obstructing adenocarcinoma the colon doing well - initial plan was SNF but now she's looking at home - ?possibly tomorrow -close outpt oncology f/u Anemia, acute on chronic follow periodically otherwise as above Subjective No acute events overnight. Patient feels well overall, no complaints. Denies fever/chills, chest pain, SOB, N/V, abdominal pain, diarrhea, rash. Review of Systems Review of Systems: All systems reviewed & are unremarkable except as noted in HPI & below Physical Exam Physical Exam: General: A&Ox3. NAD. Cooperative. HEENT: Atraumatic, normocephalic. Pulm: CTAB A&P. -wheezes, -rales, -rhonchi. Symmetrical chest rise. No increase work of breathing. No respiratory distress. Cardiac: RRR, -mrg. Radial pulses intact and symmetrical. No LE edema. Abdominal: soft, non-tender, non-distended, NA BS x 4. Surgical incision with mora in place and without surrounding erythema/warmth/tenderness. Results & Data Results & Data ([facility]) Vital Signs (Past 12 Hours) Vital Signs Temp Pulse Resp BP Pulse Ox 11/18/21 23:31 36.9 C 71 18 127/64 96 Resident Activity Tracking Resident Involvement: Resident Care Provided Care Provided: Adult Hospital Medicine
[2021-11-19 07:19] LABS: BUN Creatinine Ratio 10.3 (10-20); Est GFR (African American) 56.4 ml/min; Est GFR (Non-African American) 48.6 ml/min; Magnesium 1.5 mg/dl (1.7-2.4); Potassium 3.9 mmol/L (3.5-5.1)
[2021-11-19] MEDS: HEPARIN SOD 5,000 UNIT/0.5 ML VIAL SQ SCH ×2 (07:49→20:19)
[2021-11-19] MEDS: MAGNESIUM SULFATE / D5W 1 GM/100 ML BAG IV SCH ×3 (08:21→10:23)
--- NOTE | 2021-11-19 10:48 | Surgery Progress Note ---
Date of Service November 19, 2021 Assessment & Plan (1) Adenocarcinoma of cecum: Plan: POD 12 doing well, awaiting placement skin mora removed f/u in clinic in 3-4 weeks Admission and Anticipated Discharge Date Admission Date: November 04, 2021 Subjective tolerating diet Physical Exam Gastrointestinal (Abdomen): Inspection/Auscultation: + abdominal surgical incision (healing well); abdomen not distended Percussion/Palpation: abdomen soft Results & Data ([facility]) Vital Signs (Past 12 Hours) Vital Signs Temp Pulse Resp BP Pulse Ox 11/19/21 07:53 36.5 C 84 16 125/61 95 11/18/21 23:31 36.9 C 71 18 127/64 96 PG Care Time/CCT Total # of Minutes Spent Total Time Spent with Patient: Total time spent is greater than 50% in coordination of care (as documented) at patient's floor/unit and/or counseling patient: Coding Level of Care Code None Diagnoses Adenocarcinoma of cecum C18.0
[2021-11-19] MEDS: MAGNESIUM OXIDE 400 MG TAB PO SCH ×2 (11:41→20:20)
--- NOTE | 2021-11-19 17:37 | Billing Data ---
Date of Service November 19, 2021 Coding Level of Care Code 49176 Subseq Hosp Care Lvl 2
--- NOTE | 2021-11-20 06:49 | Discharge Summary ---
Date of Service November 20, 2021 Admission HPI Per Admitting Provider Jeana is an 80-year-old female with a past medical history of known adenocarcinoma of the bowel, CKD 4, carotid bruits, and hypertension who presents with a small bowel obstruction. CT shows infiltrative mass of the cecum and ileocecal valve and high-grade SBO. Surgery was consulted, recommend admission and anticipate surgical intervention during this hospitalization. Jeana reports that she has had progressive nausea, vomiting, and stomach distention for the last 2 weeks. She has a known cancer in her bowels which she has not wanted surgery or treatment for up until now. She reports that 2 weeks ago her symptoms suddenly worsened, she became very nauseous and would have vomiting with any attempted meals, thin liquids, or milk. She reports her vomiting is mostly light-colored to clear/pinkish/orange. She has had no blood in her emesis, no black emesis. Denies abdominal pain, endorses abdominal soft distention. She is continued to have some bowel movements, takes laxatives at home but these are relatively small. Formed, not liquid and without blood or melena. Denies shortness of breath, difficulty breathing, chest pain, chest pressure, cough. Denies fever, chills, sweats. She denies a history of cardiac or lung disease. Medical History: Reviewed Medications: Reviewed Surgical History: Reviewed Allergies: Reviewed Social History: Code Status: Full code. Discussed with patient, she reports that in emergency she would want her medical decision-maker to be her miguel Castillo. Available at #[phone] Admission Exam Per Admitting Provider General: A&Ox3. NAD. Cooperative. HEENT: Atraumatic, normocephalic. Visual acuity and hearing grossly intact. Pupils equal and reactive to light. Pulm: CTAB A&P. -wheezes, -rales, -rhonchi. Symmetrical chest rise. No increase in work of breathing. No respiratory distress. Cardiac: RRR, -mrg. Radial pulses intact and symmetrical. Abdominal: Softly distended, mild diffuse tenderness without rebound tenderness or guarding. Bowel sounds diminished. Extremities: Warm, dry. No edema. Sensation to soft touch intact in hands and feet without asymmetry. Registered Clinical Dietitian strength, ankle dorsiflexion, ankle plantar flexion intact bilaterally. PT pulse and radial pulse intact bilaterally. Principal Diagnosis SBO due to Adenocarcinoma Discharge Exam General: A&Ox3. NAD. Cooperative. HEENT: Atraumatic, normocephalic. Pulm: CTAB A&P. -wheezes, -rales, -rhonchi. Symmetrical chest rise. No increase work of breathing. No respiratory distress. Cardiac: RRR, -mrg. Radial pulses intact and symmetrical. No LE edema. Abdominal: soft, non-tender, non-distended, NA BS x 4. Surgical incision healed well, c/d/i, and without surrounding erythema/warmth/tenderness. Discharge Data Allergies Allergy/AdvReac Type Severity Reaction Status Date / Time No Known Allergies Allergy Verified 11/04/21 15:08 Consultations 11/04/21 16:09 ED Decision to Admit Stat 11/04/21 19:02 Consult General Surgery Routine Procedures Performed Operation Date: 11/06/21 13:15 Actual Procedures p Right Laparoscopic Hand Assited Hemicolectomy(Not Applicable) - Ronal Corbin, , FACS Ordered Studies 11/04/21 13:52 CT abd pelvis wo con Stat Hospital Course (1) Adenocarcinoma of cecum: 80 yo F Hx ileocecal valve adenocarcinoma, HTN, CKD 4 admitted to [facility] on 11/04 for high grabe SBO 2/2 adenocarcinoma, now s/p R-sided laparoscopic hemicolectomy on 11/07. SBO secondary to Adenocarcinoma, resolved - Diagnosed with ileocecal valve adenocarcinoma in 04/17/2021 - CTAP: Infiltrative mass of cecum and ileocecal valve, resulting in high-grade small bowel obstruction. - s/p R-sided laparoscopic hemicolectomy on 11/07 - continue low fiber diet with progression to more solid foods as tolerated - Patient would like to f/u with Dr. Eli after discharge to discuss treatment options - home with home health PT/OT on 11/20 Leukopenia, stable No s/s infection. Unclear etiology. - peripheral smear showed monocytopenia, without dysplastic cells - possibly due to known colon cancer - trend as outpatient - f/u with PCP Normocytic Anemia, stable Suspect anemia of chronic disease (CKD4), especially given iron studies. - Hg stable at 8.4. Oscillation from 8.5 to 7.4 likely due to lab deviation - continues to be asymptomatic - trend as outpatient, and f/u with PCP as stated above (2) Hyperkalemia: (3) Asymptomatic bacteriuria: (4) Acute kidney injury superimposed on CKD: (5) CKD (chronic kidney disease) stage 4, GFR 15-29 ml/min: (6) Hypoglycemia: Total Time Total Time Spent Total Time Spent (In Minutes): 30 minutes Discharge Plan Discharge Items Patient Disposition: Home - Home Health Services Reason For Visit: SBO, W/ ADENOCARCINOMA Discharge Diagnosis: SBO due to adenocarcinoma Activity: Per Instructions section Lifting: No more than 10 pounds Bathing Comment: may shower; no soaking in tubs/pools Exercise/Sports: Wait until after follow-up appointment Driving/Machine Use: when pain free Non-emergency contact: Primary Care Provider and Surgeon Call non-emergency contact if: you have any medication questions, your symptoms worsen, your pain is worsening, your pain is concerning for you, you have a fever, your temperature is above 101.5, your wound has increased redness, your wound has increased drainage and your wound pain has increased Follow-up/Referrals: Manjeet Heath MD [Primary Care Provider] - 11/28/21 2:00 pm (please schedule f/u within 1 week of discharge) Ronal Corbin DO, RAMON [Physician] - 12/14/21 9:00 am (You have an appt on FriDecember 14 at 9:00 AM) Yamile Eli MD [Physician] - (please schedule f/u 1-2 weeks after discharge) Diet: Low Fiber Addtl Attending Provider Instructions: You were admitted to the hospital for trouble with food intake and vomiting at home. You were found to have what is called a small bowel obstruction, where the stools cannot pass through the intestines due to a blockage. That blockage was determined to be a large mass in the intestines. You had surgery to remove the part of the bowel that was obstructed. Since you have been tolerating food well and able to move around in your hospital room without difficulty, we feel you are safe for discharge home with the following recommendations: 1) Please follow up in the next 7 days with your family doctor. 2) Please follow up with Dr. Eli (Hematology/Oncology) for next steps to proper evaluation and treatment of the cancer that was found during surgery 3) It is also very important that you have follow up with your surgeon in 3-4 weeks. The number to call their office is [phone]. We hope you continue to feel better. It was a pleasure to help provide your care while you were hospitalized. Pending Studies at Discharge: Yes Stand-Alone Forms: My [facility], Smoking Cessation Medications and DC Order Prescriptions: Continued acetaminophen [Tylenol Extra Strength] 500 mg Tablet 1,000 mg PO Q6H PRN (Reason: Pain) RF: 0 Discharge Orders: Discharge Order (Routine); Ordered 11/20/21 Ordered By: Adi Smith/Other Patient Handouts: Low-Fiber Diet Admission Data Admit Date/Time: 11/04/21 17:47 Attending Provider: Bryan Xiao Admit Provider: Héctor Rivera Primary Care Provider: Manjeet Heath Other Providers: Héctor Rivera ; Jamal Heaton ; [facility] ; [place] ; [facility] ; [facility], ; [facility] Other Interventions: Discharge Summary Assessment (RN) Last Done: 11/20/21 14:59 Supervising Physician Co-Signing Physician Notes I personally examined the patient and verified all wade points of history and exam, discussed case, and agree with decision making with Dr Cespedes Wants to go home, feels up to going home, significant other present and ready to take her home. vitals noted nad heent ncnat mmm breathing unlabored no accessory muscles good effort skin no rashes no pallor or icterus Assessment and plan Status post right hemicolectomy for obstructing adenocarcinoma the colon doing well - initial plan was SNF but now she's looking at home -and stable to do so today -Outpatient PT/OT -close outpt oncology f/u Anemia, acute on chronic follow periodically otherwise as above Resident Activity Tracking Resident Involvement: Resident Care Provided Care Provided: Adult [facility]
[2021-11-20] MEDS: HEPARIN SOD 5,000 UNIT/0.5 ML VIAL SQ SCH (07:59)
--- NOTE | 2021-11-20 16:56 | Billing Data ---
Date of Service November 20, 2021 Coding Level of Care Code D/C DAY MANAGEMENT <30 MINS
== END 2021-11-20 15:45 | disposition home health service (06) | DRG 330 ==
LOC: ED 12:49 → 3N 17:47 → SUATTDRO 17:47 → 3N 18:30
DX: E83.42 Hypomagnesemia; Z87.891 Personal history of nicotine dependence; E87.2 Acidosis; C18.0 Malignant neoplasm of cecum; Z83.3 Family history of diabetes mellitus; R64 Cachexia; D63.8 Anemia in other chronic diseases classified elsewhere; N18.4 Chronic kidney disease, stage 4 (severe); E16.2 Hypoglycemia, unspecified; R82.71 Bacteriuria; N17.9 Acute kidney failure, unspecified; I12.9 Hypertensive chronic kidney disease with stage 1 through stage 4 chronic kidney disease, or unspecified chronic kidney disease; E87.5 Hyperkalemia; K56.609 Unspecified intestinal obstruction, unspecified as to partial versus complete obstruction

== ENCOUNTER 2025-07-28 10:31 | Inpatient (IN) ==
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
[2025-07-28 11:20] LABS: Hematocrit (blood only) 37.6 % (37.0-47.0); Hemoglobin 11.8 g/dL (12.0-16.0); Immature Granulocytes # (auto) 0.04 K/uL (0.01-0.20); Immature Granulocytes % (auto) 0.4 %; Mean Corpuscular Hemoglobin 30.3 pg (25.0-34.0); Mean Corpuscular Volume 96.7 fL (80.0-100.0); Platelet Count 307 K/uL (130-400); RDW Standard Deviation 51.9 fL (36.4-46.3); Red Blood Count 3.89 M/uL (4.20-5.40); White Blood Count 10.61 K/ul (4.8-10.8)
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
[2025-07-28 11:38] LABS: Alanine Aminotransferase 11.0 U/L (7-52); Albumin Globulin Ratio 1.1 (0.9-2); Albumin Level 4.1 gm/dl (3.4-5.0); Alkaline Phosphatase 152.0 U/L (34-104); Anion Gap 10.0 (3-11); Bilirubin,Total 0.4 mg/dl (0.2-1.0); Blood Urea Nitrogen 33.0 mg/dl (6-23); Calcium 9.2 mg/dl (8.6-10.3); Carbon Dioxide 16.0 mmol/L (21-32); Chloride 115.0 mmol/L (98-107); Creatinine Clr Calc Pharmacy 16.5 ml/min; Globulin 3.6 gm/dl (2.5-4.0); Glucose 106.0 mg/dl (70-99(Fasting)); Lipase 50.0 U/L (11-82); Potassium 4.4 mmol/L (3.5-5.1); Sodium 141.0 mmol/L (136-145); Total Protein 7.7 gm/dl (6.0-8.3)
[2025-07-28 11:49] LABS: INR 1.0 (0.9-1.1); Partial Thromboplastin Time 26 Seconds (21-31); Prothrombin Time 10.3 Seconds (9.0-12.0)
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
[2025-07-28 13:46] LABS: Appearance Urine Clear (Clear); Bacteria Urine Automated 4+ (None Seen); Cast Urine Automated 0-2 /lpf (0-2); Glucose Urine UA Negative (Negative); RBC Urine Automated 0-2 /hpf (0-2); WBC Urine Automated 21-50 /hpf (0-5)
[2025-07-28 14:32] LABS: Amphetamines+Metham, Urine Neg (Neg); MDMA (Ecstacy), Urine Neg (Neg); Marijuana, Urine Neg (Neg)
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
[2025-07-28] MEDS: cefTRIAXone SODIUM 2,000 MG/50 ML BAG IV STA (15:16)
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
--- NOTE | 2025-07-28 15:31 | XRay Report ---
XR foot RT min 3V routine CLINICAL HISTORY: post splinting COMPARISON: Right foot radiographs and CT of the right foot performed earlier today. FINDINGS: Fine detail is diminished given overlying splint. However, alignment of the comminuted min imally displaced calcaneal fracture appears similar to prior radiographs and CT. Posterior and planta r canal spurring is noted. No additional fractures are identified. IMPRESSION: Redemonstration of a comminuted minimally displaced calcaneal fracture post splinting. ACT 112: Negative or not required by law. Electronically signed by: Carlos Linn M.D. 07/28/2025 3:30 PM
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
--- NOTE | 2025-07-28 15:32 | XRay Report ---
XR ankle RT min 3V routine HISTORY: 84 years-old Female post splint acute pain of the right ankle COMPARISON: CT right foot same day TECHNIQUE: 3 views of the right ankle FINDINGS: Acute and comminuted calcaneal fractures redemonstrated, difficult to visualize secondary to overlyin g casting material. Alignment appears unchanged. Soft tissue swelling with osteoarthritis. IMPRESSION: Unchanged alignment of the acute and comminuted calcaneal fractures, better seen on the c omparison CT. ACT 112: Negative or not required by law. The above report was generated using voice recognition software. It may contain grammatical, syntax o r spelling errors. Electronically signed by: Timo Maguire M.D. 07/28/2025 3:31 PM
--- NOTE | 2025-07-28 15:41 | Procedure Note ---
Procedure Note Date of Service July 28, 2025 Note Right lower extremity splinting: After verbal consent was obtained a well-padded well molded right leg AO splint with posterior slab and stirrup was placed. Patient tolerated splinting well there were no immediate complications. Post splinting x-rays were obtained which showed well-padded and well molded splint in appropriate position. Post splinting exam revealed sensation intact to light touch in all of the exposed toes and in the first webspace, capillary fill less than 3 seconds all of the toes, patient able to actively flex and extend the great toe and other toes, no complaints of paresthesias. Coding
[2025-07-28] MEDS: ACETAMINOPHEN 1,000 MG/100 ML VIAL IV SCH (17:51)
[2025-07-28] MEDS: HEPARIN SOD 5,000 UNIT/0.5 ML VIAL SQ SCH (20:08)
[2025-07-29 07:20] LABS: Hematocrit (blood only) 33.4 % (37.0-47.0); Hemoglobin 10.5 g/dL (12.0-16.0); Mean Corpuscular Hemoglobin 30.6 pg (25.0-34.0); Mean Corpuscular Volume 97.4 fL (80.0-100.0); Platelet Count 267 K/uL (130-400); RDW Standard Deviation 51.9 fL (36.4-46.3); Red Blood Count 3.43 M/uL (4.20-5.40); White Blood Count 7.30 K/ul (4.8-10.8)
[2025-07-29 07:39] LABS: Albumin Level 3.9 gm/dl (3.4-5.0); Anion Gap 7.0 (3-11); Blood Urea Nitrogen 30.0 mg/dl (6-23); Carbon Dioxide 18.0 mmol/L (21-32); Chloride 116.0 mmol/L (98-107); Creatinine Clr Calc Pharmacy 18.8 ml/min; Glucose 103.0 mg/dl (70-99(Fasting)); Magnesium 1.8 mg/dl (1.7-2.4); Potassium 4.6 mmol/L (3.5-5.1); Sodium 141.0 mmol/L (136-145)
[2025-07-29 08:26] LABS: Calcium 8.8 mg/dl (8.6-10.3)
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
[2025-07-29] MEDS: ACETAMINOPHEN 500 MG TAB PO SCH (09:01)
[2025-07-29] MEDS: VALSARTAN 80 MG TAB PO SCH (10:21)
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
[2025-07-29 22:39] VITALS: RESP 16
[2025-07-30 06:41] LABS: Hematocrit (blood only) 31.0 % (37.0-47.0); Hemoglobin 9.8 g/dL (12.0-16.0); Mean Corpuscular Hemoglobin 30.5 pg (25.0-34.0); Mean Corpuscular Volume 96.6 fL (80.0-100.0); Platelet Count 270 K/uL (130-400); RDW Standard Deviation 51.8 fL (36.4-46.3); Red Blood Count 3.21 M/uL (4.20-5.40); White Blood Count 7.65 K/ul (4.8-10.8)
[2025-07-30 07:17] LABS: Anion Gap 7.0 (3-11); Blood Urea Nitrogen 35.0 mg/dl (6-23); Calcium 8.4 mg/dl (8.6-10.3); Carbon Dioxide 17.0 mmol/L (21-32); Chloride 114.0 mmol/L (98-107); Creatinine Clr Calc Pharmacy 17.0 ml/min; Glucose 100.0 mg/dl (70-99(Fasting)); Potassium 4.3 mmol/L (3.5-5.1); Sodium 138.0 mmol/L (136-145)
[2025-07-30 07:33] VITALS: O2SAT 97
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
--- NOTE | 2025-07-30 08:44 | Orthopedic Progress Note ---
Date of Service July 30, 2025 Assessment & Plan (1) Calcaneus fracture, right: Plan: 1. Right closed comminuted depressed calcaneus fracture - Continue with nonweightbearing right lower extremity for a minimum of 6 to 12 weeks. Will maintain short leg splint for approximately 2 weeks from the injury, plan will then be to transition her to a short leg cast which will be in place for a minimum of 4 weeks but potentially much longer. Eventually would like to transition her to a CAM walker boot this may take several weeks to months. Right short leg splint is clean, dry, and intact. This will be left in place. Continue with multimodal pain control, currently she is only requiring Tylenol. Recommend minimize narcotic use is much as able. - Continue with ice and elevation right foot and ankle for swelling Continue work with physical therapy and Occupational Therapy, maintaining nonweightbearing to the right lower extremity and encouraging safe mobilization as she is able. Patient lives alone and she is going to need placement in a rehab facility. Case management working on placement. Continue to monitor for signs and symptoms of compartment syndrome including severe worsening uncontrolled pain, paresthesias, skin color changes. Currently plan is for nonoperative management of this injury. Patient has agreement with this, she states that she is not interested in having surgery at this time. If she is interested in surgery in the future or if this becomes required I would recommend referral to a orthopedic foot and ankle surgeon or an orthopedic traumatologist for further care. DVT prophylaxis with heparin. I do recommend that she be placed on oral DVT prophylaxis with aspirin 81 mg twice daily when she is discharged from the hospital due to anticipated prolonged period of immobilization of the right lower extremity. Patient can follow-up with me as an outpatient on 08/12/2025. I will continue to monitor her while she is admitted. 2. Other medical comorbidities: CKD, HTN, gout, urinary tract infection Will defer management to medicine team and continue to monitor. Admission and Anticipated Discharge Date Admission Date: July 28, 2025 Subjective Patient seen and evaluated today at bedside. She is resting comfortably in bed. States that her pain is well-controlled with Tylenol she is not requiring any narcotic medication at this time. She denies any numbness or tingling in the right lower extremity. She states that her pain is more of an ache it is not severe or sharp in nature. She was able to get up with physical therapy at the bedside yesterday she is able to stand bearing weight on her left lower extremity her left lower extremity was slightly sore but was able to tolerate this well. She is a walker when she got up. She does not take any steps or do any walking but she was able to offload her right lower extremity with therapy. She is planning on discharging to a rehab facility early next week. Physical Exam Physical Exam: General: Patient is awake, alert, she is in no acute distress. Afebrile, vital signs are stable with exception of blood pressure 143/76. Musculoskeletal: Right lower extremity: - Skin proximal and distal to short leg splint clean, dry, and intact. - There is a short leg splint present ab out the right lower extremity which is clean, dry, and intact. Right lower extremities elevated on a pillow with ice pack over the splint. - Patient is able to actively flex and e xtend all of the toes including the great toe. EHL/FHL strength is 5/5. - There is no pain produced with passive flexion or extension of the great toe - Sensation is intact to light touch in the first webspace and all of the toes both plantar and dorsal surfaces - DP pulse is 2+ - Toes are warm and well-perfused capill carine fill is less than 3 seconds - Patient is able to flex the knee to 90 degrees and fully extend the knee without any pain - No hip pain with flexion to approximat rom 80 degrees Results & Data Vital Signs (Past 12 Hours) Vital Signs Temp Pulse Pulse Resp BP BP Pulse Ox 07/30/25 08:16 69 07/30/25 07:32 36.9 C 68 16 143/76 H 97 07/30/25 02:15 36.5 C 85 16 114/53 L 93 07/29/25 22:36 36.6 C 82 16 147/74 H 97 07/29/25 22:05 83 O2 Del Method 07/30/25 08:16 07/30/25 07:32 Room Air 07/30/25 02:15 Room Air 07/29/25 22:36 Room Air 07/29/25 22:05 (1) Calcaneus fracture, right Calcaneus location: unspecified portion of calcaneus Encounter type: initial encounter Fracture alignment: displaced Fracture type: closed Qualified Code(s): S92.001A - Unspecified fracture of right calcaneus, initial encounter for closed fracture
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
[2025-07-30 11:08] VITALS: TEMP 97.3
[2025-07-30 11:20] VITALS: BP 114/53; PULSE 76
== END 2025-07-30 13:33 | DRG 563 ==
LOC: ED 10:31 → 2N 15:16 → SUATTDRO 15:16 → 2N 15:58